=== PATIENT | male | born 1945 | race Caucasian/White ===

== ENCOUNTER → 2017-11-04 10:19 | Outpatient (CLI) | payer MEDICARE, SELFPAY ==
[2016-11-18 08:42] VITALS: BMI 29.2
[2017-11-04 11:27] LABS: AST(SGOT) 41 U/L (15-37); Alanine Aminotransfer ALT/SGPT 42 U/L (16-61); Albumin, Serum 3.9 g/dL (3.2-5.0); Alkaline Phosphatase 92 U/L (45-117); Bilirubin, Direct 0.22 mg/dL (0.00-0.30); Cholesterol 100 mg/dL (200); High Density Lipoprotein 56 mg/dL; Protein, Total 6.9 g/dL (6.4-8.2); Triglycerides 58 mg/dL; Very Low Density Lipoprotein 12 mg/dL (5-40)
== END ==
PROVIDERS: Family Provider Family Medicine; PCP Family Medicine; Visit Provider Internal Medicine Cardiovascular Disease
DX: I25.10 Atherosclerotic heart disease of native coronary artery without angina pectoris (principal); I25.2 Old myocardial infarction; E78.5 Hyperlipidemia, unspecified; Z95.5 Presence of coronary angioplasty implant and graft
CPT/HCPCS: 36415; 80061; 80076

== ENCOUNTER → 2017-11-23 12:40 | Outpatient (CLI) | payer MEDICARE, SELFPAY ==
[2016-11-18 08:42] VITALS: BMI 29.2
--- NOTE | 2017-11-23 12:41 | ECHOD_ITS ---
Reason For Study: CAD/ASHD Procedure This was a 2D Doppler, Color Flow transthoracic echocardiogram. Exam performed in department. Left Ventricle Normal size and thickness. The estimated ejection fraction is 60 %. Stage 1 diastolic dysfunction. There are regional wall motion abnormalities as specified. Mid-Anterior : Hypokinetic. Anterior [place] : Mildly hypokinetic. Right Ventricle Normal size and thickness. Normal systolic function. Atria Normal left atrium. Normal right atrium. Normal atrial septum. Mitral Valve The mitral valve is structurally normal. No prolapse or stenosis seen. Tricuspid Valve Normal tricuspid valve. Trivial tricuspid valve insufficiency. Right ventricular systolic pressure estimated to be 30 mmHg. Aortic Valve Normal aortic valve. Trisinus/trileaflet aortic valve. Pulmonic Valve Normal pulmonic valve. Great Vessels Normal aortic root. Normal arch. Normal inferior vena cava. Inferior vena cava collapse with sniff. Pericardium/Pleural No pericardial effusion. MMode/2D Measurements & Calculations LVIDd: 5.0 cm IVSd: 1.2 cm Ao root diam: 3.0 cm LVIDs: 3.5 cm LVPWd: 1.1 cm LA dimension: 3.8 cm RVDd: 2.2 cm FS: 30.5 % LAV(MOD-bp): 52.2 ml LA A4 area: 16.7 cm2 RA A4 area: 14.2 cm2 LAV(MOD-bp) Indexed: 25.1 ml/m2 LAV(MOD-sp2): 60.8 ml LAV(MOD-sp4): 44.0 ml Doppler Measurements & Calculations MV E max john: 45.9 cm/sec Lat Peak E' John: 7.6 cm/sec Med Peak E' John: 5.9 cm/sec MV A max john: 65.6 cm/sec E/E' lat: 6.1 E/E' med: 7.7 MV E/A: 0.70 Ao V2 max: 118.9 cm/sec LV V1 max: 116.2 cm/sec PA V2 max: 102.1 cm/sec Ao max P.7 mmHg LV V1 max P.4 mmHg TR max john: 250.0 cm/sec TR max P.0 mmHg Interpretation Summary The estimated ejection fraction is 60 %. Stage 1 diastolic dysfunction. Mid-Anterior : Hypokinetic Anterior [place] : Mildly hypokinetic Trivial tricuspid valve insufficiency. Right ventricular systolic pressure estimated to be 30 mmHg. Compared to echo report dated 11/18/2016, LV function has improved from 50% to 60% with mild residual mid anterior and elenita-apical hypokinesis. Ordering Physician: Ke Goldberg Referring Physician: Jean-Pierre Seymour Performed By: Madiha Ospina, ADLAID, RVT
== END ==
PROVIDERS: Family Provider Family Medicine; PCP Family Medicine; Visit Provider Internal Medicine Cardiovascular Disease
DX: I25.2 Old myocardial infarction (principal)
CPT/HCPCS: 93306

== ENCOUNTER → 2018-04-11 14:25 | Outpatient (CLI) | payer MEDICARE, SELFPAY ==
[2016-11-18 08:42] VITALS: BMI 29.2
[2018-04-11 15:35] LABS: Absolute Lymphocyte Count 1.26 X10^3/ul (0.83-4.51); Absolute Neutrophil Count 5.6 X10^3/uL (2.0-7.7); Basophil# 0.01 X10^3/uL; Basophil% 0.1 % (0-1); Eosinophil# 0.31 X10^3/uL; Eosinophils% 3.8 % (0-5); Hematocrit 43.6 % (40-54); Hemoglobin 14.6 g/dl (13.0-16.5); Lymphocyte # 1.26 X10^3/ul (4.0); Lymphocyte % 15.6 % (19-41); Mean Corp Hgb Conc 33.5 g/gl (32-36); Mean Corpuscular Hgb 31.6 pg (27.0-32.0); Mean Corpuscular Volume 94.4 fL (80-94); Monocyte# 0.91 X10^3/uL; Monocyte% 11.2 % (0-10); Neutrophil % 69.2 % (47-70); Platelet Count 184 K/mm3 (150-450); RBC Distribution Width CV 13.8 % (11.6-14.6); RBC Distribution Width SD 47.2 fl (35.1-43.9); Red Blood Count 4.62 M/mm3 (4.6-6.2); White Blood Count 8.1 K/mm3 (4.4-11.0)
[2018-04-11 15:36] LABS: POSITIVE COUNT NO; POSITIVE DIFFERENTIAL NO; POSITIVE MORPHOLOGY NO
[2018-04-11 15:49] LABS: ALB/GLOB Ratio 1.1 RATIO (0.9-2.4); AST(SGOT) 36 U/L (15-37); Alanine Aminotransfer ALT/SGPT 33 U/L (16-61); Albumin, Serum 3.9 g/dL (3.2-5.0); Alkaline Phosphatase 113 U/L (45-117); Anion Gap 9 (5-15); BUN 26 mg/dL (7-18); Calcium,Total 9.1 mg/dL (8.5-10.1); Chloride 101 mmol/L (98-107); Creatinine, Serum 1.04 mg/dL (0.70-1.30); EST Glomerular Filtration Rate 75 mL/min (>60); Est Glom Filt Rate - Afr Amer 91 mL/min (>60); Globulin 3.7 g/dL (2.2-4.2); Glucose 93 mg/dL (74-106); Potassium 4.2 mmol/L (3.5-5.1); Protein, Total 7.6 g/dL (6.4-8.2); Sodium Level 138 mmol/L (136-145)
[2018-04-11 16:02] LABS: Erythrocyte Sedimentation Rate 19 mm/hr (0-20)
== END ==
PROVIDERS: Family Provider Family Medicine; PCP Family Medicine; Visit Provider Family Medicine
DX: K57.32 Diverticulitis of large intestine without perforation or abscess without bleeding (principal)
CPT/HCPCS: 36415; 80053; 85025; 85652; 86140

== ENCOUNTER → 2018-12-20 09:00 | Outpatient (CLI) | payer MEDICARE, SELFPAY ==
[2016-11-18 08:42] VITALS: BMI 29.2
[2018-12-15 11:13] VITALS: BMI 27.3
[2018-12-20 10:34] LABS: AST(SGOT) 37 U/L (15-37); Alanine Aminotransfer ALT/SGPT 36 U/L (16-61); Albumin, Serum 3.6 g/dL (3.2-5.0); Alkaline Phosphatase 104 U/L (45-117); Bilirubin, Direct 0.26 mg/dL (0.00-0.30); Cholesterol 103 mg/dL (200); Globulin 3.3 g/dL (2.2-4.2); High Density Lipoprotein 55 mg/dL; Protein, Total 6.9 g/dL (6.4-8.2); Triglycerides 52 mg/dL; Very Low Density Lipoprotein 10 mg/dL (5-40)
== END ==
PROVIDERS: Family Provider Family Medicine; PCP Family Medicine; Referring Provider Internal Medicine Cardiovascular Disease; Visit Provider Internal Medicine Cardiovascular Disease
DX: E78.5 Hyperlipidemia, unspecified (principal); I25.10 Atherosclerotic heart disease of native coronary artery without angina pectoris
CPT/HCPCS: 36415; 80061; 80076

== ENCOUNTER → 2018-12-29 10:22 | Outpatient (CLI) | payer MEDICARE, SELFPAY ==
[2016-11-18 08:42] VITALS: BMI 29.2
[2018-12-15 11:13] VITALS: BMI 27.3
--- NOTE | 2018-12-29 10:23 | STEWCON_ITS ---
Reason For Study: CAD Stress Results Protocol: Anatoliy Protocol Maximum Predicted HR: 149 bpm Target HR: 127 bpm % Maximum Predicted HR: 95 % DurationHeart Rate Stage (mm:ss) (bpm) BP Comment Baseline 69 122/80No Chest Pain; Diluted Definity 3 ML Given Anatoliy Protocol Stage I 3:00 96 130/72No Chest Pain Anatoliy Protocol Stage II 3:00 107 138/64No Chest Pain Anatoliy Protocol Stage III 3:00 133 146/60No Chest Pain Anatoliy Protocol Stage IV 0:30 141 / No Chest Pain Recovery 70 124/72No Chest Pain Stress Duration: 9:30 mm:ss Maximum Stress HR: 141 bpm METS: 11 Baseline Echocardiogram Findings The estimated ejection fraction is 65 %. Stress Echo Wall motion Data Resting WM Intermediate WM Stress WM Resting Wall Motion Wall Motion Stress No regional wall motion No regional wall motion abnormalities noted. abnormalities noted. EKG Data The baseline ECG displays normal sinus rhythm. The patient exercised according to the regular Anatoliy protocol for a total duration of 9:30. The maximum heart rate attained was 155 beats per minute. This was 104% of maximum predicted heart rate. The patient exercised into stage 4 of the Anatoliy protocol. During stress, there were no ST or T wave changes noted to suggest ischemia. No clinical angina was noted. Interpretation Summary The estimated ejection fraction is 65 %. Normal, adequate, treadmill echocardiogram. Negative for ischemia by EKG and echocardiographic criteria. No anginal symptoms noted. Rare PVCs noted. Appropriate blood pressure response to exercise. Average exercise capacity for age. Test terminated due to fatigue. Final LVEF is 75%. Decreased sensitivity due to poor echo windows requiring Definity enhancing agent. No complications. The study was technically difficult. Contrast injection was performed. Ordering Physician: Ke Goldberg Referring Physician: Jean-Pierre Seymour Performed By: Madiha Ospina, ADALID, RVT
== END ==
PROVIDERS: Family Provider Family Medicine; PCP Family Medicine; Referring Provider Internal Medicine Cardiovascular Disease; Visit Provider Internal Medicine Cardiovascular Disease
DX: I25.10 Atherosclerotic heart disease of native coronary artery without angina pectoris (principal); I25.2 Old myocardial infarction; E78.5 Hyperlipidemia, unspecified; Z95.5 Presence of coronary angioplasty implant and graft
CPT/HCPCS: 93017; 93350; Q9957; A4216; C8928

== ENCOUNTER → 2020-04-02 09:09 | Outpatient (CLI) | payer MEDICARE, SELFPAY ==
[2016-11-18 08:42] VITALS: BMI 29.2
[2019-07-06 10:18] VITALS: BMI 28.2
[2020-04-02 10:01] LABS: ALB/GLOB Ratio 1.2 RATIO (0.9-2.4); AST(SGOT) 42 U/L (15-37); Alanine Aminotransfer ALT/SGPT 40 U/L (16-61); Albumin, Serum 3.9 g/dL (3.2-5.0); Alkaline Phosphatase 112 U/L (45-117); Anion Gap 2 (5-15); BUN 30 mg/dL (7-18); BUN/Creat Ratio 30.5 RATIO (10-20); Calcium,Total 8.9 mg/dL (8.5-10.1); Chloride 110 mmol/L (98-107); Cholesterol 109 mg/dL (200); Creatinine, Serum 0.98 mg/dL (0.70-1.30); EST Glomerular Filtration Rate 80 mL/min (>60); Est Glom Filt Rate - Afr Amer 96 mL/min (>60); Globulin 3.2 g/dL (2.2-4.2); Glucose 100 mg/dL (74-106); High Density Lipoprotein 63 mg/dL; PSA,Total - Annual Screen 0.78 ng/mL (0.00-4.00); Potassium 4.2 mmol/L (3.5-5.1); Protein, Total 7.1 g/dL (6.4-8.2); Sodium Level 139 mmol/L (136-145); Triglycerides 44 mg/dL; Very Low Density Lipoprotein 9 mg/dL (5-40)
== END ==
PROVIDERS: PCP Family Medicine; Referring Provider Family Medicine; Visit Provider Family Medicine
DX: I25.10 Atherosclerotic heart disease of native coronary artery without angina pectoris (principal); Z12.5 Encounter for screening for malignant neoplasm of prostate
CPT/HCPCS: 36415; 80053; 80061; 84153; G0103

== ENCOUNTER → 2020-04-10 13:52 | Outpatient (CLI) | payer MEDICARE, SELFPAY ==
[2016-11-18 08:42] VITALS: BMI 29.2
[2019-07-06 10:18] VITALS: BMI 28.2
[2020-04-10 16:16] LABS: Absolute Lymphocyte Count 1.53 X10^3/uL (0.83-4.51); Absolute Neutrophil Count 2.4 X10^3/uL (2.0-7.7); Basophil# 0.01 X10^3/uL; Basophil% 0.2 % (0-1); Eosinophil# 0.22 X10^3/uL; Eosinophils% 4.6 % (0-5); Hematocrit 44.4 % (40-54); Hemoglobin 14.5 g/dL (13.0-16.5); Lymphocyte # 1.53 X10^3/ul (4.0); Lymphocyte % 32.1 % (19-41); Mean Corp Hgb Conc 32.7 g/dL (32-36); Mean Corpuscular Hgb 31.5 pg (27.0-32.0); Mean Corpuscular Volume 96.5 fL (80-94); Mean Platelet Vol. 9.1 fl (6.2-12.0); Monocyte# 0.63 X10^3/uL; Monocyte% 13.2 % (0-10); NRBC Flagged by Analyzer 0 % (0-5); Neutrophil # 2.37 X10^3/uL (2.7-7.7); Neutrophil % 49.9 % (47-70); Platelet Count 200 K/mm3 (150-450); RBC Distribution Width CV 13.8 % (11.6-14.6); RBC Distribution Width SD 49.1 fl (35.1-43.9); White Blood Count 4.8 K/mm3 (4.4-11.0)
[2020-04-10 16:43] LABS: LDH 191 U/L (87-241)
[2020-04-12 05:07] LABS: HEPATITIS B SURFACE AG Negative (Negative); Hepatitis A AB, Total Negative (Negative); Hepatitis A IgM Antibody Negative (Negative); Hepatitis B Core AB IgM Negative (Negative); Hepatitis B Core Ab Total Negative (Negative); Hepatitis C Ab <0.1 s/co ratio (0.0-0.9)
[2020-04-12 08:40] LABS: Hep B Surface Antibodies Reactive (.)
== END ==
PROVIDERS: PCP Family Medicine; Referring Provider Family Medicine; Visit Provider Family Medicine
DX: E80.6 Other disorders of bilirubin metabolism (principal)
CPT/HCPCS: 36415; 83615; 85025; 86704; 86705; 86706; 86708; 86709; 86803; 87340

== ENCOUNTER → 2020-04-18 08:29 | Outpatient (CLI) | payer MEDICARE, SELFPAY ==
[2016-11-18 08:42] VITALS: BMI 29.2
[2019-07-06 10:18] VITALS: BMI 28.2
--- NOTE | 2020-04-18 08:32 | US_ITS ---
STUDY: ABDOMINAL ULTRASOUND - RIGHT UPPER QUADRANT REASON FOR VISIT: Male, 75 years old hyperbilirubinemia TECHNIQUE: Ultrasound evaluation of the right upper quadrant was performed with real-time and static hernandez-scale imaging. TECHNICAL QUALITY: Limited. Examination limited by bowel gas. COMPARISON: None. FINDINGS: Liver: The liver measures 13.7 cm. There is normal echogenicity of the liver. The bile ducts are within normal limits. There is hepatic color flow. The direction of portal flow is hepatopetal. There is no demonstrated mass lesion. Gallbladder: Normal distended gallbladder. The gallbladder wall measures 1.5 mm. There is a negative sonographic Salmeron''s sign. There is no pericholecystic fluid. There are no gallstones. Common Bile Duct (C.B.D.): The common bile duct measures 2.9 mm. Pancreas: There is nonvisualization of the pancreas due to overlying bowel gas. There is normal echogenicity of the pancreas. There is no demonstrated pancreatic mass or cyst. Right Kidney: Normal size of the right kidney. The right kidney measures 10.9 cm x 5.4 cm x 5.9 cm. Normal renal cortex. The right cortex measures 1.9 cm. 2 small renal cysts are seen. The largest cyst measures 9 mm x 10 mm x 8 mm. There is no right hydronephrosis. US/Abdomen Limited IMPRESSION: Limited examination due to bowel gas. 2. Small right renal cysts. Electronically Signed: Mj Gorman, at 10:40 EDT , Service support ,
== END ==
PROVIDERS: PCP Family Medicine; Referring Provider Family Medicine; Visit Provider Family Medicine
DX: E80.6 Other disorders of bilirubin metabolism (principal)
CPT/HCPCS: 76705

== ENCOUNTER 2020-05-19 22:56 | Emergency (ER) | payer MEDICARE, SELFPAY ==
[2016-11-18 08:42] VITALS: BMI 29.2
[2020-04-22 14:56] VITALS: BMI 26.6
[2020-05-19 22:58] VITALS: BP 105/66; PULSE 67; RESP 14; TEMP 36.4; O2SAT 99; BMI 27.6
--- NOTE | 2020-05-19 23:48 | ED.VISSUMM ---
- ER Visit Summary Date of Service: 05/19/20 Chief Complaint: Syncope History of Present Illness: The patient is a 75 M who presents with syncopal episode that occurred tonight. Patient states he has been having nausea throughout the day today. Patient states that he was watching TV and got up to use the bathroom. Patient states when he got to the bathroom he felt lightheaded. Patient states he passed out at that time. Patient thinks he was only out for approximately 1 minute. Patient denies any chest pain or palpitations. Patient denies any shortness of breath or cough. Patient denies any lower extremity pain or swelling. Physical Examination: Vital signs are stable. Patient is afebrile. Patient is in no acute distress. Oral mucosa is pink and moist. Pupils are equal, round, and reactive to light bilaterally. Extraocular muscles are intact. There are some mild tenderness and ecchymosis over the left periorbital area. There is a superficial abrasion over the anterior nose. There is no septal deviation or septal hematoma noted. Heart was regular rate and rhythm. Lungs are clear and equal bilaterally. Abdomen is soft. Bowel sounds are normal. There is no tenderness. Cranial nerves II through XII are intact. There are no focal motor or sensory deficits. Test Results: EKG shows normal sinus rhythm with a rate of 66. There are no acute ST or T wave changes. This is unchanged compared to previous EKG dated 11/19/2016. CBC and comprehensive metabolic profile were obtained and were essentially within normal limits. Troponin was normal. CT scan of the brain was obtained. There is no acute intracranial abnormality noted. This was interpreted by the radiologist and reviewed by myself. Emergency Department Course and Treatment: Patient is feeling better on reevaluation. Patient was advised of his findings. Patient was instructed to follow-up with his primary care physician in 5 to 7 days. Patient is low risk for acute cardiac event from syncope according to the Evans syncope rules. Patient understood and was agreeable with the plan. All questions were answered. Disposition: Discharge home Impression: Syncope This note was generated with [employer] software. It may contain incorrect words, spelling, and punctuation that were not noted in review of the chart prior to signing ED Disposition - Plan for ED Patient: Disposition: Home or Assisted Living Diagnosis: Syncope Instructions: ED Fainting Uncertain Cause Referrals: Jean-Pierre Wright MD [Primary Care Provider] - 3-5 Days
--- NOTE | 2020-05-19 23:51 | CT_ITS ---
STUDY: CT BRAIN WITHOUT CONTRAST REASON FOR EXAM: Male, 75 years old. SYNCOPE AFTER ABD PAIN, FELL AND HIT HEAD, ABRASION TO BRIDGE OF NOSE AND BLACK EYE, PT ON THINNERS RADIATION DOSAGE (If Supplied By Facility): CTDIvol = ( 44.99 ) mGy, DLP = ( 914.22 ) mGycm TECHNIQUE: Transaxial CT imaging of the brain was performed without administration of intravenous contrast material. Individualized dose optimization techniques were used for this CT. COMPARISON: No relevant priors. FINDINGS: Normal soft tissue structures. Normal calvarium. Normal size ventricles and extra-axial spaces for the patient''s age. Normal white matter tracts of the cerebral hemispheres. Normal basal ganglia and thalami. Normal brainstem. Normal cerebellum. There is no intracranial hemorrhage. There are no findings of an acute ischemic infarction. There is mucosal thickening in the left maxillary sinus. CT/Brain/Head without Contrast IMPRESSION: Negative unenhanced CT scan of the brain. Electronically Signed: Tex Markham, at 0:13 EDT Tel , Service support ,
--- NOTE | 2020-05-19 23:51 | EKG12_ITS ---
Test Reason : SYNCOPE Blood Pressure : / mmHG Vent. Rate : 066 BPM Atrial Rate : 066 BPM P-R Int : 154 ms QRS Dur : 076 ms QT Int : 418 ms P-R-T Axes : -17 -42 023 degrees QTc Int : 438 ms Normal sinus rhythm Left axis deviation Low voltage QRS Nonspecific T wave abnormality Abnormal ECG Confirmed by ZACHARIAH DALE, MIKY ([id number]), market editor HEAVEN REECE ([id number]) on 05/21/2020 10:34:43 AM Referred By: NILES Confirmed By:MIKY SONI MD
[2020-05-20 00:04] LABS: Absolute Lymphocyte Count 2.28 X10^3/uL (0.83-4.51); Absolute Neutrophil Count 5.8 X10^3/uL (2.0-7.7); Basophil# 0.02 X10^3/uL; Basophil% 0.2 % (0-1); Eosinophil# 0.28 X10^3/uL; Hematocrit 40.7 % (40-54); Hemoglobin 13.5 g/dL (13.0-16.5); Lymphocyte # 2.28 X10^3/ul (4.0); Lymphocyte % 24.2 % (19-41); Mean Corp Hgb Conc 33.2 g/dL (32-36); Mean Corpuscular Hgb 32.8 pg (27.0-32.0); Mean Corpuscular Volume 98.8 fL (80-94); Mean Platelet Vol. 9.3 fl (6.2-12.0); Monocyte# 0.94 X10^3/uL; NRBC Flagged by Analyzer 0 % (0-5); Neutrophil % 61.5 % (47-70); Platelet Count 188 K/mm3 (150-450); RBC Distribution Width CV 13.8 % (11.6-14.6); RBC Distribution Width SD 50.4 fl (35.1-43.9); Red Blood Count 4.12 M/mm3 (4.6-6.2); White Blood Count 9.4 K/mm3 (4.4-11.0)
[2020-05-20 00:15] LABS: ALB/GLOB Ratio 1.2 RATIO (0.9-2.4); AST(SGOT) 30 U/L (15-37); Alanine Aminotransfer ALT/SGPT 31 U/L (16-61); Albumin, Serum 3.5 g/dL (3.2-5.0); Alkaline Phosphatase 84 U/L (45-117); Anion Gap 4 (5-15); BUN 48 mg/dL (7-18); Calcium,Total 8.7 mg/dL (8.5-10.1); Chloride 107 mmol/L (98-107); Creatinine, Serum 1.09 mg/dL (0.70-1.30); EST Glomerular Filtration Rate 70 mL/min (>60); Est Glom Filt Rate - Afr Amer 85 mL/min (>60); Estimated Creatinine Clearance 64.29 ml/min; Glucose 143 mg/dL (74-106); Potassium 4.2 mmol/L (3.5-5.1); Protein, Total 6.5 g/dL (6.4-8.2); Sodium Level 140 mmol/L (136-145)
[2020-05-20 00:23] VITALS: BP 102/72; BP 110/70; BP 84/61; PULSE 63; PULSE 81; PULSE 95
[2020-05-20 00:32] LABS: Bacteria 0 SEEN /hpf (None Seen); Color, Urine Yellow (Yellow); Glucose, Dipstick Normal (Normal); Ketone-Dipstick 50 mg/dl (Negative); Leukocyte Esterase-Dipstick Negative /ul (Negative); Mucous, Urine 0 SEEN /hpf (<or=2+); Nitrite-Dipstick Negative (Negative); Occult Blood-Urine 10 /ul (Negative); Protein-Dipstick Negative (Negative); Squamous Epithelial Cells - UA 0 SEEN /hpf (0-5); Urine Bilirubin Dipstick Negative (Negative); Urine Clarity Clear (Clear); Urine Urobilinogen 1 mg/dl (Normal); White Blood Cells 0 SEEN /hpf (0-5)
[2020-05-20 00:38] LABS: Red Blood Cells-Urine 0-5 SEEN /hpf (0-5)
[2020-05-20 01:03] VITALS: BP 108/71; PULSE 66; RESP 16; O2SAT 97
[2020-05-20] MEDS: 0.9% Normal Saline 1,000 ML 1000 ML IV (01:04)
[2020-05-20 03:00] VITALS: BP 107/68; PULSE 64; RESP 18; O2SAT 97
== END 2020-05-20 03:02 | disposition home or self-care (01) ==
PROVIDERS: Emergency Provider Emergency Medicine; PCP Family Medicine
DX: R55 Syncope and collapse (principal); I25.10 Atherosclerotic heart disease of native coronary artery without angina pectoris
CPT/HCPCS: 70450; 80053; 81001; 84484; 85025; 93005; 99285; J7030; A4216

== ENCOUNTER → 2020-06-04 13:31 | Outpatient (CLI) | payer MEDICARE, SELFPAY ==
[2016-11-18 08:42] VITALS: BMI 29.2
[2020-05-19 22:58] VITALS: BMI 27.6
--- NOTE | 2020-06-04 13:32 | ECHOD_ITS ---
Reason For Study: CAD/ASHD Procedure This was a 2D Doppler, Color Flow transthoracic echocardiogram. Exam performed in department. Left Ventricle Normal LV size. Segmental dysfunction with preserved ejection fraction (see wall motion). The estimated ejection fraction is 60 %. No evidence for diastolic dysfunction. Mid-Anterior : Hypokinetic. Anterior [place] : Hypokinetic. Right Ventricle Normal RV size. Normal systolic function. Atria Normal left atrium. Normal right atrium. No doppler evidence for ASD. Mitral Valve There is no mitral annular calcification. Normal mitral valve. Mild (1+) mitral valve insufficiency. Tricuspid Valve Normal tricuspid valve. Trivial tricuspid valve insufficiency. Aortic Valve Trisinus/trileaflet aortic valve. Mild diffuse aortic valve thickening. Mild focal aortic valve calcification. Trivial aortic valve insufficiency. Pulmonic Valve The pulmonic valve is not well visualized. Great Vessels Normal sized aortic root. Pericardium/Pleural No pericardial effusion. Epicardial fat. MMode/2D Measurements & Calculations LVIDd: 4.3 cm IVSd: 1.4 cm Ao root diam: 3.4 cm LVIDs: 2.6 cm LVPWd: 1.2 cm LA dimension: 3.6 cm FS: 38.4 % LAV(MOD-bp): 39.5 ml LA A4 area: 15.0 cm2 RA A4 area: 12.1 cm2 LAV(MOD-bp) Indexed: 19.1 ml/m2 LAV(MOD-sp2): 50.6 ml LAV(MOD-sp4): 30.0 ml Time Measurements MV dec time: 0.26 sec Doppler Measurements & Calculations MV E max john: 63.4 cm/sec Lat Peak E' John: 10.6 cm/sec Med Peak E' John: 7.9 cm/sec MV A max john: 84.9 cm/sec E/E' lat: 6.0 E/E' med: 8.1 MV E/A: 0.75 MV V2 max: 90.6 cm/sec MV P1/2t max john: 70.5 cm/sec Ao V2 max: 127.3 cm/sec MV max P.3 mmHg MV P1/2t: 105.7 msec Ao max P.5 mmHg MV V2 mean: 41.9 cm/sec MV dec slope: 195.4 cm/sec2 MV mean P.86 mmHg MVA(P1/2t): 2.1 cm2 MV V2 VTI: 29.7 cm LV V1 max: 106.9 cm/sec PA V2 max: 88.6 cm/sec LV V1 max P.6 mmHg Interpretation Summary Segmental dysfunction with preserved ejection fraction (see wall motion). The estimated ejection fraction is 60 %. Mild (1+) mitral valve insufficiency. Trivial tricuspid valve insufficiency. Mild diffuse aortic valve thickening. Mild focal aortic valve calcification. Trivial aortic valve insufficiency. Epicardial fat. No evidence for diastolic dysfunction. Ordering Physician: Vincent Malone Referring Physician: Jean-Pierre Wright Performed By: Rudi Gibson RCS
== END ==
PROVIDERS: PCP Family Medicine; Referring Provider Internal Medicine Cardiovascular Disease; Visit Provider Internal Medicine Cardiovascular Disease
DX: I25.10 Atherosclerotic heart disease of native coronary artery without angina pectoris (principal); E78.5 Hyperlipidemia, unspecified
CPT/HCPCS: 93306

== ENCOUNTER → 2021-02-27 18:02 | Outpatient (CLI) | payer MEDICARE, SELFPAY ==
[2016-11-18 08:42] VITALS: BMI 29.2
[2020-12-11 12:59] VITALS: BMI 26.7
[2021-02-27 20:35] LABS: Probe Check PASS
== END ==
PROVIDERS: PCP Family Medicine; Visit Provider Family Medicine
DX: B34.9 Viral infection, unspecified (principal)
CPT/HCPCS: 87633; 87635; U0005; U0003

== ENCOUNTER 2021-02-28 14:50 | Inpatient (IN) | payer MEDICARE, SELFPAY ==
[2016-11-18 08:42] VITALS: BMI 29.2
[2020-12-11 12:59] VITALS: BMI 26.7
[2021-02-28] VITALS (9 sets, daily range): BP systolic 96–132; BP diastolic 64–105; PULSE 68–85; RESP 16–19; TEMP 36.6–37.7; O2SAT 94–96; BMI 25.8; BMI 26.0
--- NOTE | 2021-02-28 15:03 | EKG12_ITS ---
Test Reason : Blood Pressure : / mmHG Vent. Rate : 084 BPM Atrial Rate : 084 BPM P-R Int : 146 ms QRS Dur : 092 ms QT Int : 386 ms P-R-T Axes : -10 -41 -24 degrees QTc Int : 456 ms Normal sinus rhythm Left axis deviation Anterior infarct , age undetermined , cannot be excluded ST & T wave abnormality, consider lateral ischemia Abnormal ECG Confirmed by HEBERT DALE, CHELSEA ([id number]), assistant film editor HEAVEN REECE ([id number]) on 03/04/2021 9:02:01 AM Referred By: Crys Mckinley Confirmed By:CHELSEA AMBROSIO MD
--- NOTE | 2021-02-28 15:05 | EX.ED.DYSGE1 ---
HPI History of Present Illness Chief Complaint: Shortness of Breath Informant: patient Onset/Context/Timing Onset: Days Context: Gradual Onset Current Severity: Mild Maximum Severity: Mild Narrative Narrative: Patient presents secondary to increasing shortness of breath. He was diagnosed with Covid 2 days ago on an outpatient test. He states overall has not been feeling well for 2 weeks. He is noted increased shortness of breath with cough over the past 2 days. He denies significant exertional dyspnea. He denies chest pain. He denies fever or chills. [facility] Medical History Atherosclerosis of coronary artery of [place] heart without angina pectoris Hyperlipidemia Old anterior myocardial infarction Syncope Home Medications aspirin 81 mg PO DAILY@0800 #30 tab 11/19/16 [Rx Last Taken Unknown] atorvastatin 40 mg tablet 40 mg PO QHS #90 tab 12/11/20 [Rx Last Taken Unknown] clopidogrel 75 mg tablet 75 mg PO QDAY #90 tab 12/11/20 [Rx Last Taken Unknown] losartan 25 mg tablet 25 mg PO QDAY #90 tab 12/11/20 [Rx Last Taken Unknown] metoprolol tartrate 25 mg tablet 12.5 mg PO BID #90 tab 12/11/20 [Rx Last Taken Unknown] Allergy/AdvReac Type Severity Reaction Status Date / Time lisinopril AdvReac Dry cough Verified 02/28/21 15:02 Family History Mother Breast cancer Surgical History History of coronary artery stent placement (~11/17/16) Social History Smoking Status: Former smoker ROS ROS ED Constitutional Constitutional ED: Denies chills or fever(s) Eyes Eyes: Denies change in vision ENT ENT ED: Denies sore throat Cardiovascular Cardiovascular: Denies chest pain Respiratory/Chest Respiratory/Chest: Reports cough and dyspnea Gastrointestinal Gastrointestinal: Denies abdominal pain, diarrhea, nausea or vomiting Genitourinary Genitourinary ED: Denies dysuria Musculoskeletal Musculoskeletal: Reports myalgias; Denies back pain Integumentary Denies rash Neurologic Neurologic: Denies headache(s) or weakness Psychiatric Psychiatric: Denies anxiety or depression Allergic/Immunologic Allergic/Immunologic ED: Denies urticaria EXAM Physical Exam Const Vital Signs: 02/28/21 14:52 02/28/21 14:57 02/28/21 14:58 Temperature 99.8 F H 99.8 F H Temperature Source Oral Oral Pulse Rate 82 82 Respiratory Rate 18 18 Respiratory Effort Short of Breath Respiratory Depth Normal Respiratory Pattern Tachypnea Blood Pressure 132/105 H 132/105 H Blood Pressure Mean 114 114 Pulse Ox 96 96 Oxygen Delivery Method Room Air Room Air Room Air 02/28/21 16:50 02/28/21 16:56 02/28/21 17:00 Temperature 98 F 98 F Temperature Source Oral Oral Pulse Rate 72 68 Respiratory Rate 19 H 19 H 18 Respiratory Effort Respiratory Depth Respiratory Pattern Blood Pressure 96/64 96/66 Blood Pressure Mean 74 76 Pulse Ox 95 94 Oxygen Delivery Method Room Air Room Air Positive well nourished and well developed General Appearance ED: well developed HEENT Reports normocephalic and head/scalp atraumatic Eyes PERRL and EOMs intact bilaterally Neck supple Chest Wall inspection of chest normal and palpation of chest normal Resp normal respiratory effort and clear to auscultation bilaterally Cardio regular rate and regular rhythm GI normal to inspection, nondistended, normoactive bowel sounds Palpation: soft Extremity normal to inspection Neuro oriented x3 and no sensory deficits noted Sensorium / Orientation: alert Motor Exam: strength 5/5 throughout Psych mental status grossly normal Skin no rashes or lesions noted MDM MDM MDM Narrative Medical decision making narrative: Lab work, chest x-ray, blood cultures obtained. Lab Data Attestation: I reviewed the patient's lab results. Labs: Laboratory Results - last 24 hr 02/28/21 02/28/21 02/28/21 14:55 14:55 15:15 WBC 4.2 L RBC 4.67 Hgb 14.9 Hct 43.2 MCV 92.5 MCH 31.9 MCHC 34.5 RDW Std Deviation 45.9 H RDW Coeff of Tiny 13.4 Plt Count 131 L MPV 10.1 Immature Gran % (Auto) 0.200 Neut % (Auto) 73.0 H Lymph % (Auto) 17.0 L [place] % (Auto) 9.4 Eos % (Auto) 0.2 Baso % (Auto) 0.2 Absolute Neuts (auto) 3.0 Absolute Lymphs (auto) 0.71 L Nucleated RBC % 0 Differential Comment SCANNED D-Dimer Quant (PE/DVT) 1.54 H* Sodium 137 Potassium 2.9 L Chloride 101 Carbon Dioxide 27.0 Anion Gap 9 BUN 21 H Creatinine 1.08 Estim Creat Clear Calc 65.86 Est GFR (MDRD) Af Amer 86 Est GFR (MDRD) Non-Af 71 BUN/Creatinine Ratio 19.4 Glucose 151 H Lactic Acid Calcium 8.4 L Troponin I High Sens 9.3 02/28/21 15:15 WBC RBC Hgb Hct MCV MCH MCHC RDW Std Deviation RDW Coeff of Tiny Plt Count MPV Immature Gran % (Auto) Neut % (Auto) Lymph % (Auto) [place] % (Auto) Eos % (Auto) Baso % (Auto) Absolute Neuts (auto) Absolute Lymphs (auto) Nucleated RBC % Differential Comment D-Dimer Quant (PE/DVT) Sodium Potassium Chloride Carbon Dioxide Anion Gap BUN Creatinine Estim Creat Clear Calc Est GFR (MDRD) Af Amer Est GFR (MDRD) Non-Af BUN/Creatinine Ratio Glucose Lactic Acid 2.9 H* Calcium Troponin I High Sens Radiography Chest X-Ray - ED: 1 View, Read by ED Physician and Right Infiltrate Diagnostic Testing: Radiology Impression Chest X-Ray 02/28/21 15:43 IMPRESSION: . Findings consistent with Covid 19 pneumonia Electronically Signed: Mil Frey MD at 16:25 EDT , Service support , Chest CTA 02/28/21 16:25 IMPRESSION: Findings consistent with Covid 19 pneumonia. No evidence for pulmonary embolus Electronically Signed: Mil Frey MD at 16:52 EDT , Service support , EKG Initial EKG: Attestation: I personally reviewed and interpreted this EKG as follows: Interpretation: Sinus Rhythm (Sinus 84 with anterior lateral T inversions noted. Lateral inversions are new when compared to prior study) Treatment and Re-Evaluation Comments:: Patient's lab work is reviewed. Potassium is low at 2.9 is replaced orally. D-dimer is elevated. CTA is obtained that shows no evidence of PE but bilateral Covid pneumonia is appreciated. Walking in the room patient's O2 sat goes from 94 to 92% on room air but he becomes significantly dyspneic. Patient is given a dose of Decadron and I will discuss with hospitalist for admission. Discharge Plan Triage Chief Complaint: Shortness of Breath ED Provider: Anitra Mcpherson Dx/Rx/DC Orders Clinical Impression: Pneumonia due to 2019-nCoV Prescriptions: No Action metoprolol tartrate 25 mg tablet 12.5 mg PO BID Qty: 90 RF: 4 losartan 25 mg tablet 25 mg PO QDAY Qty: 90 RF: 4 clopidogrel [Plavix] 75 mg tablet 75 mg PO QDAY Qty: 90 RF: 4 atorvastatin 40 mg tablet 40 mg PO QHS Qty: 90 RF: 4 aspirin 81 MG tablet 81 mg PO DAILY@0800 Qty: 30 RF: 11 Primary Care Provider: Jean-Pierre Wright Referrals: Jean-Pierre Wright MD [Primary Care Provider] - Disposition Disposition: Acute Care Hospital [facility]
[2021-02-28] MEDS: Acetaminophen 500 MG Tablet 1000 MG PO (15:15)
[2021-02-28 15:36] LABS: Anion Gap 9 (5-15); BUN 21 mg/dL (7-18); BUN/Creat Ratio 19.4 RATIO (10-20); Calcium,Total 8.4 mg/dL (8.5-10.1); Chloride 101 mmol/L (98-107); Creatinine, Serum 1.08 mg/dL (0.70-1.30); EST Glomerular Filtration Rate 71 mL/min (>60); Est Glom Filt Rate - Afr Amer 86 mL/min (>60); Estimated Creatinine Clearance 65.86 ml/min; Glucose 151 mg/dL (74-106); Potassium 2.9 mmol/L (3.5-5.1); Sodium Level 137 mmol/L (136-145); Troponin-I HS 9.3 pg/mL (3.0-78.5)
[2021-02-28 15:37] LABS: Absolute Lymphocyte Count 0.71 X10^3/uL (0.83-4.51); Basophil# 0.01 X10^3/uL; Basophil% 0.2 % (0-1); Eosinophil# 0.01 X10^3/uL; Eosinophils% 0.2 % (0-5); Hematocrit 43.2 % (40-54); Hemoglobin 14.9 g/dL (13.0-16.5); Lymphocyte # 0.71 X10^3/ul (0.83-4.51); Mean Corp Hgb Conc 34.5 g/dL (32-36); Mean Corpuscular Hgb 31.9 pg (27.0-32.0); Mean Corpuscular Volume 92.5 fL (80-94); Mean Platelet Vol. 10.1 fl (6.2-12.0); Monocyte# 0.39 X10^3/uL; Monocyte% 9.4 % (0-10); NRBC Flagged by Analyzer 0 % (0-5); Neutrophil # 3.04 X10^3/uL (2.7-7.7); POSITIVE MORPHOLOGY YES; Platelet Count 131 K/mm3 (150-450); RBC Distribution Width CV 13.4 % (11.6-14.6); RBC Distribution Width SD 45.9 fl (35.1-43.9); Red Blood Count 4.67 M/mm3 (4.6-6.2); White Blood Count 4.2 K/mm3 (4.4-11.0)
--- NOTE | 2021-02-28 15:43 | RAD_ITS ---
STUDY: X-RAY CHEST REASON FOR EXAM: Male, 76 years old. sob, cough, + covid TECHNIQUE: AP portable COMPARISON: 11/26/2016 FINDINGS: There is left lower lobe infiltrate and to lesser extent at the right base in association with patchy opacification peripherally in the right upper and left lower lobes consistent with Covid 19 pneumonia.. There is no demonstrated pleural abnormality. Normal size heart. Normal mediastinum and bakari. Normal visualized pulmonary arteries. Normal visualized aortic arch and descending thoracic aorta. Dorsal spine and shoulders demonstrate degenerative change. Normal visualized ribs, clavicles, and shoulders. There is no demonstrated abnormality of the visualized soft tissue structures of the upper abdomen. RAD/Chest 1 View (Portable) IMPRESSION: . Findings consistent with Covid 19 pneumonia Electronically Signed: Mil Frey MD at 16:25 EDT , Service support ,
[2021-02-28 15:50] LABS: Differential Indicated SCAN CRITERIA MET
[2021-02-28 15:51] LABS: D-Dimer Quantitative (DVT/PE) 1.54 FEU/ug/m (0.27-0.49)
[2021-02-28 16:09] LABS: Lactic Acid 2.9 mmol/L (0.4-1.9)
--- NOTE | 2021-02-28 16:25 | CT_ITS ---
STUDY: CTA CHEST REASON FOR EXAM: Male, 76 years old. PE RADIATION DOSAGE (If Supplied By Facility): CTDIvol = ( 10.02 ) mGy, DLP = ( 402.53 ) mGycm TECHNIQUE: The examination was performed with the intravenous administration of IV 100mL [id number]-370. Post-processing of the angiographic images was performed, with multiplanar reformation and 3D reconstruction. Individualized dose optimization techniques were used for this CT. COMPARISON: None. FINDINGS: Normal enhancement of the main pulmonary artery and right and left pulmonary arteries. Normal enhancement of the bilateral peripheral pulmonary arteries. There is no demonstrated pulmonary embolism. Normal thoracic aorta and visualized great vessels. There is no demonstrated aortic dissection. Heart is mildly enlarged and there is coronary artery disease.. Normal mediastinum. Normal hilar regions. Normal visualized trachea and bronchi. The lungs are well expanded. There are patchy areas and peripheral confluent zones of diffuse groundglass opacity consistent with Covid 19 pneumonia most severe in the left lower and right upper lobes. Normal pleura. Normal chest wall structures. Dorsal spine demonstrates scoliosis and degenerative changes. Small hiatal hernia is noted. Normal visualized upper abdomen. CT/CTA Chest W/WO Contrast IMPRESSION: Findings consistent with Covid 19 pneumonia. No evidence for pulmonary embolus Electronically Signed: Mil Frey MD at 16:52 EDT , Service support ,
[2021-02-28 16:30] LABS: Differential Comment SCANNED
[2021-02-28] MEDS: Potassium Chloride Oral Tablet 20 MEQ 40 MEQ PO (16:49)
[2021-02-28] MEDS: dexAMETHasone 4 MG Tablet 6 MG PO (17:29)
--- NOTE | 2021-02-28 18:24 | HP.PCM_ITS ---
HPI - General HPI Narrative VALERIA EMERY, is a 76 M who presents cough and exertional dyspnea. Did have some other systemic symptoms of malaise and aches. Tested positive for COVID-19 infection 2 days ago. Presented to the hospital because cough is worsening. Patient otherwise feels and looks quite well. Patient spouse is also positive for COVID-19 infection. He denies any recent travel or sick contacts. Denies any abdominal pain nausea vomiting. [facility] Medical History (Updated 02/28/21 @ 18:[address] German Li MD) Atherosclerosis of coronary artery of nez perce heart without angina pectoris Coronary artery disease Hyperlipidemia Old anterior myocardial infarction Syncope Home Medications aspirin 81 mg PO DAILY@0800 #30 tab 11/19/16 [Rx Last Taken 3 Days Ago ~02/25/21] atorvastatin 40 mg tablet 40 mg PO QHS #90 tab 12/11/20 [Rx Last Taken 3 Days Ago ~02/25/21] metoprolol tartrate 25 mg tablet 12.5 mg PO BID #90 tab 12/11/20 [Rx Last Taken 3 Days Ago ~02/25/21] albuterol sulfate 2 inh INHALATION Q4H PRN 02/28/21 [History Last Taken 02/28/21] azithromycin 250 mg PO DAILY 02/28/21 [History Last Taken 02/28/21] clopidogrel [Plavix] 75 mg PO DAILY 02/28/21 [History Last Taken 3 Days Ago ~02/25/21] latanoprost 1 drp EACH EYE QHS 02/28/21 [History Last Taken 02/27/21] losartan 25 mg PO DAILY 02/28/21 [History Last Taken 3 Days Ago ~02/25/21] Allergy/AdvReac Type Severity Reaction Status Date / Time lisinopril AdvReac Dry cough Verified 02/28/21 15:02 Family History Mother Breast cancer Surgical History History of coronary artery stent placement (~11/17/16) Social History Smoking Status: Former smoker ROS ROS Narrative Denies any abdominal pain nausea vomiting. Denies any lower extremity swelling. All other systems reviewed and essentially negative. Vital Signs Vital Signs Vital Signs: 02/28/21 14:52 02/28/21 14:57 02/28/21 14:58 Temperature 37.7 C H 37.7 C H Temperature Source Oral Oral Pulse Rate 82 82 Respiratory Rate 18 18 Respiratory Effort Short of Breath Respiratory Depth Normal Respiratory Pattern Tachypnea Blood Pressure 132/105 H 132/105 H Blood Pressure Mean 114 114 Pulse Ox 96 96 Oxygen Delivery Method Room Air Room Air Room Air 02/28/21 16:50 02/28/21 16:56 02/28/21 17:00 Temperature 36.6 C 36.6 C Temperature Source Oral Oral Pulse Rate 72 68 Respiratory Rate 19 H 19 H 18 Respiratory Effort Respiratory Depth Respiratory Pattern Blood Pressure 96/64 96/66 Blood Pressure Mean 74 76 Pulse Ox 95 94 Oxygen Delivery Method Room Air Room Air Weight Weight: 86.5 kg Body Mass Index (BMI) 25.8 Physical Exam Narrative General exam. Elderly man. Looks younger than his stated age. He is not in any overt distress. Not ill-appearing. HEENT examination. Oral mucosa is moist, head is normocephalic. Neck. Neck is supple. Heart. First and second heart sounds heard only with no murmurs. Lungs. Fine crackles in the left lung base. Abdomen. Flat, soft moves with respiration. Extremities. No lower extremity edema. PHYSICAL THERAPIST ASSISTANT. Conscious and alert. Oriented x3. Cranial nerves II through XII grossly intact. Power 5 out of 5 in all extremities. Gait was not tested. Admission is intact and speech is fluent. Results Lab / Micro Data Result Diagrams: 02/28/21 14:55 02/28/21 14:55 Labs: Laboratory Results - last 24 hr 02/28/21 14:55: WBC 4.2 L, RBC 4.67, Hgb 14.9, Hct 43.2, MCV 92.5, MCH 31.9, MCHC 34.5, RDW Std Deviation 45.9 H, RDW Coeff of Tiny 13.4, Plt Count 131 L, MPV 10.1, Immature Gran % (Auto) 0.200, Neut % (Auto) 73.0 H, Lymph % (Auto) 17.0 L, [place] % (Auto) 9.4, Eos % (Auto) 0.2, Baso % (Auto) 0.2, Absolute Neuts (auto) 3.0, Absolute Lymphs (auto) 0.71 L, Nucleated RBC % 0, Differential Comment SCANNED 02/28/21 14:55: Sodium 137, Potassium 2.9 L, Chloride 101, Carbon Dioxide 27.0, Anion Gap 9, BUN 21 H, Creatinine 1.08, Estim Creat Clear Calc 65.86, Est GFR (MDRD) Af Amer 86, Est GFR (MDRD) Non-Af 71, BUN/Creatinine Ratio 19.4, Glucose 151 H, Calcium 8.4 L, Troponin I High Sens 9.3 02/28/21 15:15: D-Dimer Quant (PE/DVT) 1.54 H* 02/28/21 15:15: Lactic Acid 2.9 H* Radiology Impression Chest X-Ray 02/28/21 15:43 IMPRESSION: . Findings consistent with Covid 19 pneumonia Electronically Signed: Mil Frey MD at 16:25 EDT , Service support , Chest CTA 02/28/21 16:25 IMPRESSION: Findings consistent with Covid 19 pneumonia. No evidence for pulmonary embolus Electronically Signed: Mil Frey MD at 16:52 EDT , Service support , Assessment & Plan Assessment/Plan (1) Pneumonia due to COVID-19 virus: PLAN: Patient is not hypoxic at rest or with activity. No clear indication for treatment with Remdesivir and Dexamethasone orders COVID-19 specific therapies. Patient reluctant to return home. We will consult infectious disease for further recommendations. Continue supportive and symptomatic treatment. Charges/Coding Visit Charges Inpatient E&M: 19890 Init Hosp L3
[2021-02-28 19:19] LABS: Reflex Lactate? Y
[2021-02-28] MEDS: Benzonatate 100 MG Capsule 200 MG PO (20:51)
[2021-02-28] MEDS: Metoprolol Tartrate 25 MG Tablet 12.5 MG PO (21:04)
[2021-02-28] MEDS: Atorvastatin Calcium 40 MG Tablet PO (21:04)
[2021-02-28] MEDS: Latanoprost 0.005% 1 Bottle 1 DRP EACH EYE (21:05)
[2021-02-28] MEDS: Acetaminophen 325 MG Tablet 650 MG PO (21:06)
[2021-03-01 00:04] LABS: Lactic Acid 1.7 mmol/L (0.4-1.9)
[2021-03-01 02:58] VITALS: BP 115/73; PULSE 62; RESP 18; TEMP 36.3; O2SAT 95
[2021-03-01] MEDS: Aspirin E.C. 81 MG Tablet PO (05:50)
[2021-03-01] MEDS: Benzonatate 100 MG Capsule 200 MG PO (05:50)
[2021-03-01 07:32] LABS: Absolute Lymphocyte Count 0.45 X10^3/uL (0.83-4.51); Absolute Neutrophil Count 2.9 X10^3/uL (2.0-7.7); Hemoglobin 14.4 g/dL (13.0-16.5); Lymphocyte # 0.45 X10^3/ul (0.83-4.51); Lymphocyte % 12.3 % (19-41); Mean Corp Hgb Conc 34.3 g/dL (32-36); Mean Corpuscular Hgb 31.9 pg (27.0-32.0); Mean Corpuscular Volume 92.9 fL (80-94); Mean Platelet Vol. 10.1 fl (6.2-12.0); Monocyte# 0.31 X10^3/uL; Monocyte% 8.5 % (0-10); NRBC Flagged by Analyzer 0 % (0-5); Neutrophil # 2.86 X10^3/uL (2.7-7.7); Neutrophil % 78.4 % (47-70); POSITIVE DIFFERENTIAL YES; POSITIVE MORPHOLOGY YES; Platelet Count 143 K/mm3 (150-450); RBC Distribution Width CV 13.4 % (11.6-14.6); RBC Distribution Width SD 46.4 fl (35.1-43.9); Red Blood Count 4.52 M/mm3 (4.6-6.2); White Blood Count 3.7 K/mm3 (4.4-11.0)
[2021-03-01 07:39] LABS: Differential Indicated SCAN CRITERIA MET
[2021-03-01 07:59] LABS: ALB/GLOB Ratio 0.8 RATIO (0.9-2.4); AST(SGOT) 75 U/L (15-37); Alanine Aminotransfer ALT/SGPT 44 U/L (16-61); Albumin, Serum 2.9 g/dL (3.2-5.0); Alkaline Phosphatase 82 U/L (45-117); Anion Gap 5 (5-15); BUN 22 mg/dL (7-18); BUN/Creat Ratio 22.7 RATIO (10-20); Calcium,Total 8.5 mg/dL (8.5-10.1); Chloride 104 mmol/L (98-107); Creatinine, Serum 0.97 mg/dL (0.70-1.30); EST Glomerular Filtration Rate 81 mL/min (>60); Est Glom Filt Rate - Afr Amer 97 mL/min (>60); Estimated Creatinine Clearance 71.16 ml/min; Globulin 3.7 g/dL (2.2-4.2); Glucose 149 mg/dL (74-106); Protein, Total 6.6 g/dL (6.4-8.2); Sodium Level 136 mmol/L (136-145)
[2021-03-01 08:00] VITALS: BP 129/79; PULSE 68; RESP 18; TEMP 36.6; O2SAT 98
[2021-03-01 08:18] LABS: Atypical Lymphocyte RARE %; Platelet Estimate ADEQUATE (ADEQ)
[2021-03-01 09:00] VITALS: RESP 20
[2021-03-01 09:10] VITALS: O2SAT 94
--- NOTE | 2021-03-01 10:12 | PCM.DC ---
Discharge Instructions Diet Discharge Diet: No restrictions Activity Discharge Activity: Return to Normal Activity and - (Quarantine from a total of 14 days from onset of symptoms) Follow Up Care Test Results: Test results from this visit will be discussed in further detail at your follow-up appointment, if applicable. Discharge Plan Admission Admit Date/Time: 02/28/21 18:13 Primary Reason for Your Visit: COVID-19 pneumonia Attending Provider: Chente Llanos Primary Care Provider: Jean-Pierre Wright Instructions Additional Instructions / Restrictions: Monitor your oxygen level periodically with a pulse oximeter (you can usually buy one in any drugstore)-if your readings are consistently at 88% or below, contact your physician or come to the emergency room for evaluation Call [phone] to register to get the monoclonal antibody drug for COVID-19, Dr. Kendell Church already left a message at this number today with your name and phone number so they probably will contact you on 03/03/2021, if you have not heard from them by 12 noon on that day, please call the number. You may take Robitussin-DM (or its equivalent) for cough in addition to your Benzonatate perles if needed You may return to the emergency room for evaluation if your overall condition worsens particularly your shortness of breath. Discharge Orders/Prescriptions Prescriptions: New benzonatate 100 mg Capsule 200 mg PO TID PRN PRN (Reason: Cough) Qty: 30 RF: 0 dexamethasone 2 mg tablet 6 mg PO DAILY Qty: 24 RF: 0 Continued metoprolol tartrate 25 mg tablet 12.5 mg PO BID Qty: 90 RF: 4 atorvastatin 40 mg tablet 40 mg PO QHS Qty: 90 RF: 4 aspirin 81 MG tablet 81 mg PO DAILY@0800 Qty: 30 RF: 11 latanoprost 0.005 % drops 1 drp EACH EYE QHS RF: 0 albuterol sulfate 90 mcg/actuation HFA aerosol inhaler 2 inh INHALATION Q4H PRN (Reason: SOB) RF: 0 clopidogrel [Plavix] 75 mg tablet 75 mg PO DAILY RF: 0 losartan 25 mg tablet 25 mg PO DAILY RF: 0 Discontinued azithromycin 250 mg tablet 250 mg PO DAILY RF: 0 Referrals / Follow Up: Jean-Pierre Wright MD [Primary Care Provider] - See Referral Note (After your quarantine is over) Disposition Disposition (needs filled in before D/C Order can be placed): Home, Self Care
[2021-03-01 10:47] VITALS: PULSE 85
[2021-03-01] MEDS: Metoprolol Tartrate 25 MG Tablet 12.5 MG PO (10:47)
[2021-03-01] MEDS: Losartan Potassium 25 MG Tablet PO (10:47)
[2021-03-01] MEDS: Enoxaparin 40 MG/0.4 ML Syringe SC (10:47)
[2021-03-01] MEDS: Clopidogrel Bisulfate 75 MG Tablet PO (10:48)
[2021-03-01] MEDS: dexAMETHasone 4 MG/ML Vial 6 MG IV (10:48)
--- NOTE | 2021-03-01 12:46 | PCM.DC.SUM ---
Providers Date of Admission: 02/28/21 Date of Discharge: 03/01/21 Primary Care Physician: Dr. Jean-Pierre Wright MD Reason For Visit: COVID 19 PNEUMONIA Diagnosis Discharge Diagnosis (1) Pneumonia due to COVID-19 virus: Status: Acute Code(s): U07.1 - COVID-19; J12.82 - Pneumonia due to coronavirus disease 2018 Plan: 1. COVID-19 pneumonia #2 atherosclerotic heart disease #3 hyperlipidemia #4 essential hypertension Medications at Discharge Home Medications aspirin 81 mg PO DAILY@0800 #30 tab 11/19/16 atorvastatin 40 mg tablet 40 mg PO QHS #90 tab 12/11/20 metoprolol tartrate 25 mg tablet 12.5 mg PO BID #90 tab 12/11/20 albuterol sulfate 2 inh INHALATION Q4H PRN 02/28/21 clopidogrel [Plavix] 75 mg PO DAILY 02/28/21 latanoprost 1 drp EACH EYE QHS 02/28/21 losartan 25 mg PO DAILY 02/28/21 benzonatate 200 mg PO TID PRN PRN #30 cap 03/01/21 dexamethasone 6 mg PO DAILY #24 tab 03/01/21 Hospital Course Operations None Procedures None Summary of Care Provided Minutes Spent on Discharge: 31 Hospital Course: 76-year-old white male was seen in the emergency room at [facility] with chief complaint of generalized weakness and shortness of breath, he had been diagnosed with a positive COVID-19 test 2 days prior, he has been taking care of his at home who has COVID-19. Work-up in the emergency room included a chest x-ray which showed bilateral infiltrates suggestive of COVID-19 infection, the patient however was not hypoxic on room air either at rest or when ambulating. Patient told the emergency room physician he did not feel comfortable going home and the patient was admitted to [place] [address] and monitored. Patient's pulse ox did not drop below 90% during his hospitalization, the following day on 03/01/2021, I had a discussion with the patient and he stated that he felt better, I told him that I had no treatment to offer him other than possible monoclonal antibody as an outpatient-he would have to get set up with this as an outpatient, I gave him the contact information to get set up to receive this and I also called the phone number to give the coordinating nurse the number to contact him on Wednesday. I advised the patient to get a pulse oximeter for use at home and if his breathing worsened and his pulse ox was 88 or below to contact his doctor or come to the ER. Patient appeared comfortable with this, I made the decision to send him home on dexamethasone although I am not sure this will be of any use to him. Patient thinks that he may have had Covid for approximately a week. On 03/01/2021, patient was seen and examined: On examination he appeared in good health and spirits. Vital signs as documented. Skin warm and dry and without overt rashes. Neck without JVD, neck was supple, trachea midline, thyroid was normal. Lungs clear bilaterally, normal air movement was noted. Heart exam notable for regular rhythm, normal sounds and absence of murmurs, rubs or gallops. Abdomen unremarkable and without evidence of organomegaly, masses, or abdominal aortic enlargement. Bowel sounds are present, abdomen is not distended. Extremities nonedematous, no cyanosis was noted, no clubbing was noted. Neuro: Cranial nerves II through XII are grossly intact, no focal motor deficits were noted, sensation to light touch and pinprick intact, motor exam 5/5 throughout. Psych: Patient is alert and oriented x3, he does not appear anxious or depressed, he does not appear agitated. Patient appears stable for discharge home, due to the fact he does have Covid 19 infection he is at high risk for returning to the hospital for readmission-patient understands this. Weight / BMI Weight Weight: 84.822 kg Body Mass Index (BMI) 26.0 ABG / Lab / Microbiology Data Result Diagrams: 03/01/21 07:10 03/01/21 07:10 Laboratory: Laboratory Results - last 24 hr 02/28/21 14:55: WBC 4.2 L, RBC 4.67, Hgb 14.9, Hct 43.2, MCV 92.5, MCH 31.9, MCHC 34.5, RDW Std Deviation 45.9 H, RDW Coeff of Tiny 13.4, Plt Count 131 L, MPV 10.1, Immature Gran % (Auto) 0.200, Neut % (Auto) 73.0 H, Lymph % (Auto) 17.0 L, [place] % (Auto) 9.4, Eos % (Auto) 0.2, Baso % (Auto) 0.2, Absolute Neuts (auto) 3.0, Absolute Lymphs (auto) 0.71 L, Nucleated RBC % 0, Differential Comment SCANNED 02/28/21 14:55: Sodium 137, Potassium 2.9 L, Chloride 101, Carbon Dioxide 27.0, Anion Gap 9, BUN 21 H, Creatinine 1.08, Estim Creat Clear Calc 65.86, Est GFR (MDRD) Af Amer 86, Est GFR (MDRD) Non-Af 71, BUN/Creatinine Ratio 19.4, Glucose 151 H, Calcium 8.4 L, Troponin I High Sens 9.3 02/28/21 15:15: D-Dimer Quant (PE/DVT) 1.54 H* 02/28/21 15:15: Lactic Acid 2.9 H* 02/28/21 23:30: Lactic Acid 1.7 03/01/21 07:10: WBC 3.7 L, RBC 4.52 L, Hgb 14.4, Hct 42.0, MCV 92.9, MCH 31.9, MCHC 34.3, RDW Std Deviation 46.4 H, RDW Coeff of Tiny 13.4, Plt Count 143 L, MPV 10.1, Immature Gran % (Auto) 0.800, Neut % (Auto) 78.4 H, Lymph % (Auto) 12.3 L, [place] % (Auto) 8.5, Eos % (Auto) 0.0, Baso % (Auto) 0.0, Absolute Neuts (auto) 2.9, Absolute Lymphs (auto) 0.45 L, Nucleated RBC % 0, Diff Path Review May foll, Atypical Lymphocytes RARE, Platelet Estimate ADEQUATE 03/01/21 07:10: Sodium 136, Potassium 4.0, Chloride 104, Carbon Dioxide 27.0, Anion Gap 5, BUN 22 H, Creatinine 0.97, Estim Creat Clear Calc 71.16, Est GFR (MDRD) Af Amer 97, Est GFR (MDRD) Non-Af 81, BUN/Creatinine Ratio 22.7 H, Glucose 149 H, Calcium 8.5, Total Bilirubin 1.50 H, AST 75 H, ALT 44, Alkaline Phosphatase 82, Total Protein 6.6, Albumin 2.9 L, Globulin 3.7, Albumin/Globulin Ratio 0.8 L Radiography Diagnostic Testing: Radiology Impression Chest X-Ray 02/28/21 15:43 IMPRESSION: . Findings consistent with Covid 19 pneumonia Electronically Signed: Mil Frey MD at 16:25 EDT , Service support , Chest CTA 02/28/21 16:25 IMPRESSION: Findings consistent with Covid 19 pneumonia. No evidence for pulmonary embolus Electronically Signed: Mil Frey MD at 16:52 EDT , Service support , D/C Instructions Discharge Diet: No restrictions Meaningful Use Info Meaningful Use Diagnoses (Choose all that apply): None applicable Discharge Plan Admission Admit Date/Time: 02/28/21 18:13 Primary Reason for Your Visit: COVID-19 pneumonia Attending Provider: Chente Llanos Primary Care Provider: Jean-Pierre Wright Instructions Additional Instructions / Restrictions: Monitor your oxygen level periodically with a pulse oximeter (you can usually buy one in any drugstore)-if your readings are consistently at 88% or below, contact your physician or come to the emergency room for evaluation Call [phone] to register to get the monoclonal antibody drug for COVID-19, Dr. Kendell Church already left a message at this number today with your name and phone number so they probably will contact you on 03/03/2021, if you have not heard from them by 12 noon on that day, please call the number. You may take Robitussin-DM (or its equivalent) for cough in addition to your Benzonatate perles if needed You may return to the emergency room for evaluation if your overall condition worsens particularly your shortness of breath. Discharge Orders/Prescriptions Prescriptions: New benzonatate 100 mg Capsule 200 mg PO TID PRN PRN (Reason: Cough) Qty: 30 RF: 0 dexamethasone 2 mg tablet 6 mg PO DAILY Qty: 24 RF: 0 Continued metoprolol tartrate 25 mg tablet 12.5 mg PO BID Qty: 90 RF: 4 atorvastatin 40 mg tablet 40 mg PO QHS Qty: 90 RF: 4 aspirin 81 MG tablet 81 mg PO DAILY@0800 Qty: 30 RF: 11 latanoprost 0.005 % drops 1 drp EACH EYE QHS RF: 0 albuterol sulfate 90 mcg/actuation HFA aerosol inhaler 2 inh INHALATION Q4H PRN (Reason: SOB) RF: 0 clopidogrel [Plavix] 75 mg tablet 75 mg PO DAILY RF: 0 losartan 25 mg tablet 25 mg PO DAILY RF: 0 Discontinued azithromycin 250 mg tablet 250 mg PO DAILY RF: 0 Referrals / Follow Up: Jean-Pierre Wright MD [Primary Care Provider] - See Referral Note (After your quarantine is over) Disposition Disposition (needs filled in before D/C Order can be placed): Home, Self Care Charges/Coding Visit Charges Inpatient E&M: 12904 Disch Hosp
[2021-03-01 13:20] VITALS: BP 119/81; PULSE 74; RESP 18; TEMP 36.6; O2SAT 94
--- NOTE | 2021-03-01 13:40 | CASEMGMT ---
COSME ANGELES attempted to see pt and pt was dc'd. TC to pt and reached pt by phone. Pt was already home. Assessment answered via tc. COSME ANGELES Assessment: COSME ANGELES introduced self and role at [facility], pt voices understanding and consents to assessment. Pt is O x4 and answers all questions appropriately at this time. Care providers, pharmacy, and demographics verified/updated. Admitting Dx:COVID 19 pna PCP: Kyle Specialists:Faisal cardio Preferred Pharmacy: [facility] Retail Insurance: [facility] Prescription Benefit: yes LW/HPOA: Pt states he has a LW/DPOA and his DPOA is his Magalis. Pt is aware it is not on file at [facility] and may bring it in to be scanned into the chart. LNOK: Magalis [place], Living Arrangements: Pt lives in a story and a half house with a couple of steps to enter with . Pt states he is I in ADL's and denies concerns at home. Transportation: Pt states he drives and denies concerns with transportation. He has not driven since he has been sick with COVID. DME/HHC/SNF: Pt has a pulse ox. Denies hx of HHC or SNF stay. Pt is on RA. Pt has family who are able to bring groceries and supplies and leave on the porch. Pt is also positive. He is aware of the need for quarantine. He states he was tested on Wednesday at 's office. He states no further concerns/needs.
[2021-03-03 14:43] LABS: Pathologist Review Reviewed
--- NOTE | 2021-03-03 14:58 | CASEMGMT ---
RN CM Discharge Follow Up Phone Call: [place]RI[place]: [place] Strata:2 Call Date: 03/03/21 Discharge Date: 03/01/21 Time of Call:1459 Duration:<1 min Admitting Dx: COVID 19 COSME ANGELES attempted to complete follow up phone call after recent hospitalization. Phone forwarded to unidentified voicemail. No message left.
== END 2021-03-01 13:07 | disposition home or self-care (01) | DRG 177 ==
LOC: ED 17:39 → MS3 20:10
PROVIDERS: Admitting Provider Internal Medicine; Emergency Provider Emergency Medicine; PCP Family Medicine; Visit Provider Internal Medicine
DX: U07.1 COVID-19 (principal); J12.82 Pneumonia due to coronavirus disease 2019; Z68.26 Body mass index [BMI] 26.0-26.9, adult; I25.10 Atherosclerotic heart disease of native coronary artery without angina pectoris; I25.2 Old myocardial infarction; Z95.5 Presence of coronary angioplasty implant and graft; Z79.02 Long term (current) use of antithrombotics/antiplatelets; Z79.82 Long term (current) use of aspirin; Z79.899 Other long term (current) drug therapy; Z87.891 Personal history of nicotine dependence
CPT/HCPCS: 36415; 71045; 71275; 80048; 80053; 83605; 84484; 85025; 85379; 87040; 87633; 87635; 93005; 97802; 99285; Q9967; U0005; A4216; U0003

== ENCOUNTER 2021-03-03 14:25 | Outpatient (CLI) | payer MEDICARE, SELFPAY ==
[2016-11-18 08:42] VITALS: BMI 29.2
[2021-03-03 08:40] VITALS: BMI 26.0
[2021-03-03 14:40] VITALS: BP 127/77; PULSE 63; RESP 18; TEMP 36.4; O2SAT 96; BMI 26.4
[2021-03-03] MEDS: 0.9% Saline Lock 10 ML Syringe IV (14:54)
[2021-03-03 15:08] VITALS: BP 129/79; PULSE 59; RESP 18; TEMP 36.3; O2SAT 96
[2021-03-03 15:35] VITALS: BP 129/79; PULSE 64; RESP 18; TEMP 36.6; O2SAT 95
[2021-03-03 16:05] VITALS: BP 113/76; PULSE 61; RESP 18; TEMP 36.7; O2SAT 94
[2021-03-03 16:40] VITALS: BP 113/85; PULSE 68; RESP 18; TEMP 36.7; O2SAT 95
== END 2021-03-03 16:42 | disposition home or self-care (01) ==
LOC: ICUOUT 14:25 → ICU 14:26
PROVIDERS: PCP Family Medicine; Referring Provider Nurse Practitioner Acute Care; Visit Provider Nurse Practitioner Acute Care
DX: U07.1 COVID-19 (principal); Z23 Encounter for immunization
CPT/HCPCS: J7050; M0243; A4216; Q0244

== ENCOUNTER 2021-03-05 14:24 | Emergency (ER) | payer MEDICARE, SELFPAY ==
[2016-11-18 08:42] VITALS: BMI 29.2
[2021-03-05 14:26] VITALS: BP 131/75; PULSE 67; RESP 19; TEMP 36.3; O2SAT 96; BMI 26.3
[2021-03-05 14:29] VITALS: BP 109/75; PULSE 64; RESP 16; TEMP 36.6; O2SAT 94
--- NOTE | 2021-03-05 14:36 | EKG12_ITS ---
Test Reason : CP Blood Pressure : / mmHG Vent. Rate : 068 BPM Atrial Rate : 068 BPM P-R Int : 146 ms QRS Dur : 086 ms QT Int : 422 ms P-R-T Axes : -17 -42 033 degrees QTc Int : 448 ms Normal sinus rhythm Left axis deviation T wave abnormality, consider anterior ischemia Abnormal ECG Confirmed by LEXIE DALE, ANGEL ([id number]), editor greeting card HEAVEN REECE ([id number]) on 03/07/2021 10:05:10 A M Referred By: NONA Confirmed By:JUNE OWEN MD
--- NOTE | 2021-03-05 14:47 | ED.VIS.DYS ---
HPI History of Present Illness Chief Complaint: Shortness of Breath Narrative Narrative: 76-year-old male with history of COVID-19 pneumonitis recently. Is hard to establish a true baseline but the patient was admitted on 02/27/2021 for symptomatic Covid. He states that he was sick for a couple of weeks prior to that. After reviewing the previous notes it does state that he was only symptomatic for 2 days prior to his last admission. Today he is presenting because his pulse ox went down to 90. He does not use home O2. He is already been treated with Decadron. He is not anticoagulated. He does not have any chest pain but states that his chest kind of tickles a little bit. Patient does note some dyspnea which has been present since his previous visit. He was more concerned that his pulse ox had gone down to 90. Patient does not have any fever, chills, sweats, nausea, vomiting, diarrhea. He states he is eating and drinking normally. He is making normal urine and stool. [facility] Medical History Atherosclerosis of coronary artery of [place] heart without angina pectoris Chest pain Coronary artery disease Coronary artery disease Former smoker Former smoker Hyperlipidemia Hypertension Hypertension Hypertension Myocardial infarct Myocardial infarct Old anterior myocardial infarction Syncope Home Medications aspirin 81 mg PO DAILY@0800 #30 tab 11/19/16 [Rx Last Taken 03/03/21] atorvastatin 40 mg tablet 40 mg PO QHS #90 tab 12/11/20 [Rx Last Taken 03/03/21] metoprolol tartrate 25 mg tablet 12.5 mg PO BID #90 tab 12/11/20 [Rx Last Taken 3 Days Ago ~02/25/21] albuterol sulfate 2 inh INHALATION Q4H PRN 02/28/21 [History Last Taken 03/03/21] clopidogrel [Plavix] 75 mg PO DAILY 02/28/21 [History Last Taken 03/03/21] latanoprost 1 drp EACH EYE QHS 02/28/21 [History Last Taken 03/02/21] losartan 25 mg PO DAILY 02/28/21 [History Last Taken 03/03/21] benzonatate 200 mg PO TID PRN PRN #30 cap 03/01/21 [Rx Last Taken 03/03/21] dexamethasone 6 mg PO DAILY #24 tab 03/01/21 [Rx Last Taken 03/03/21] Allergy/AdvReac Type Severity Reaction Status Date / Time lisinopril AdvReac Dry cough Verified 02/28/21 15:02 Family History Mother Breast cancer Surgical History History of appendectomy History of appendectomy History of coronary artery stent placement (~11/17/16) History of coronary artery stent placement Social History Smoking Status: Former smoker ROS ROS ED Constitutional Constitutional ED: Denies chills, fever(s) or sweats Eyes Eyes: Denies blurry vision or diplopia ENT ENT ED: Denies rhinorrhea or sore throat Cardiovascular Cardiovascular: Denies chest pain Respiratory/Chest Respiratory/Chest: Reports cough, dyspnea and dyspnea on exertion Gastrointestinal Gastrointestinal: Denies abdominal pain, constipation, diarrhea, nausea or vomiting Genitourinary Genitourinary ED: Denies dysuria or hematuria Musculoskeletal Musculoskeletal: Denies arthralgias, back pain, myalgias or neck pain Integumentary Denies Abrasions or rash Neurologic Neurologic: Denies headache(s) or paresthesias Psychiatric Psychiatric: Denies anxiety or depression EXAM Physical Exam Const Vital Signs: 03/05/21 14:26 03/05/21 14:29 03/05/21 14:39 Temperature 97.3 F L 97.8 F Temperature Source Oral Oral Pulse Rate 67 64 Respiratory Rate 19 H 16 Respiratory Effort Short of Breath Respiratory Depth Normal Respiratory Pattern Normal Blood Pressure 131/75 H 109/75 Blood Pressure Mean 93 86 Pulse Ox 96 94 Oxygen Delivery Method Room Air Room Air 03/05/21 16:30 03/05/21 16:32 Temperature Temperature Source Pulse Rate 64 Respiratory Rate 18 Respiratory Effort Respiratory Depth Respiratory Pattern Blood Pressure 121/64 H Blood Pressure Mean 83 Pulse Ox 94 94 Oxygen Delivery Method Room Air Room Air Positive well nourished General Appearance ED: NAD; Negative for pallor HEENT Reports moist mucous membranes atraumatic Eyes PERRL and EOMs intact bilaterally Resp normal respiratory effort Resp Narrative: Bibasilar crackles worse on the left. No wheezing or rhonchi. Cardio regular rate and regular rhythm GI non-tender and non-distended Auscultation: normoactive bowel sounds Palpation: soft Extremity normal to inspection General Extremety ED: Negative for edema or tenderness General Extremity: Negative for edema Neuro oriented x3, CN's II-XII intact bilaterally and no sensory deficits noted Sensorium / Orientation: alert Motor Exam: strength 5/5 throughout Psych mental status grossly normal Thought Process: normal thought process Skin General Skin Exam: Negative for jaundice or pallor Lesions: no lesions Rashes: no rashes MDM MDM MDM Narrative Medical decision making narrative: Patient presenting with an episode of hypoxia which he states his pulse ox was 90% on room air. He does not wear home O2. Patient has been in the 90s here. Even ambulating he stays 94%. EKG shows a sinus rhythm with a ventricular rate of 68 bpm on my interpretation. [facility] EKG performed 28 February 2021 shows improvement in leads V2 and V3 with still T wave inversions present but less prominent. Patient does have a history of T wave inversions in V4 through 6. Otherwise there are no significant interval changes. Chest x-ray on my interpretation shows right upper lobe infiltrate which does not appear to be changed. The radiologist does agree. Patient's blood work shows that his white blood cell count has increased but is only 8.9. Hemoglobin 14.4, hematocrit 41.6, platelets 298. High-sensitivity troponin is 5.9. Patient's bilirubin has actually improved. Patient's AST is slightly more elevated than previously. ALT is improved. Patient's creatinine is normal as well as his electrolytes. Patient had elevated D-dimer at 3.72 which is much more elevated than previously. I did obtain a CTA of the chest which does not identify any pulmonary emboli or dissection. This does show a stable examination without interval change as interpreted by the radiologist. Patient has had a fairly negative work-up here today. His pulse ox is normal. I feel he is safe to be discharged home. He is given return precautions. Impression: 1. History of COVID-19 pneumonitis Lab Data Attestation: I reviewed the patient's lab results. Labs: Laboratory Results - last 24 hr 03/05/21 03/05/21 03/05/21 15:33 15:33 15:33 WBC 8.9 RBC 4.57 L Hgb 14.4 Hct 41.6 MCV 91.0 MCH 31.5 MCHC 34.6 RDW Std Deviation 43.8 RDW Coeff of Tiny 13.2 Plt Count 298 MPV 9.0 Immature Gran % (Auto) 2.900 H Neut % (Auto) 81.3 H Lymph % (Auto) 3.9 L Gage % (Auto) 10.5 H Eos % (Auto) 0.8 Baso % (Auto) 0.6 Absolute Neuts (auto) 7.2 Absolute Lymphs (auto) 0.35 L Nucleated RBC % 0 Differential Comment Platelet Estimate ADEQUATE RBC Morphology NORM C+C D-Dimer Quant (PE/DVT) 3.72 H* Sodium 134 L Potassium 3.7 Chloride 102 Carbon Dioxide 25.0 Anion Gap 7 BUN 20 H Creatinine 0.90 Estim Creat Clear Calc 76.69 Est GFR (MDRD) Af Amer 106 Est GFR (MDRD) Non-Af 88 BUN/Creatinine Ratio 22.2 H Glucose 118 H Calcium 8.3 L Total Bilirubin 1.50 H Direct Bilirubin 0.42 H AST 72 H ALT 105 H Alkaline Phosphatase 92 Troponin I High Sens 5.9 Total Protein 6.6 Albumin 3.0 L Globulin 3.6 Radiography Diagnostic Testing: Radiology Impression Chest X-Ray 03/05/21 15:05 IMPRESSION: Persistent infiltrate in the lateral aspect of the right upper lobe abutting the right minor fissure. This has improved. Stable infiltrates in the left lung as described. Electronically Signed: Mj Gorman MD at 15:32 EDT , Service support , Chest CTA 03/05/21 16:[address]: [address] evidence of pulmonary embolism. 2. No change in bilateral subsegmental atelectasis or pneumonitis. Electronically Signed: Robi Gipson MD at 17:29 EDT Tel , Service support , Discharge Plan Triage Chief Complaint: Shortness of Breath ED Provider: Aditya Vera Dx/Rx/DC Orders Instructions: Coronavirus Disease 2019 (COVID-19): Caring for Yourself or Others Prescriptions: No Action metoprolol tartrate 25 mg tablet 12.5 mg PO BID Qty: 90 RF: 4 atorvastatin 40 mg tablet 40 mg PO QHS Qty: 90 RF: 4 aspirin 81 MG tablet 81 mg PO DAILY@0800 Qty: 30 RF: 11 latanoprost 0.005 % drops 1 drp EACH EYE QHS RF: 0 albuterol sulfate 90 mcg/actuation HFA aerosol inhaler 2 inh INHALATION Q4H PRN (Reason: SOB) RF: 0 clopidogrel [Plavix] 75 mg tablet 75 mg PO DAILY RF: 0 losartan 25 mg tablet 25 mg PO DAILY RF: 0 benzonatate 100 mg Capsule 200 mg PO TID PRN PRN (Reason: Cough) Qty: 30 RF: 0 dexamethasone 2 mg tablet 6 mg PO DAILY Qty: 24 RF: 0 Primary Care Provider: Jean-Pierre Wright Referrals: Jean-Pierre Wright MD [Primary Care Provider] - Disposition Disposition: Home, Self Care
--- NOTE | 2021-03-05 15:05 | RAD_ITS ---
STUDY: X-RAY CHEST REASON FOR EXAM: Male, 76 years old. Chest pain TECHNIQUE: Single AP portable view of the chest. COMPARISON: Comparison is made with prior study dated 02/28/2021. FINDINGS: EKG electrodes are seen. Residual pulmonary infiltrates in the lateral aspect of the right upper lobe abutting the right minor fissure. Persistent patchy infiltrates in the left lung. There is no demonstrated pleural abnormality. Normal size heart. Normal mediastinum and bakari. Normal visualized pulmonary arteries. There is atherosclerotic tortuosity of the aortic arch and descending thoracic aorta. There are diffuse degenerative changes of the visualized thoracic spine. There is degenerative osteoarthritis of the bilateral shoulders. There is no demonstrated abnormality of the visualized soft tissue structures of the upper abdomen. RAD/Chest 1 View (Portable) IMPRESSION: Persistent infiltrate in the lateral aspect of the right upper lobe abutting the right minor fissure. This has improved. Stable infiltrates in the left lung as described. Electronically Signed: Mj Gorman MD at 15:32 EDT , Service support ,
[2021-03-05 15:46] LABS: Absolute Lymphocyte Count 0.35 X10^3/uL (0.83-4.51); Absolute Neutrophil Count 7.2 X10^3/uL (2.0-7.7); Basophil# 0.05 X10^3/uL; Basophil% 0.6 % (0-1); Eosinophil# 0.07 X10^3/uL; Eosinophils% 0.8 % (0-5); Hematocrit 41.6 % (40-54); Hemoglobin 14.4 g/dL (13.0-16.5); Lymphocyte # 0.35 X10^3/ul (0.83-4.51); Lymphocyte % 3.9 % (19-41); Mean Corp Hgb Conc 34.6 g/dL (32-36); Mean Corpuscular Hgb 31.5 pg (27.0-32.0); Monocyte# 0.94 X10^3/uL; Monocyte% 10.5 % (0-10); NRBC Flagged by Analyzer 0 % (0-5); Neutrophil # 7.24 X10^3/uL (2.7-7.7); Neutrophil % 81.3 % (47-70); POSITIVE DIFFERENTIAL YES; Platelet Count 298 K/mm3 (150-450); RBC Distribution Width CV 13.2 % (11.6-14.6); RBC Distribution Width SD 43.8 fl (35.1-43.9); Red Blood Count 4.57 M/mm3 (4.6-6.2); White Blood Count 8.9 K/mm3 (4.4-11.0)
[2021-03-05 15:57] LABS: Differential Indicated SCAN CRITERIA MET
[2021-03-05 16:06] LABS: AST(SGOT) 72 U/L (15-37); Alanine Aminotransfer ALT/SGPT 105 U/L (16-61); Alkaline Phosphatase 92 U/L (45-117); Anion Gap 7 (5-15); BUN 20 mg/dL (7-18); BUN/Creat Ratio 22.2 RATIO (10-20); Bilirubin, Direct 0.42 mg/dL (0.00-0.30); Calcium,Total 8.3 mg/dL (8.5-10.1); Chloride 102 mmol/L (98-107); EST Glomerular Filtration Rate 88 mL/min (>60); Est Glom Filt Rate - Afr Amer 106 mL/min (>60); Estimated Creatinine Clearance 76.69 ml/min; Globulin 3.6 g/dL (2.2-4.2); Glucose 118 mg/dL (74-106); Potassium 3.7 mmol/L (3.5-5.1); Protein, Total 6.6 g/dL (6.4-8.2); Sodium Level 134 mmol/L (136-145); Troponin-I HS 5.9 pg/mL (3.0-78.5)
[2021-03-05 16:27] LABS: D-Dimer Quantitative (DVT/PE) 3.72 FEU/ug/m (0.27-0.49)
--- NOTE | 2021-03-05 16:28 | CT_ITS ---
STUDY: CTA CHEST REASON FOR EXAM: Male, 76 years old. shortness of breath RADIATION DOSAGE (If Supplied By Facility): CTDIvol = ( 14.33 ) mGy, DLP = ( 598.02 ) mGycm TECHNIQUE: The examination was performed with the intravenous administration of IV 100mL Isovue-370. Post-processing of the angiographic images was performed, with multiplanar reformation and 3D reconstruction. Individualized dose optimization techniques were used for this CT. COMPARISON: Chest x-ray earlier today, CT 02/28/2021 FINDINGS: Normal enhancement of the main pulmonary artery and right and left pulmonary arteries. Normal enhancement of the bilateral peripheral pulmonary arteries. There is no demonstrated pulmonary embolism. Normal thoracic aorta and visualized great vessels. There is no demonstrated aortic dissection. Normal heart and pericardium. Normal mediastinum. Normal hilar regions. Normal visualized trachea and bronchi. The lungs are well expanded. No change in the bilateral peripheral ground glass opacities consistent with subsegmental atelectasis or pneumonitis. Normal pleura. Normal chest wall structures. Normal osseous structures. Normal visualized upper abdomen. CT/CTA Chest W/WO Contrast IMPRESSION: 1. No CT evidence of pulmonary embolism. 2. No change in bilateral subsegmental atelectasis or pneumonitis. Electronically Signed: Robi Gipson MD at 17:29 EDT Tel , Service support ,
[2021-03-05 16:30] VITALS: BP 121/64; PULSE 64; RESP 18; O2SAT 94
[2021-03-05 16:32] VITALS: O2SAT 94
[2021-03-05 16:57] LABS: Platelet Estimate ADEQUATE (ADEQ); Red Cell Morphology NORM C+C NORMAL (NORM C&C)
[2021-03-05 18:09] VITALS: BP 124/84; PULSE 63; RESP 18; O2SAT 98
== END 2021-03-05 18:09 | disposition home or self-care (01) ==
PROVIDERS: Emergency Provider Student in an Organized Health Care Education/Training Program; PCP Family Medicine
DX: R09.02 Hypoxemia (principal); Z86.16 Personal history of COVID-19; E78.5 Hyperlipidemia, unspecified; I10 Essential (primary) hypertension; I25.2 Old myocardial infarction; I25.10 Atherosclerotic heart disease of native coronary artery without angina pectoris; Z95.5 Presence of coronary angioplasty implant and graft; Z79.82 Long term (current) use of aspirin; Z79.899 Other long term (current) drug therapy; Z87.891 Personal history of nicotine dependence
CPT/HCPCS: 71045; 71275; 80048; 80076; 84484; 85025; 85379; 93005; 99285; Q9967; A4216

== ENCOUNTER → 2021-04-10 08:42 | Outpatient (CLI) | payer MEDICARE, SELFPAY ==
[2016-11-18 08:42] VITALS: BMI 29.2
[2021-04-10 10:53] LABS: Cholesterol 124 mg/dL (200); High Density Lipoprotein 66 mg/dL; PSA,Total - Annual Screen 0.71 ng/mL (0.00-4.00); Triglycerides 64 mg/dL; Very Low Density Lipoprotein 13 mg/dL (5-40)
== END ==
PROVIDERS: PCP Family Medicine; Referring Provider Family Medicine; Visit Provider Family Medicine
DX: I25.10 Atherosclerotic heart disease of native coronary artery without angina pectoris (principal); Z12.5 Encounter for screening for malignant neoplasm of prostate
CPT/HCPCS: 36415; 80061; 84153; G0103

== ENCOUNTER → 2022-03-03 | Outpatient (CLI) | payer MEDICARE, SELFPAY ==
[2016-11-18 08:42] VITALS: BMI 29.2
[2022-03-03 12:04] LABS: AST(SGOT) 26 U/L (15-37); Alanine Aminotransfer ALT/SGPT 29 U/L (16-61); Albumin, Serum 3.7 g/dL (3.2-5.0); Alkaline Phosphatase 103 U/L (45-117); Bilirubin, Direct 0.32 mg/dL (0.00-0.30); Cholesterol 113 mg/dL (200); Globulin 3.1 g/dL (2.2-4.2); High Density Lipoprotein 56 mg/dL; Protein, Total 6.8 g/dL (6.4-8.2); Triglycerides 45 mg/dL; Very Low Density Lipoprotein 9 mg/dL (5-40)
== END | disposition home or self-care (01) ==
LOC: LAB 09:48
PROVIDERS: PCP Family Medicine; Referring Provider Nurse Practitioner Family; Visit Provider Nurse Practitioner Family
DX: E78.5 Hyperlipidemia, unspecified (principal)
CPT/HCPCS: 36415; 80061; 80076

== ENCOUNTER → 2022-03-31 | Outpatient (CLI) | payer MEDICARE, SELFPAY ==
[2016-11-18 08:42] VITALS: BMI 29.2
--- NOTE | 2022-03-31 10:45 | RAD_ITS ---
STUDY: X-RAY - LEFT KNEE REASON FOR EXAM: Left knee pain. TECHNIQUE: 3 view(s) of the knee. COMPARISON: None. FINDINGS: Normal visualized distal femur. Normal visualized proximal tibia and fibula. Normal proximal tibiofibular articulation. There is severe joint space loss of the medial femorotibial compartment. Normal lateral femorotibial compartment. There are very small marginal osteophytes and joint space narrowing of the patellofemoral articulation. There is a small joint effusion. RAD/Knee 3 Views IMPRESSION: Arthrosis of the medial femorotibial and patellofemoral compartments. Small joint effusion. Electronically Signed: Jake Arias MD at 13:37 EDT ,
[2022-03-31 12:53] LABS: ALB/GLOB Ratio 1.4 RATIO (0.9-2.4); AST(SGOT) 57 U/L (15-37); Alanine Aminotransfer ALT/SGPT 35 U/L (16-61); Albumin, Serum 3.8 g/dL (3.2-5.0); Alkaline Phosphatase 88 U/L (45-117); Anion Gap 7 (5-15); BUN 35 mg/dL (7-18); BUN/Creat Ratio 36.5 RATIO (10-20); Calcium,Total 9.5 mg/dL (8.5-10.1); Chloride 109 mmol/L (98-107); Creatinine, Serum 0.96 mg/dL (0.70-1.30); EST Glomerular Filtration Rate 81 mL/min (>60); Est Glom Filt Rate - Afr Amer 98 mL/min (>60); Globulin 2.8 g/dL (2.2-4.2); Glucose 93 mg/dL (74-106); PSA,Total - Annual Screen 0.74 ng/mL (0.00-4.00); Protein, Total 6.6 g/dL (6.4-8.2); Sodium Level 142 mmol/L (136-145)
== END | disposition home or self-care (01) ==
PROVIDERS: PCP Family Medicine; Referring Provider Family Medicine; Visit Provider Family Medicine
DX: M25.562 Pain in left knee (principal); Z12.5 Encounter for screening for malignant neoplasm of prostate
CPT/HCPCS: 36415; 73562; 80053; 84153; G0103

== ENCOUNTER → 2022-07-24 | Outpatient (CLI) | payer MEDICARE, SELFPAY ==
[2016-11-18 08:42] VITALS: BMI 29.2
--- NOTE | 2022-07-24 | CYSPIN_PTH ---
PATIENT: VALERIA EMERY LOC: [facility] U#:[id number] AGE/SX: 77/M ROOM: RE07/24/[address]: BONITA Rivers : 1945 BED: DIS: 07/24/2022 SPEC #: [id number] RECD: 07/28/22 08:59 STATUS: REY REIsaac #: [id number] KASIE: 07/24/22 00:[address]: Elaine Manning DEPT: CYTOLOGY RECD BY: Yvette Crews ENTERED: 07/28/22 08:59 SP TYPE: CYSPIN FL OTHR DR: Trista Middleton DO Tissues: Urine Procedures: Pap Stain (control) Special Stain Group II Cytospin Fluid HEADER OPERATION: Not noted PRE-OP DIAGNOSIS: Hematuria TISSUE SUBMITTED: Urine for cytology DIAGNOSIS CYTOLOGY Urine for cytology (cytospin): Negative for malignant cells. See comment. AM:ponce 07/28/2022 COMMENT Crystalline material is present. Clinical correlation is suggested. CYTOLOGY STUDY Slides are reviewed. CYTOLOGY GROSS Received is 50 ml of reddish-brown cloudy fluid labeled with the patient's name and and designated per the requisition as urine. Submitted for cytology preparation. / ponce 07/28/2022 TC:5 CPT: 58770
[2022-07-24 16:00] LABS: Cytology, Body Fluid / CSF SEE PATHOLOGY REPORT
[2022-07-24 17:40] LABS: Absolute Lymphocyte Count 1.54 X10^3/uL (0.83-4.51); Absolute Neutrophil Count 2.9 X10^3/uL (2.0-7.7); Basophil# 0.02 X10^3/uL; Basophil% 0.4 % (0-1); Eosinophil# 0.28 X10^3/uL; Eosinophils% 4.9 % (0-5); Hemoglobin 14.6 g/dL (13.0-16.5); Lymphocyte # 1.54 X10^3/ul (0.83-4.51); Lymphocyte % 27.2 % (19-41); Mean Corp Hgb Conc 33.2 g/dL (32-36); Mean Corpuscular Hgb 31.9 pg (27.0-32.0); Mean Corpuscular Volume 96.3 fL (80-94); Monocyte# 0.89 X10^3/uL; Monocyte% 15.7 % (0-10); NRBC Flagged by Analyzer 0 % (0-5); Neutrophil # 2.91 X10^3/uL (2.7-7.7); Neutrophil % 51.3 % (47-70); Platelet Count 196 K/mm3 (150-450); RBC Distribution Width CV 13.9 % (11.6-14.6); RBC Distribution Width SD 49.3 fl (35.1-43.9); Red Blood Count 4.57 M/mm3 (4.6-6.2); White Blood Count 5.7 K/mm3 (4.4-11.0)
[2022-07-24 18:04] LABS: ALB/GLOB Ratio 1.3 RATIO (0.9-2.4); AST(SGOT) 29 U/L (15-37); Alanine Aminotransfer ALT/SGPT 30 U/L (16-61); Albumin, Serum 3.8 g/dL (3.2-5.0); Alkaline Phosphatase 102 U/L (45-117); Anion Gap 3 (5-15); BUN 35 mg/dL (7-18); BUN/Creat Ratio 34.7 RATIO (10-20); Calcium,Total 9.5 mg/dL (8.5-10.1); Chloride 108 mmol/L (98-107); Creatinine, Serum 1.01 mg/dL (0.70-1.30); EST Glomerular Filtration Rate 76 mL/min (>60); Est Glom Filt Rate - Afr Amer 93 mL/min (>60); Glucose 99 mg/dL (74-106); Potassium 4.3 mmol/L (3.5-5.1); Protein, Total 6.8 g/dL (6.4-8.2); Sodium Level 141 mmol/L (136-145)
[2022-07-24 18:10] LABS: Color, Urine Brown (Yellow); Glucose, Dipstick Normal (Normal); Ketone-Dipstick 5 mg/dl (Negative); Leukocyte Esterase-Dipstick 100 /ul (Negative); Nitrite-Dipstick Negative (Negative); Occult Blood-Urine 250 /ul (Negative); Protein-Dipstick 100 mg/dl (Negative); Urine Bilirubin Dipstick Negative (Negative); Urine Clarity Cloudy (Clear); Urine Urobilinogen 4 mg/dl (Normal)
[2022-07-24 18:14] LABS: Erythrocyte Sedimentation Rate 11 mm/hr (0-20)
== END | disposition home or self-care (01) ==
LOC: MFPLAB 15:52
PROVIDERS: PCP Family Medicine; Visit Provider Nurse Practitioner Family
DX: R31.9 Hematuria, unspecified (principal)
CPT/HCPCS: 36415; 80053; 81002; 85025; 85652; 87086; 87088; 88108; 88313

== ENCOUNTER 2022-08-12 10:47 | Day surgery (SDC) | payer MEDICARE, SELFPAY ==
[2016-11-18 08:42] VITALS: BMI 29.2
[2022-08-12 11:19] VITALS: BP 122/78; PULSE 56; RESP 16; TEMP 37; O2SAT 98; BMI 25.7
[2022-08-12] MEDS: Lactated Ringers 1,000 ML 15 ML IV (11:38)
--- NOTE | 2022-08-12 12:30 | DCINST_ITS ---
Discharge Instructions Diet Discharge Diet: No restrictions Activity Discharge Activity: Return to Normal Activity Dressing / Incision Call your doctor if your incision/area has: Sudden Increased Bleeding Follow Up Care Please Follow Up With: Salvador Stearns MD When: appt in two weeks Test Results: Test results from this visit will be discussed in further detail at your follow- up appointment, if applicable. Discharge Plan Admission Primary Reason for Your Visit: Circumcision Attending Provider: Salvador Stearns Primary Care Provider: Trista Middleton Discharge Orders/Prescriptions Prescriptions: New oxycodone-acetaminophen [Endocet] 5-325 mg tablet 1 tab PO Q6H PRN (Reason: pain) 7 Days Qty: 14 0RF Continued cholecalciferol (vitamin D3) 125 mcg (5,000 unit) tablet 125 mcg PO DAILY ascorbic acid (vitamin C) 500 mg tablet 500 mg PO DAILY zinc sulfate 50 mg zinc (220 mg) capsule 50 mg PO DAILY Alive Men's 50 Plus Multivit 120 mcg-150 mcg -50 mg tablet,chewable 1 tab PO DAILY latanoprost 0.005 % drops 1 drp EACH EYE QHS metoprolol tartrate 25 mg tablet 12.5 mg PO BID Qty: 90 4RF losartan 25 mg tablet 25 mg PO DAILY Qty: 90 3RF atorvastatin 40 mg tablet 40 mg PO QHS Qty: 90 4RF Held aspirin 81 MG tablet 81 mg PO DAILY@0800 Qty: 30 11RF Hold Instructions: Resume on 08/19/22. clopidogrel [Plavix] 75 mg tablet 75 mg PO DAILY Qty: 90 3RF Hold Instructions: Resume on 08/19/22. Referrals / Follow Up: Salvador Stearns MD [Med Staff - Active Staff] - Trista Middleton DO [Primary Care Provider] - Disposition Disposition (needs filled in before D/C Order can be placed): Home, Self Care
--- NOTE | 2022-08-12 12:30 | PCM.HP.STD ---
HPI - General General Date of Service: 08/12/22 Chief Complaint: Phimosis HPI Narrative VALERIA EMERY, is a 77 M who presents for a circumcision because he has severe phimosis of the foreskin also has BPH with obstruction we will do a cystoscopy at the same time. [facility] Medical History (Updated 08/12/22 @ 12:[address] Salvador Stearns MD) Alcohol use Arthritis Atherosclerosis of coronary artery of [place] heart without angina pectoris Cardiology follow-up encounter Essential hypertension Former smoker High cholesterol History of echocardiogram History of rheumatic fever History of stress test Hyperlipidemia Hypertension Myocardial infarct Old anterior myocardial infarction Pneumonia due to 2019-nCoV Pneumonia due to COVID-19 virus Syncope Wears glasses Home Medications aspirin 81 mg tablet,delayed release 81 mg PO DAILY@0800 #30 tabs 11/19/16 [Rx Last Taken 03/03/21] latanoprost 0.005 % eye drops 1 drp EACH EYE QHS GLAUCOMA 02/28/21 [History Last Taken 03/02/21] metoprolol tartrate 25 mg tablet 12.5 mg PO BID #90 tabs 01/05/22 [Rx Last Taken Unknown] ascorbic acid (vitamin C) 500 mg tablet 500 mg PO DAILY 01/27/22 [History Last Taken Unknown] cholecalciferol (vitamin D3) 125 mcg (5,000 unit) tablet 125 mcg PO DAILY 01/27/22 [History Last Taken Unknown] [id number] 120 mcg-lutein 150 mcg-herb 50 mg chewable tablet (Alive Men's 50 Plus Multivitamin) 1 tab PO DAILY 01/27/22 [History Last Taken Unknown] zinc sulfate 50 mg zinc (220 mg) capsule 50 mg PO DAILY 01/27/22 [History Last Taken Unknown] clopidogrel 75 mg tablet (Plavix) 75 mg PO DAILY #90 tabs 02/03/22 [Rx Last Taken 08/02/22] losartan 25 mg tablet 25 mg PO DAILY #90 tabs 02/12/22 [Rx Last Taken Unknown] atorvastatin 40 mg tablet 40 mg PO QHS #90 tabs 03/05/22 [Rx Last Taken Unknown] oxycodone-acetaminophen 5 mg-325 mg tablet (Endocet) 1 tab PO Q6H PRN pain 7 days #14 tabs 08/12/22 [Rx Last Taken Unknown] Allergy/AdvReac Type Severity Reaction Status Date / Time lisinopril AdvReac Dry cough Verified 08/12/22 11:17 Family History Mother Breast cancer Surgical History (Updated 08/06/22 @ 15:52 by Melanie Zhou) History of appendectomy History of appendectomy History of coronary artery stent placement (~11/17/16) History of coronary artery stent placement History of esophagogastroduodenoscopy (EGD) Hx of colonoscopy Social History (Updated 01/27/22 @ 08:45 by Margoth Garner) Smoking Status: Former smoker how long ago did patient quit smokin alcohol intake: current alcohol intake frequency: 0-2 drinks per day Alcohol type: beer substance use type: does not use caffeine: Yes Type: coffee Number of servings: 1 Vital Signs Vital Signs Vital Signs: 08/12/22 11:19 08/12/22 11:19 Temperature 98.6 F Temperature Source Temporal Pulse Rate 56 L Respiratory Rate 16 Respiratory Pattern Normal Blood Pressure 122/78 H Blood Pressure Mean 92 Blood Pressure Source Monitor Blood Pressure Position Semi-Fowlers Blood Pressure Location Left Arm Pulse Ox 98 Oxygen Delivery Method Room Air Weight Weight: 86 kg Body Mass Index (BMI) 25.7
[2022-08-12] MEDS: Cefazolin 2 GM in 0.9% Normal Saline 100 ML IV (12:46)
--- NOTE | 2022-08-12 12:55 | FOR_PTH ---
PATIENT: VALERIA EMERY [place] [facility] [place][id number] AGE/SX: 77/M ROOM: RE08/12/[address]: Dr. Salvador Stearns MD : 1945 BED: DIS: 08/12/2022 SPEC #: [id number] RECD: 08/12/22 16:45 STATUS: REY REIsaac #: [id number] KASIE: 08/12/22 12:[address]: Salvador Stearns DEPT: SURGICAL PATHOLOGY RECD BY: Yvette Crews ENTERED: 08/13/22 11:52 SP TYPE: FORESKIN OTHR DR: Trista Middleton DO Tissues: Skin of foreskin, NOS Procedures: Surgery Specimen Level III HEADER OPERATION: Circumcision PRE-OP DIAGNOSIS: Severe phimosis of foreskin, BPH TISSUE SUBMITTED: Penile foreskin tissue MICROSCOPIC DIAGNOSIS Penile foreskin tissue: A piece of skin with hypokeratosis and chronic inflammation. SJ:ponce 08/14/2022 MICROSCOPIC DESCRIPTION Slides are reviewed. GROSS DESCRIPTION Received in fixative is one container labeled with the patient's name and designated penile foreskin tissue. The specimen consists of an irregular piece of huggins-brown wrinkled skin measuring 7 x 3.5 x 1 cm. No skin lesion is identified. Director Of Math sections are submitted in one cassette. / DEBORAH:ponce 08/13/2022 TC:3 CPT: 69698
[2022-08-12] MEDS: Bupivacaine Mpf 0.5% 30 ML VIAL (12:59)
[2022-08-12] MEDS: Lubricating Jelly 60 GM Tube 30 GM (12:59)
--- NOTE | 2022-08-12 13:27 | PCM.OPRPT ---
Report of Operation Date of Procedure: 08/12/22 Pre-Operative Diagnosis: Phimosis and BPH with obstruction Post-Operative Diagnosis: Same Surgery/Procedure Performed:: Circumcision and flexible cystoscopy Description of Surgical Findings:: Patient taken back to the operating room at a smooth duction of general anesthesia he was placed in dorsolithotomy position. The penis abductor reprepped and draped in usual fashion. Made a incision all the way around the foreskin and the tip of the foreskin was completely tight just a pinhole opening to the penis. After the incision was made I dissected circumferentially around the penis to excise the foreskin and then developed bivalve the foreskin and half and then dissected the foreskin off the penis the glans was nice and intact and healthy I then reattached the foreskin shaft to the glans circumferentially to complete the circumcision. The using a flexible cystoscope and went into the penis the entire length the urethra is normal the prostate was only slightly enlarged minimal obstruction in the bladder was clear of any tumors or stones or obstruction. Cystoscope was removed successful circumcision I think this is going to help with his urinary problems since his foreskin was so tight it was basically a pinhole that he was urinating through. The prostate is only slightly enlarged so I do not think any needs any prostate medications at this point. Fluffs and dressings were placed on the circumcision anesthetic was reversed and I will see him back in 2 weeks in the office for checkup Surgeon: Salvador Stearns Type of Anesthesia: General Drains: none Admit VTE Documentation VTE Present on Admission: No VTE Mechan Device Prophylaxis: SCD's VTE Pharm Prophylaxis ordered?: No
[2022-08-12 13:35] VITALS: BP 119/78; BP 122/78; PULSE 61; RESP 16; TEMP 36.3; O2SAT 98
[2022-08-12 13:45] VITALS: BP 121/75; BP 122/78; PULSE 62; RESP 16; O2SAT 97
[2022-08-12 14:00] VITALS: BP 113/75; BP 122/78; PULSE 55; RESP 16; O2SAT 97
[2022-08-12 14:15] VITALS: BP 122/78; BP 124/76; PULSE 61; RESP 16; TEMP 36.4; O2SAT 98
[2022-08-12 14:45] VITALS: BP 122/78
== END 2022-08-12 15:05 | disposition home or self-care (01) ==
LOC: SDC 10:53 → AC 10:53
PROVIDERS: PCP Family Medicine; Referring Provider Urology; Visit Provider Urology
PROC: (CPT 54161; principal; 2022-08-12 12:45)
PROC: 0TJB8ZZ Inspection of Bladder, Via Natural or Artificial Opening Endoscopic (ICD-10-PCS; CPT 52000; 2022-08-12 12:45)
DX: N47.1 Phimosis (principal); N40.1 Benign prostatic hyperplasia with lower urinary tract symptoms; N13.8 Other obstructive and reflux uropathy; R35.1 Nocturia; I25.10 Atherosclerotic heart disease of native coronary artery without angina pectoris; E78.00 Pure hypercholesterolemia, unspecified; I10 Essential (primary) hypertension; I25.2 Old myocardial infarction; Z95.5 Presence of coronary angioplasty implant and graft; Z79.02 Long term (current) use of antithrombotics/antiplatelets; Z79.82 Long term (current) use of aspirin; Z79.899 Other long term (current) drug therapy; Z86.16 Personal history of COVID-19; Z87.891 Personal history of nicotine dependence
CPT/HCPCS: 54161; 00920; 52000; 88304; J7120; J2405

== ENCOUNTER → 2023-08-16 | Outpatient (CLI) | payer MEDICARE, SELFPAY ==
[2016-11-18 08:42] VITALS: BMI 29.2
--- NOTE | 2023-08-16 14:58 | RAD_ITS ---
EXAM: XR CHEST, 2 VIEWS CLINICAL INDICATION: SOB TECHNIQUE: Frontal and lateral views of the chest. COMPARISON: 03/05/2021 FINDINGS: LUNGS AND PLEURAL SPACES: Unremarkable. No consolidation or edema. No pneumothorax. No effusion. HEART: Unremarkable. Cardiac silhouette not enlarged. MEDIASTINUM: Central airways and mediastinal contour are unremarkable. BONES/JOINTS: Degenerative changes of the spine. No acute fracture. SOFT TISSUES: Unremarkable. VASCULATURE: Tortuous thoracic aorta. RAD/Chest PA and Lateral IMPRESSION: No acute disease. Electronically Signed: Holden Blackmon MD at 0:44 EST ,
--- OUTSIDE RECORDS SUMMARY | 2023-08-16 15:33 | XMS RPT_ITS | CCD ---
Author Name Unknown Address [email or web address] [place] [address] Organization [facility] Care Team Providers Care Electrical And Instrument Technician Name Role Phone Fabiana Stacy Unavailable Unavailable COSME Peters, Rufina Mckeon Unavailable Unavailrosalva Goldberg MD, Ke Arambula Unavailable [phone] MANAV Horton, Lauren Mckeon Unavailable [phone] Uma Schwartz RN Unavailable Unavailable Fabiana Stacy Unavailable Unavailable Carteris, Casaumi Y Unavailable Unavailable Desiree Stacyi Unavailable Unavailable Fabiana Stacy Unavailable Unavailable Uma Schwartz RN Unavailable Unavailable Renetta, Harumi Y Unavailable Unavailable AKIN WALTERS DO Primary Care Physician [phone] MOLINA Attending Unavaila ble AKIN WALTERS DO Primary Care Unavailable Allergies Allergy Classification Reported Allergen(s) Allergy Type Date of Onset Reaction(s) Facility (10 sources) lisinopril drug allergy 12-01-2016 cough [facility] Work Phone: Medications Completed/Discontinued Medications Medication Drug Class(es) Dates Sig (Normalized) Sig (Original) aspirin 81 mg delayed release oral tablet (11 sources) Nonsteroidal Anti-inflammatory Drug Start: 11-24-2016 take 1 tablet by mouth once daily ASPIRIN EC 81 MG TBEC One tablet by mouth daily ASPIRIN [id number] Alonso Jackson atorvastatin 80 mg oral tablet (11 sources) HMG-CoA Reductase Inhibitor Start: 11-24-2016 take 1 tablet by mouth once daily ATORVASTATIN CALCIUM 80 MG TABS One tablet by mouth every night ATORVASTATIN CALCIUM [id number] Alonso Y Carteris clopidogrel 75 mg oral tablet (7 sources) P2Y12 Platelet Inhibitor Start: 12-22-2016 take 1 tablet by mouth once daily PLAVIX 75 MG TABS One tablet by mouth daily CLOPIDOGREL BISULFATE [id number] Fabiana Stacy Problems Active Problems Problem Classification Problem Date Documented Date Episodic/Chronic Acute myocardial infarction (11 sources) Acute myocardial infarction; Translations: [ST elevation (STEMI) myocardial infarction of unspecified site] Onset: 11-24-2016 11-24-2016 Chronic Coronary atherosclerosis and other heart disease (12 sources) Atherosclerotic heart disease of [place] coronary artery without angina pectoris; Translations: [Coronary atherosclerosis] Onset: 11-24-2016 11-24-2016 Chronic Disorders of lipid metabolism (11 sources) Hyperlipidemia; Translations: [Hyperlipidemia, unspecified] Onset: 11-24-2016 11-24-2016 Chronic Glaucoma (1 source) Glaucoma; Translations: [Unspecified glaucoma] Onset: 08-07-2022 Chronic Unclassified (7 sources) Placement of stent in coronary artery ; Translations: [Presence of coronary angioplasty implant and graft] Onset: 11-24-2016 11-24-2016 Past or Other Problems Problem Classification Problem Date Documented Da te Episodic/Chronic Other nutritional; endocrine; and metabolic disorders (9 sources) Body mass index (BMI) 27.0-27.9, adult; Translations: [Body mass index (BMI) 27.0-27.9, adult] Onset: 12-04-2016 12-04-2016 Episodic Results Test Name Value Interpretation Reference Range Facil ity Vital Signs Date Time Vital Sign Value Performing Clinician Faci lity 08-07-2022 09:51-0500 Diastolic Blood Pressure Non-Invasive [address] JESSE MARIA MD [facility] 08-07-2022 09:51-0500 Heart rate 61 /min DR JESSE MARIA MD [facility] 08-07-2022 09:51-0500 Respiratory rate 18 /min DR JESSE MARIA MD [facility] 08-07-2022 09:51-0500 Systolic Blood Pressure Non-Invasive [address] JESSE MARIA MD [facility] 08-07-2022 09:41-0500 Diastolic Blood Pressure Non-Invasive [address] JESSE MARIA MD [facility] 08-07-2022 09:41-0500 Heart rate 61 /min DR JESSE MARIA MD [facility] 08-07-2022 09:41-0500 Respiratory rate 16 /min DR JESSE MARIA MD [facility] 08-07-2022 09:41-0500 Systolic Blood Pressure Non-Invasive [address] JESSE MARIA MD [facility] 08-07-2022 09:31-0500 Diastolic Blood Pressure Non-Invasive [address] JESSE MARIA MD [facility] 08-07-2022 09:31-0500 Heart rate 61 /min DR JESSE MARIA MD [facility] 08-07-2022 09:31-0500 Respiratory rate 12 /min DR JESSE MARIA MD [facility] 08-07-2022 09:31-0500 Systolic Blood Pressure Non-Invasive [address] JESSE MARIA MD [facility] 08-07-2022 09:20-0500 Respiratory Rate - Anes 21 br/min DR JESSE MARIA MD [facility] 08-07-2022 09:15-0500 Respiratory Rate - Anes 27 br/min DR JESSE MARIA MD [facility] 08-07-2022 09:10-0500 Respiratory Rate - Anes 27 br/min DR JESSE MARIA MD [facility] 08-07-2022 07:59-0500 Body height 180.[address] JESSE MARIA MD [facility] 08-07-2022 07:59-0500 Body temperature 96.8 [degF] DR JESSE MARIA MD [facility] 08-07-2022 07:59-0500 Body weight 86.[address] JESSE MARIA MD [facility] 08-07-2022 07:59-0500 Heart rate 78 /min DR JESSE MARIA MD [facility] 04-01-2017 12:37-0400 BMI (Body Mass Index) 25.9 kg/m2 Fabiana Seaman [facility] Work Phone: 04-01-2017 12:37-0400 BP Diastolic 62 mm[Hg] Fabiana Stacy [facility] Work Phone: 04-01-2017 12:37-0400 BP Systolic 96 mm[Hg] Fabiana Del Valleby [facility] Work Phone: 04-01-2017 12:37-0400 Height 182.88 cm Fabiana Stacy [facility] Work Phone: 04-01-2017 12:37-0400 Pulse (Heart Rate) 58 /min Fabiana Stacy [facility] Work Phone: 04-01-2017 12:37-0400 Respiratory Rate 16 /min Fabiana Del Valleby [facility] Work Phone: 04-01-2017 12:37-0400 Weight 86.64 kg Fabiana Del Valleby [facility] Work Phone: 12-04-2016 14:04-0400 BMI (Body Mass Index) 27.01 kg/m2 Fabiana [facility] Work Phone: 12-04-2016 14:04-0400 Body weight 90.36 kg Casakendal Jackson [facility] Work Phone: 12-04-2016 14:04-0400 BP Diastolic 74 mm[Hg] Fabiana [facility] Work Phone: 12-04-2016 14:04-0400 BP Systolic 110 mm[Hg] Fabiana [facility] Work Phone: 12-04-2016 14:04-0400 Height 182.88 cm Fabiana [facility] Work Phone: 12-04-2016 14:04-0400 Pulse (Heart Rate) 60 /min Fabiana [facility] Work Phone: 12-04-2016 14:04-0400 Respiratory Rate 18 /min Fabiana [facility] Work Phone: 12-04-2016 14:04-0400 Weight 90.36 kg Fabiana [facility] Work Phone: Encounters Encounter Date Encounter Type Care Provider Facility Start: 08-07-2022 End: 08-07-[address] JESSE MARIA MD. Facility:B Start: 08-07-2022 End: 08-07-[address] JESSE MARIA MD [facility] Procedures Date Procedure Procedure Detail Performing Clinician Start: 04-01-2017 End: 04-01-2017 SUSAN Goldberg MD Work Phone: Start: 04-01-2017 End: 04-01-2017 Follow Up Appt 6 months Ke Goldberg MD Work Phone: Start: 12-04-2016 End: 12-04-2016 Documentation of current medications Alonso Renetta Start: 12-04-2016 End: 12-08-2016 *Hepatic Function Panel Lauren woodard PA-C Work Phone: Start: 12-04-2016 End: 12-04-2016 SUSAN Horton PA-C Work Phone: Start: 12-04-2016 End: 12-04-2016 Follow Up Appt 3 months Lauren woodard PA-C Work Phone: Start: 12-04-2016 End: 12-08-2016 Lipid panel [AGGREGATE] Lauren woodard PA-C Work Phone: Start: 12-04-2016 End: 02-08-2017 Referral to political theory professor Lauren lópez PA-C Work Phone: Start: 11-26-2016 End: 12-04-2016 Referral to political theory professor Ke Goldberg MD Work Phone: Start: 11-24-2016 Placement of stent i n coronary artery Status post cardiac stent placement Fabiana Stacy Start: 07-26-[address] Ayden MARIA MD Appendectomy DR JESSE PAL MD Tonsillectomy DR JESSE NARANJO MD Plan of Treatment Date Care Activity Detail Author Start: 10-04-2017 End: 10-04-2017 Appointment Appointment [facility] Work Phone: Start: 06-11-2017 End: 12-12-2016 *Hepatic Function Panel *Hepatic Function Panel [facility] Work Phone: Start: 06-11-2017 End: 12-12-2016 Lipid panel [AGGREGATE] *Lipid Profile CC PCP [facility] Work Phone: Start: 04-01-2017 End: 04-01-2017 Appointment Appointment [facility] Work Phone: Start: 04-01-2017 End: 04-01-2017 Appointment Appointment [facility] Work Phone: Start: 04-01-2017 End: 04-01-2017 SUSAN DAVIS [facility] Work Phone: Start: 04-01-2017 End: 04-01-2017 Follow Up Appt 6 months Follow Up Appt 6 months [facility] Work Phone: Start: 12-04-2016 End: 12-04-2016 Appointment Appointment [facility] Work Phone: Start: 12-04-2016 End: 12-04-2016 Appointment Appointment [facility] Work Phone: Start: 12-04-2016 End: 12-08-2016 *Hepatic Function Panel *Hepatic Function Panel [facility] Work Phone: Start: 12-04-2016 End: 01-04-2017 Cardiac Re[facility] [address] [place], [address] [facility] Work Phone: Start: 12-04-2016 End: 12-04-2016 DJN SUSAN [facility] Work Phone: Start: 12-04-2016 End: 12-04-2016 Follow Up Appt 3 months Follow Up Appt 3 months [facility] Work Phone: Start: 12-04-2016 End: 12-08-2016 Lipid panel [AGGREGATE] *Lipid Profile CC PCP [facility] Work Phone: Start: 11-26-2016 End: 12-04-2016 Cardiac Rehab [facility] [address] [place], [address] [facility] Work Phone: Patient Education [email or web address] [facility] Work Phone: Payers Date Payer Category Payer Unknown [id number] 1945 Unknown [id number] Social History Date Type Detail Facility Tobacco smoking status No Smoking Status Entered [facility] Sex Assigned At Male [facility] Functional Status Date Assessment Result Facility 08-07-2022 Functional Status Maintained [facility] 08-07-2022 Functional Status [facility] Mental Status Date Assessment Result Facility 08-07-2022 Mental Status Orientation Oriented x 4 [facility] 08-07-2022 Mental Status [facility] Evaluation + Plan note 08-07-2022 Note Date & Type Note Facility SALINE ADMISSION HISTORY AN D PHYSICIAL CHIEF COMPLAINT: HISTORY OF PRESENT ILLNESS: REVIEW OF SYSTEMS: ACTIVE PROBLEMS: (1) Hypertension ([id number]) MEDICATIONS: Active Inpt Meds: None Active PRN Meds: None One Time Meds: None Active IV Meds: Lactated Ringers Infusion 1,000 mL (LR 1,000 mL) Start: 08/07/22 8:02:00 EST, Rate: 50 mL/hr, 08/07/22 8:02:00 EST ALLERGIES: (1) NKA FAMILY HISTORY: SOCIAL HISTORY: PHYSICAL EXAM: VITALS: [id number](kg) 08/07 07:5936.0--[id number]/13 86.4 24 Hr Tmax: 36.0 at 08/07 07:59 36 Hr Tmax: 36.0 at 08/07 07:59 Vital Signs are the last 5 in the past 48 hours. Weights display the last 5 within 7 days. Initial Wt: 08/07 86.4 kg 190 lb Current Wt: 08/07 86.4 kg 190 lb GENERAL: HEENT: CARDIOVASCULAR: RESPIRATORY: ABDOMEN: EXREMETIES: NEUROLOGICAL: PSYCHIATRIC: LABS: No 36hr Lab Data DIAGNOSTICS: IMPRESSION: PLAN: History and Physical Update I have examined the patient; reviewed the H&P and there are no changes to the H&P unless noted below. [facility] Hospital Discharge instructions 08-07-2022 Note Date & Type Note Facility 08-07-2022 Hospital Discharg e instructions Patient Education 08/07/2022 09:36:47 Diverticulosis Diverticulosis Diverticulosis is a condition that develops when small pouches (diverticula) form in the wall of the large intestine (colon). The colon is where water is absorbed and stool is formed. The pouches form when the inside layer of the colon pushes through weak spots in the outer layers of the colon. You may have a few pouches or many of them. What are the causes? The cause of this condition is not known. What increases the risk? The following factors may make you more likely to develop this condition: Being older than age 60. Your risk for this condition increases with age. Diverticulosis is rare among people younger than age 30. By age 80, many people have it. Eating a low-fiber diet. Having frequent constipation. Being overweight. Not getting enough exercise. Smoking. Taking gilx-wej-gjddlkg pain medicines, like aspirin and ibuprofen. Having a family history of diverticulosis. What are the signs or symptoms? In most people, there are no symptoms of this condition. If you do have symptoms, they may include: Bloating. Cramps in the abdomen. Constipation or diarrhea. Pain in the lower left side of the abdomen. How is this diagnosed? This condition is most often diagnosed during an exam for other colon problems. Because diverticulosis usually has no symptoms, it often cannot be diagnosed independently. This condition may be diagnosed by: Using a flexible scope to examine the colon (colonoscopy). Taking an X-ray of the colon after dye has been put into the colon (barium enema). Doing a CT scan. How is this treated? You may not need treatment for this condition if you have never developed an infection related to diverticulosis. If you have had an infection before, treatment may include: Eating a high-fiber diet. This may include eating more fruits, vegetables, and grains. Taking a fiber supplement. Taking a live bacteria supplement (probiotic). Taking medicine to relax your colon. Taking antibiotic medicines. Follow these instructions at home: Drink 6 8 glasses of water or more each day to prevent constipation. Try not to strain when you have a bowel movement. If you have had an infection before: ?Eat more fiber as directed by your health care provider or your diet and ear nose and throat specialist (dietitian). ?Take a fiber supplement or probiotic, if your health care provider approves. Take sjmm-fmc-cyqpjbn and prescription medicines only as told by your health care provider. If you were prescribed an antibiotic, take it as told by your health care provider. Do not stop taking the antibiotic even if you start to feel better. Keep all follow-up visits as told by your health care provider. This is important. Contact a health care provider if: You have pain in your abdomen. You have bloating. You have cramps. You have not had a bowel movement in 3 days. Get help right away if: Your pain gets worse. Your bloating becomes very bad. You have a fever or chills, and your symptoms suddenly get worse. You vomit. You have bowel movements that are bloody or black. You have bleeding from your rectum. Summary Diverticulosis is a condition that develops when small pouches (diverticula) form in the wall of the large intestine (colon). You may have a few pouches or many of them. This condition is most often diagnosed during an exam for other colon problems. If you have had an infection related to diverticulosis, treatment may include increasing the fiber in your diet, taking supplements, or taking medicines. This information is not intended to replace advice given to you by your health care provider. Make sure you discuss any questions you have with your health care provider. Document Released: 04/08/2005 Document Revised: 06/24/2018 Document Reviewed: 05/31/2017 [employer] Patient Education 2020 [employer]. 08/07/2022 09:36:29 Colonoscopy, Adult, Care After, Axph-yc-Bemw Colonoscopy, Adult, Care After This sheet gives you information about how to care for yourself after your procedure. Your doctor may also give you more specific instructions. If you have problems or questions, call your doctor. What can I expect after the procedure? After the procedure, it is common to have: A small amount of blood in your poop for 24 hours. Some gas. Mild cramping or bloating in your belly. Follow these instructions at home: General instructions For the first 24 hours after the procedure: ?Do not drive or use machinery. ?Do not sign important documents. ?Do not drink alcohol. ?Do your daily activities more slowly than normal. ?Eat foods that are soft and easy to digest. Take rqzm-zfa-piekapr or prescription medicines only as told by your doctor. To help cramping and bloating: Try walking around. Put heat on your belly (abdomen) as told by your doctor. Use a heat source that your doctor recommends, such as a moist heat pack or a heating pad. ?Put a towel between your skin and the heat source. ?Leave the heat on for 20 30 minutes. ?Remove the heat if your skin turns bright red. This is especially important if you cannot feel pain, heat, or cold. You can get burned. Eating and drinking Drink enough fluid to keep your pee (urine) clear or pale yellow. Return to your normal diet as told by your doctor. Avoid heavy or fried foods that are hard to digest. Avoid drinking alcohol for as long as told by your doctor. Contact a doctor if: You have blood in your poop (stool) 2 3 days after the procedure. Get help right away if: You have more than a small amount of blood in your poop. You see large clumps of tissue (blood clots) in your poop. Your belly is swollen. You feel sick to your stomach (nauseous). You throw up (vomit). You have a fever. You have belly pain that gets worse, and medicine does not help your pain. Summary After the procedure, it is common to have a small amount of blood in your poop. You may also have mild cramping and bloating in your belly. For the first 24 hours after the procedure, do not drive or use machinery, do not sign important documents, and do not drink alcohol. Get help right away if you have a lot of blood in your poop, feel sick to your stomach, have a fever, or have more belly pain. This information is not intended to replace advice given to you by your health care provider. Make sure you discuss any questions you have with your health care provider. Document Released: 08/14/2011 Document Revised: 05/12/2018 Document Reviewed: 04/05/2017 [employer] Patient Education 2020 [employer]. Follow Up Care 06/17/2022 07:38:29 With:JESSE MARIA MD Address: [address] [place] [phone] When: Unknown Comments:Follow up as needed with PCP. [facility] Anesthesiology Consult note 08-07-2022 Note Date & Type Note Facility 08-07-2022 Anesthesiology Consult note Patient: VALERIA EMERY Age: 77 years Sex: Male : 1945 Associated Diagnoses: None Author: REGAN GUTIERREZ APRN-MARINE MECHANIC Assessment Postanesthesia assessment Vitals: Reviewed Results: Vital signs from flowsheet : Vital Signs(Date Range: 08/06/2022 0:00 EST - 08/07/2022 9:48 EST) . Mental status: at preoperative baseline, alert & oriented x 4. Respiratory function: lungs are clear to auscultation. Respiratory support: none. CV function: Normal rate. Cardiovascular support: none. Pain. Nausea status: denies nausea. Postoperative hydration status: within normal limits. Digitally Signed by REGAN GUTIERREZ on 08/07/2022 09:49 AM [facility] Summary of episode note 08-07-2022 Note Date & Type Note Facility 08-07-2022 Summary of episode note Discharge Instructions Thank you for allowing [facility] to assist you with your healthcare needs. The following is important discharge information regarding your hospital visit. Your Care Team AKIN WALTERS DO Your Diagnosis Clogged artery (heart) Glaucoma What to do next Follow Up Appointments Follow Up with JESSE MARIA MD When Why: Follow up as needed with PCP. Where: [address] [place] [address] [phone] The Following Activity and Diet Have Been Ordered for You No qualifying data available. No qualifying data available. The Following Equipment Has Been Ordered for You No qualifying data available. The Following Treatments Have Been Ordered for You Discharge Labs No qualifying data available. Discharge Radiology No qualifying data available. Other Therapies No qualifying data available. Post Acute Orders No qualifying data available. Someone Will Contact You Regarding These Home Health Referrals No home referrals have been ordered for you. No one will call you. Allergies NKA Medications Please ask your primary doctor or pharmacist before taking any other medication not listed, including over the counter drugs, herbal medications, vitamins and or supplements as they may interact with your home medications. Please take this list to your next doctor s visit. Bring all medications you take, including over the counter medications, herbals and other supplements with you to your doctor s visit. Patients and families are reminded to discard old lists and to update any records with all medication providers or retail pharmacies. Education Materials Diverticulosis Diverticulosis is a condition that develops when small pouches (diverticula) form in the wall of the large intestine (colon). The colon is where water is absorbed and stool is formed. The pouches form when the inside layer of the colon pushes through weak spots in the outer layers of the colon. You may have a few pouches or many of them. What are the causes? The cause of this condition is not known. What increases the risk? The following factors may make you more likely to develop this condition: Being older than age 60. Your risk for this condition increases with age. Diverticulosis is rare among people younger than age 30. By age 80, many people have it. Eating a low-fiber diet. Having frequent constipation. Being overweight. Not getting enough exercise. Smoking. Taking pzkt-dvn-fzqewzz pain medicines, like aspirin and ibuprofen. Having a family history of diverticulosis. What are the signs or symptoms? In most people, there are no symptoms of this condition. If you do have symptoms, they may include: Bloating. Cramps in the abdomen. Constipation or diarrhea. Pain in the lower left side of the abdomen. How is this diagnosed? This condition is most often diagnosed during an exam for other colon problems. Because diverticulosis usually has no symptoms, it often cannot be diagnosed independently. This condition may be diagnosed by: Using a flexible scope to examine the colon (colonoscopy). Taking an X-ray of the colon after dye has been put into the colon (barium enema). Doing a CT scan. How is this treated? You may not need treatment for this condition if you have never developed an infection related to diverticulosis. If you have had an infection before, treatment may include: Eating a high-fiber diet. This may include eating more fruits, vegetables, and grains. Taking a fiber supplement. Taking a live bacteria supplement (probiotic). Taking medicine to relax your colon. Taking antibiotic medicines. Follow these instructions at home: Drink 6 8 glasses of water or more each day to prevent constipation. Try not to strain when you have a bowel movement. If you have had an infection before: ? Eat more fiber as directed by your health care provider or your diet and ear nose and throat specialist (dietitian). ? Take a fiber supplement or probiotic, if your health care provider approves. Take rtkk-fno-nlgpyeq and prescription medicines only as told by your health care provider. If you were prescribed an antibiotic, take it as told by your health care provider. Do not stop taking the antibiotic even if you start to feel better. Keep all follow-up visits as told by your health care provider. This is important. Contact a health care provider if: You have pain in your abdomen. You have bloating. You have cramps. You have not had a bowel movement in 3 days. Get help right away if: Your pain gets worse. Your bloating becomes very bad. You have a fever or chills, and your symptoms suddenly get worse. You vomit. You have bowel movements that are bloody or black. You have bleeding from your rectum. Summary Diverticulosis is a condition that develops when small pouches (diverticula) form in the wall of the large intestine (colon). You may have a few pouches or many of them. This condition is most often diagnosed during an exam for other colon problems. If you have had an infection related to diverticulosis, treatment may include increasing the fiber in your diet, taking supplements, or taking medicines. This information is not intended to replace advice given to you by your health care provider. Make sure you discuss any questions you have with your health care provider. Document Released: 04/08/2005 Document Revised: 06/24/2018 Document Reviewed: 05/31/2017 Whois Patient Education 2020 [employer]. Colonoscopy, Adult, Care After This sheet gives you information about how to care for yourself after your procedure. Your doctor may also give you more specific instructions. If you have problems or questions, call your doctor. What can I expect after the procedure? After the procedure, it is common to have: A small amount of blood in your poop for 24 hours. Some gas. Mild cramping or bloating in your belly. Follow these instructions at home: General instructions For the first 24 hours after the procedure: ? Do not drive or use machinery. ? Do not sign important documents. ? Do not drink alcohol. ? Do your daily activities more slowly than normal. ? Eat foods that are soft and easy to digest. Take qsso-qyf-wezdhcu or prescription medicines only as told by your doctor. To help cramping and bloating: Try walking around. Put heat on your belly (abdomen) as told by your doctor. Use a heat source that your doctor recommends, such as a moist heat pack or a heating pad. ? Put a towel between your skin and the heat source. ? Leave the heat on for 20 30 minutes. ? Remove the heat if your skin turns bright red. This is especially important if you cannot feel pain, heat, or cold. You can get burned. Eating and drinking Drink enough fluid to keep your pee (urine) clear or pale yellow. Return to your normal diet as told by your doctor. Avoid heavy or fried foods that are hard to digest. Avoid drinking alcohol for as long as told by your doctor. Contact a doctor if: You have blood in your poop (stool) 2 3 days after the procedure. Get help right away if: You have more than a small amount of blood in your poop. You see large clumps of tissue (blood clots) in your poop. Your belly is swollen. You feel sick to your stomach (nauseous). You throw up (vomit). You have a fever. You have belly pain that gets worse, and medicine does not help your pain. Summary After the procedure, it is common to have a small amount of blood in your poop. You may also have mild cramping and bloating in your belly. For the first 24 hours after the procedure, do not drive or use machinery, do not sign important documents, and do not drink alcohol. Get help right away if you have a lot of blood in your poop, feel sick to your stomach, have a fever, or have more belly pain. This information is not intended to replace advice given to you by your health care provider. Make sure you discuss any questions you have with your health care provider. Document Released: 08/14/2011 Document Revised: 05/12/2018 Document Reviewed: 04/05/2017 Whois Patient Education 2020 [employer]. Additional Information VACCINATE! IT SAVES LIVES! Members of the community who have not yet received the COVID-19 vaccine and would like to receive it can visit one of [facility] vaccine clinics. There are many vaccine clinic locations within the [facility]. For locations and available times, please visit [email or web address] It is important to note that some COVID mobile vaccine clinics are held outdoors and may be canceled in rainy or stormy conditions. To learn more about pediatric vaccinations (ages 5-11), we invite you to visit the [facility] webpage. [email or web address] To learn more about the COVID-19 vaccine, we invite you to visit the [facility] website for a list of frequently asked questions. [email or web address] ently_[email or web address].pdf [facility] Patient Portal Access Instructions: Stay connected with your healthcare team and access your personal medical information anytime with the [facility] Patient Portal.If you would like a full copy of your medical records, please contact the [facility] Medical Records Department, Wednesday through Wednesday between 8a.m. and 4:30p.m. Please follow the directions below to access the portal: 1.Access the email account you provided upon registration to the [facility].2.Look for an invitation email from [facility].3.Open the email and access the invitation link: Accept Invitation to [facility]4.Fill in the required gavin to create your account. Sign into www.[employer] with your username and password that you created in the above steps to stay up to date. You can then view a summary of results, a summary of your visits, and the ability to download your summaries to your computer or send the information securely to a physician. Remember that your healthcare information is confidential, so carefully consider who you will allow to register on the [facility] Patient Portal for access to your information. You can also access the [facility] Patient Portal on the [employer] danny. Simply click on Health Records under Health Data and then click on the [employer] logo. HOW TO SAFELY DISPOSE OF PRESCRIPTION MEDICATIONS Please use one of the following methods to safely dispose of your unused medications. 1.Use a drug disposal kit: the drug disposal pouch allows you to safely discard your old and unused drugs. Ask your nurse to give you one when you are discharged.2.Visit a local take-back location: Many local pharmacies and police departments have programs that collect old and unwanted prescription drugs. Call your local pharmacy or go to http://bit.ly/2I4Nh9s to find one close to you.3.Make use of household items: Use cat litter or old coffee grounds to dispose medications if other options are not available. Mix your drugs with these household products, seal them in an airtight container and throw it into the garbage. Call [facility]: [phone] to be sure your drugs can be disposed of in this way. Some medicines may require a different approach.4.Never flush your medications down the toilet. IF YOU HAVE BEEN PRESCRIBED AN OPIOID FOR PAIN If you have been prescribed an opioid (such as hydrocodone, oxycodone or morphine), it is critical to understand the possible side effects and risks of opioid pain medications. Even when taken as directed, opioids can have several side effects including: Tolerance, meaning you might need to take more of a medication for the same pain relief. Nausea, vomiting and/or constipation. Sleepiness, dizziness, dry mouth, confusion, depression or itching. Physical dependence, meaning you have withdrawal symptoms when a medication is stopped, can develop within a few days. KNOW YOUR RESPONSIBILITIES It is important to know exactly how much and how often to take the opioid pain medications you are prescribed. Never take opioids in higher amounts or more often than prescribed. Do not combine opioids with alcohol or other drugs that cause drowsiness, such as benzodiazepines, also known as benzos, including diazepam and alprazolam, muscle relaxants or sleep aids. Never sell or share prescription opioids. This is illegal. Store opioids in a secure place and out of reach of others (including children, family, friends and visitors). The last page of this document has been signed and retained as a CHART COPY. Signatures Patient Education Materials Diverticulosis Colonoscopy, Adult, Care After, Efhn-gj-Hahe Medication Leaflets My discharge plan and instructions have been reviewed and explained to me and I,VALERIA EMERY understand my current condition and have read and understand these discharge instructions. I have received a written copy of the plan/instructions. If I have questions, I am aware that I should contact my doctor. Patient/Literary Writer Signature: Date/Time: Relationship to Patient: ___ Witness Name/Signature: Date/Time: [facility] Clinical Note 08-07-2022 Note Date & Type Note Facility 08-07-2022 Note SALINE ADMISSION HISTORY AND PHYSICIAL CHIEF COMPLAINT: HISTORY OF PRESENT ILLNESS: REVIEW OF SYSTEMS: ACTIVE PROBLEMS: (1) Hypertension ([id number]) MEDICATIONS: Active Inpt Meds: None Active PRN Meds: None One Time Meds: None Active IV Meds: Lactated Ringers Infusion 1,000 mL (LR 1,000 mL) Start: 08/07/22 8:02:00 EST, Rate: 50 mL/hr, 08/07/22 8:02:00 EST ALLERGIES: (1) NKA FAMILY HISTORY: SOCIAL HISTORY: PHYSICAL EXAM: VITALS: [id number](k g) 08/07 07:5936.0--[id number]/13 86.4 24 Hr Tmax: 36.0 at 08/07 07:59 36 Hr Tmax: 36.0 at 08/07 07:59 Vital Signs are the last 5 in the past 48 hours. Weights display the last 5 within 7 days. Initial Wt: 08/07 86.4 kg 190 lb Current Wt: 08/07 86.4 kg 190 lb GENERAL: HEENT: CARDIOVASCULAR: RESPIRATORY: ABDOMEN: EXREMETIES: NEUROLOGICAL: PSYCHIATRIC: LABS: No 36hr Lab Data DIAGNOSTICS: IMPRESSION: PLAN: History and Physical Update I have examined the patient; reviewed the H&P and there are no changes to the H&P unless noted below. Digitally Signed by JESSE MARIA MD on 08/07/2022 08:55 AM [facility] Anesthesiology Consult note 08-07-2022 Note Date & Type Note Facility 08-07-2022 Anesthesiology Consult note Patient: VALERIA EMERY Age: 77 years Sex: Male : 1945 Associated Diagnoses: None Author: REGAN GUTIERREZ Preoperative Information Time of last food or liquid consumption: 08/07/2022 05:00:00 Anesthesia history Patient's history: negative. Family's history: negative. Health Status Allergies: Allergic Reactions (Selected) NKA, Allergies (1) ActiveReaction NKANone Documented Current medications: (Selected) Inpatient Medications Ordered LR 1,000 mL: 50 mL/hr, Intravenous, Medications (1) Active Scheduled: (0) Continuous: (1) Lactated Ringers Infusion 1,000 mL 1,000 mL, Intravenous, 50 mL/hr PRN: (0) Problem list: Active Problems (1) Hypertension Histories Past Medical History: No active or resolved past medical history items have been selected or recorded., HTN, CAD stent placed 2017, [place] Family History: COPD - Chronic obstructive pulmonary disease Father Breast cancer Mother Alzheimer disease Mother Procedure history: Stent placement ([id number]) in 2017 at 72 Years. Tonsillectomy ([id number]). Appendectomy ([id number]). Social History Social & Psychosocial Habits No Data Available . Physical Examination No qualifying data available Measurements from flowsheet : Measurements 08/07/2022 7:59 EST Height 180.3 cm Admission Weight 86.4 kg Weight Method Stated [place] Body Weight 75.26 kg General: Alert and oriented. Airway: Normal temporomandibular joint mobility. Mallampati classification: II (soft palate, fauces, uvula visible). Head: Normocephalic. Dentition Evaluation: Intact, Chipped teeth. Neck: Supple. Respiratory: Lungs are clear to auscultation. Cardiovascular: Normal rate. Heart Sounds: Normal. Gastrointestinal: Soft. Musculoskeletal Normal range of motion. Integumentary: Intact. Neurologic: Alert. Review / Management Results review: No qualifying data available , Lab results 08/07/2022 7:59 EST Designated Person #1 We May Share EMILY SMITH [phone] Designated Person #1 Relationship Spouse Privacy Restrictions Requested None Height 180.3 cm Admission Weight 86.4 kg Weight Method Stated [place] Body Weight 75.26 kg Status N/A Sensory Deficits None Sleep Apnea Snore No Sleep Apnea Tired No Sleep Apnea Obstruction No Sleep Apnea Pressure Yes Sleep Apnea BMI No Sleep Apnea Age Yes Sleep Apnea Neck No Sleep Apnea Gender Yes Sleep Apnea Score 3 High Risk for Sleep Apnea No Diagnosed With Sleep Apnea No Advanced Directives Yes Advance Directive Type [place] Declaration (Living Will) Advance Directive Location Patient instructed to bring in copy Infectious Disease Symptoms Patient states no symptoms Infectious Disease Recent Exposure No Alcohol and Drug Use No Employee of Institutional Living No Health Care Employee No History of Exposure to TB No History of Positive Chest X-Ray for TB No History of Positive TB Skin Test No Homeless No Known Immunosuppression No Recent Immigrant No Resident of Institutional Living No Bloody Sputum No Fatigue No Fever No Loss of Appetite No Night Sweats No Persistent Cough > 3 Weeks No Weight Loss No Safety Brochure Information Reviewed Unable to complete [facility] Video Viewed No Barriers to Learning None evident Teaching Method Explanation Teaching Evaluation No further teaching needed Preferred Written Language Ghanaian Preferred Spoken Language Ghanaian Information Given by Patient Patient's Current Physicians dr. WALTERS ([place]) Discharge To, Anticipated Home with family care Prev Test Positive/Diagnosis w/COVID-19 Yes Previous COVID-19 Positive Date 2019 Current Quarantine/Isolated any Illness No Any Contact with Sick Animals/Birds No Traveled Anywhere in Last 30 Days No Lost Weight Unintentionally Recently No Eat Poorly Due to Decreased Appetite No Total MST Score 0 N/A Personal Devices, Patient Valuables Glasses Anesthesia/Transfusions Prior anesthesia Admission Note-Nursing Same Day Patient History . Assessment and Plan [place] [employer] Anesthesiologists (ASA) physical status classification: Class III. Anesthetic Preoperative Plan Premedication: None. Anesthetic technique: MAC. Induction: intravenously. Postoperative pain management: Per surgeon. Risks discussed: nausea, vomiting, headache, sore throat, dental injury, hypotension, allergic reaction, serious complications. Informed consent: signed by patient. Digitally Signed by REGAN GUTIERREZ on 08/07/2022 08:07 AM [facility] course Narrative Note Date & Type Note Facility Hospital course Narrative No data available for this section [facility] Summary Purpose Family History No Family History Records Found Advance Directives No Advanced Directives Records Found Additional Source Comments Care Team (unrecognized sect ion and content) Care Team Personnel Name: AKIN WALTERS DO Member Role: Primary Care Physician Address: Address: [address] [place] [address]- Care Team Related Persons Name: SARAH EMERY Address: Home [address] [id number] (unrecognized sect ion and content) No Status Records Found INFORMATION SOURCE (unrecogn ized section and content) FOR RECORDS PERTAINING TO PATIENTS WHO ARE OR HAVE BEEN ENROLLED IN A CHEMICAL DEPENDENCY/SUBSTANCEABUSE PROGRAM, SOME INFORMATION MAY BE OMITTED. This clinical summary was aggregated from multiple sources. Caution should be exercised in using it in the provision of clinical care. This summary normalizes information from multiple sources, and as a consequence, information in this document may materially change the coding, format and clinical context of patient data. In addition, data may be omitted in some cases. CLINICAL DECISIONS SHOULD BE BASED ON THE PRIMARY CLINICAL RECORDS. [facility]. provides no warranty or guarantee of the accuracy or completeness of information in this document.
== END | disposition home or self-care (01) ==
PROVIDERS: PCP Family Medicine; Referring Provider Family Medicine; Visit Provider Family Medicine
DX: R06.02 Shortness of breath (principal)
CPT/HCPCS: 71046

== ENCOUNTER → 2024-04-11 | Outpatient (CLI) | payer MEDICARE, SELFPAY ==
[2016-11-18 08:42] VITALS: BMI 29.2
--- NOTE | 2024-04-11 11:39 | STRESSREP_ITS ---
Stress Test Report Date: 04/11/2024 Procedure: Pharmacologic stress nuclear imaging study Indications: Coronary artery disease Consent: Per the patient Procedure: The patient underwent pharmacologic (Regadenoson 0.4mg ) evaluation with a peak heart rate of 91 beats per minute (63%predicted maximal heart rate) and a peak blood pressure of 126/76 mmHg. The baseline ECG demonstrated sinus rhythm. The peak pharmacologic ECG demonstrated no ischemic changes. There were no cardiac dysrhythmias pretest, during pharmacologic infusion, or recovery. There was no complaint of chest discomfort during pharmacologic infusion or recovery. The patient was injected with 12.0 millicuries of technetium 99m Cardiolite and subsequently rest SPECT Cardiolite nuclear imaging was obtained in the horizontal long, vertical long, and short axis views. The patient underwent pharmacologic (Regadenoson) evaluation. The patient was injected with 34.5 millicuries of technetium 99m Cardiolite and subsequently stress SPECT Cardiolite nuclear imaging was obtained in the horizontal long, vertical long, and short axis views. A gated Cardiolite study at peak stress was obtained. The examination was stopped secondary to completion of protocol. Rest and stress SPECT Cardiolite nuclear imaging status post realignment, normalization, and attenuation correction demonstrate a small reversible perfusion defect of the mild intensity of the apex. There is end systolic thickening and brightening. The gated Cardiolite study demonstrates myocardial thickening and inward wall motion. The reported LVEF is 72%. Impression: 1. Pharmacologic (Regadenoson) evaluation 2. Peak pharmacologic ECG with no ischemic changes. 3. There were no cardiac dysrhythmias pretest, during pharmacologic infusion, or recovery. 5. Small reversible perfusion defect of the apex of mild intensity suggestive of mild ischemia. 6. The gated Cardiolite study reports an LVEF of 72%. This note was generated with M2[employer]CHation software. It may contain incorrect words, spelling, and punctuation that were not noted in checking the note before signing.
== END | disposition home or self-care (01) ==
LOC: CVS 06:55
PROVIDERS: PCP Family Medicine; Referring Provider Nurse Practitioner Family; Visit Provider Nurse Practitioner Family
DX: I25.10 Atherosclerotic heart disease of native coronary artery without angina pectoris (principal)
CPT/HCPCS: 78452; 93017; A9500; A4216; J2785

== ENCOUNTER → 2024-05-04 | Outpatient (CLI) | payer MEDICARE, SELFPAY ==
[2016-11-18 08:42] VITALS: BMI 29.2
[2024-05-04 13:16] LABS: Anion Gap 4 (5-15); BUN 31 mg/dL (7-18); Calcium,Total 9.6 mg/dL (8.5-10.1); Chloride 106 mmol/L (98-107); Cholesterol 107 mg/dL (200); Creatinine, Serum 1.15 mg/dL (0.70-1.30); EST Glomerular Filtration Rate 66 mL/min (>60); Est Glom Filt Rate - Afr Amer 79 mL/min (>60); Glucose 103 mg/dL (74-106); High Density Lipoprotein 45 mg/dL; PSA,Total - Annual Screen 0.99 ng/mL (0.00-4.00); Potassium 4.1 mmol/L (3.5-5.1); Sodium Level 137 mmol/L (136-145); Triglycerides 59 mg/dL; Very Low Density Lipoprotein 12 mg/dL (5-40)
== END | disposition home or self-care (01) ==
PROVIDERS: PCP Family Medicine; Visit Provider Family Medicine
DX: Z00.00 Encounter for general adult medical examination without abnormal findings (principal); Z13.6 Encounter for screening for cardiovascular disorders; Z12.5 Encounter for screening for malignant neoplasm of prostate
CPT/HCPCS: 36415; 80048; 80061; 84153; G0103

== ENCOUNTER → 2025-02-20 | Outpatient (CLI) | payer MEDICARE, SELFPAY ==
[2016-11-18 08:42] VITALS: BMI 29.2
[2025-02-20 10:29] LABS: AST(SGOT) 34 U/L (<=37); Alanine Aminotransfer ALT/SGPT 21 U/L (<=46); Albumin, Serum 4.1 g/dL (3.4-4.8); Alkaline Phosphatase 104 U/L (40-129); Anion Gap 11 (5-15); BUN 32 mg/dL (4-19); BUN/Creat Ratio 28.4 RATIO (10-20); Calcium,Total 9.4 mg/dL (7.6-11.0); Carbon Dioxide 22.2 mmol/L (21.0-32.0); Chloride 105 mmol/L (98-108); Cholesterol 108 mg/dL (<=200); Globulin 2.4 g/dL (2.2-4.2); Glucose 106 mg/dL (70-99); Low Density Lipoprotein Calc. 41 mg/dL; Potassium 4.6 mmol/L (3.3-5.1); Triglycerides 53 mg/dL; Very Low Density Lipoprotein 11 mg/dL (5-40); cholesterol:hdl ratio screen 1.90
== END | disposition home or self-care (01) ==
LOC: LAB 09:11
PROVIDERS: PCP Family Medicine; Referring Provider Internal Medicine Cardiovascular Disease; Visit Provider Internal Medicine Cardiovascular Disease
DX: E78.5 Hyperlipidemia, unspecified (principal); I25.10 Atherosclerotic heart disease of native coronary artery without angina pectoris
CPT/HCPCS: 36415; 80053; 80061

== ENCOUNTER → 2025-03-13 | Outpatient (CLI) | payer MEDICARE, SELFPAY ==
[2016-11-18 08:42] VITALS: BMI 29.2
--- NOTE | 2025-03-13 13:04 | ECHOD_ITS ---
Reason For Study Reason For Study: Syncope/Near Syncope Procedure This was a 2D Doppler, Color Flow transthoracic echocardiogram. Exam performed in department. Left Ventricle Normal LV size. Left ventricular systolic function is normal. The left ventricular ejection fraction is 65 %. Stage 1 diastolic dysfunction. Right Ventricle Normal RV size. Normal systolic function. Atria Normal left atrium. Normal right atrium. Mitral Valve Normal mitral valve. Tricuspid Valve Normal tricuspid valve. Mild tricuspid valve insufficiency. Pulmonary artery systolic pressure is 25 mmHg. Aortic Valve Trisinus/trileaflet aortic valve. Pulmonic Valve Normal pulmonic valve. Great Vessels Normal aortic root. The pulmonary artery is normal size. Inferior vena cava collapse with respiration. Pericardium/Pleural No pericardial effusion. MMode/2D Measurements & Calculations LVIDd: 4.4 cm IVSd: 1.2 cm Ao root diam: 3.3 cm LVIDs: 2.5 cm LVPWd: 0.97 cm RVDd: 3.0 cm FS: 44.1 % LAV(MOD-bp): 22.2 ml LVAd ap4: 26.0 cm2 SV(MOD-sp4): 51.3 ml LAV(MOD-bp) Indexed: 10.7 ml/m2 LVLd ap4: 7.4 cm SI(MOD-sp4): 24.8 ml/m2 LAV(MOD-sp2): 27.7 ml EDV(MOD-sp4): 77.8 ml LAV(MOD-sp4): 18.3 ml EDV(sp4-el): 77.5 ml LVAs ap4: 13.6 cm2 LVLs ap4: 5.9 cm ESV(MOD-sp4): 26.5 ml ESV(sp4-el): 26.7 ml EF(MOD-sp4): 65.9 % EF(sp4-el): 65.6 % SV(sp4-el): 50.8 ml LA A4 area: 10.1 cm2 LA dimension(2D): 3.8 cm RA A4 area: 7.2 cm2 TAPSE: 1.7 cm Time Measurements MV dec time: 0.37 sec Doppler Measurements & Calculations MV E max john: 45.8 cm/sec Lat Peak E' John: 7.6 cm/sec Med Peak E' John: 7.6 cm/sec MV A max john: 70.2 cm/sec E/E' lat: 6.0 E/E' med: 6.0 MV E/A: 0.65 Ao V2 max: 115.4 cm/sec LV V1 max: 105.1 cm/sec MV dec slope: 122.9 cm/sec2 Ao max P.3 mmHg LV V1 max P.4 mmHg Ao V2 mean: 88.9 cm/sec Ao mean P.3 mmHg Ao V2 VTI: 27.1 cm PA V2 max: 114.7 cm/sec TR max john: 233.5 cm/sec PA V2 mean: 69.5 cm/sec TR max P.8 mmHg ECHO/Echo Complete Interpretation Summary Normal LV size. Left ventricular systolic function is normal. The left ventricular ejection fraction is 65 %. Stage 1 diastolic dysfunction. Ordering Physician: Sushila Roberts Referring Physician: Vincent Rogers Performed By: Brina Connors, ADALID, RVT
--- OUTSIDE RECORDS SUMMARY | 2025-03-13 21:22 | XMS RPT_ITS | CCD ---
Author Organization [facility] Care Team Providers Care Armhole Baster Jumpbasting Name Role Phone Fabiana Stacy Unavailable Unavailable COSME Peters, Rufina Mckeon Unavailable Unavailrosalva Goldberg MD, Ke Arambula Unavailable [phone] MANAV Horton, Lauren cMkeon Unavailable Lana AGUIAR, Uma Ellison Unavailable Unavailable Stacy, Fabiana Unavailable Unavailable Alonso Jackson Unavailable Unavailable Stacy, Fabiana Unavailable Unavailable Stacy, Fabiana Unavailable Unavailable Lana AGUIAR, Uma Ellison Unavailable Unavailable Alonso Jackson Unavailable Unavailable Dr. Jean-Pierre Wright Referring Provider [phone] Roof RUBBER GOODS INSPECTOR, RUBBER GOODS INSPECTOR-C Jean-Pierre Rueda Attending Provider AKIN MIDDLETON DO Primary Care Physician CANDACE DALE, DR MOLINA Attending UnavailAKIN Acevedo DO Primary Care Unavailable Sue DALE, Dr. Kaur Primary Care Provider [phone] Dr. Vicnent Rogers MD Referring Provider Dr. Susihla Roberts MD Attending Provider Dr. Sushila Roberts MD Referring Provider Vincent Rogers Attending Unavailable Vincnet Rogers Primary Care Unavailable Sushila Roberts Attending Unavailable Sushila Roberts Referring Unavailable Vincent Rogers Primary Care Unavailable Vincent Rogers Attending Unavailable Vincent Rogers Primary Care Unavailable Sushila Roberts Attending Unavailable Roof RUBBER GOODS INSPECTORJean-Pierre Referring Unavailable Vincent Rogers Primary Care Unavailable Roof RUBBER GOODS INSPECTOR, Jean-Pierre Rueda Consulting Unavailable Roof RUBBER GOODS INSPECTOR, Jean-Pierre Rueda Attending Unavailable Akin Middleton Referring Unavailable Vincent Rogers Primary Care Unavailable Sushila Roberts Attending Unavailable Vincent Rogers Referring Unavailable Vincent Rogers Primary Care Unavailable ArmandoSushila Attending Unavailable Armando, Sushila Referring Unavailable Vincent Rogers Primary Care Unavailable Jean-Pierre Connors NP Attending Unavailable Jean-Pierre Connors NP Referring Unavailable Vincent Rogers Primary Care Unavailable Allergies Allergy Classification Reported Allergen(s) Allergy Type Date of Onset Reaction(s) Facility (18 sources) lisinopril; Translations: [lisinopril] drug allergy 12-01-2016 cough, Dry cough [employer] Work Phone: Medications Current Medications Medication Drug Class(es) Dates Sig (Normalized) Sig (Original) ascorbic acid 500 mg oral tablet (7 sources) Vitamin C Start: 01-27-2022 take 1 tablet by mouth once daily Ascorbic Acid (Vitamin C) 500 mg tablet Active 500 mg PO DAILY January 27, 2022 12:00am aspirin 81 mg delayed release oral tablet (18 sources) Nonsteroidal Anti-inflammatory Drug Start: 11-19-2016 take 1 tablet by mouth once daily Aspirin 81 MG tablet Active 81 mg PO DAILY@0800 30 November 19, 2016 12:00am cholecalciferol 0.125 mg oral tablet (7 sources) Vitamin D Start: 01-27-2022 take 1 tablet by mouth once daily Cholecalciferol (Vitamin D3) 125 mcg (5,000 unit) tablet Active 125 ug PO DAILY January 27, 2022 12:00am latanoprost 0.05 mg/ml ophthalmic solution (9 sources) Prostaglandin Analog Start: 02-28-2021 Latanoprost 0.005 % drops Active 1 NMA EACH EYE AT BEDTIME February 28, 2021 12:00am GLAUCOMA Start: 02-28-2021 Latanoprost Ac tive 1 DRP EACH EYE AT BEDTIME February 27, 2021 11:00pm Start: 04-01-2017 LATANOPROST 0. 005 % SOLN as directed LATANOPROST [id number] Fabiana Stacy Lopressor 25mg--USE metoprolol tartrate 25 mg oral tablet (1 source) Start: 09-30-2023 Lopressor 25mg --USE metoprolol tartrate 25 mg oral tablet Dose : 25 mg = 1 tab(s), 0 Refill(s) Start Date: 09/30/23 Status: Ordered metoprolol tartrate 25 mg oral tablet (20 sources) beta-Adrenergic [employer]ozia Start: 01-11-2024 End: 01-22-2025 Metoprolol Tartrate 25 mg tablet Active 12.5 mg PO TWICE A DAY 90 January 22, 2025 9:42am Start: 01-11-2023 End: 01-11-2024 take 0.5 tablet by mouth twice daily Metoprolol Tartrate 25 mg tablet Discontinued 0 .ROUTE .COMPLEX 90 3 January 11, 2023 8:23am January 11, 2024 10:35am TAKE 1/2 TABLET (12.5MG) BY MOUTH 2 TIMES A DAY Start: 01-11-2023 take 0.5 tablet by m outh twice daily Metoprolol Tartrate Active 0 .ROUTE .COMPLEX 90 January 11, 2023 7:23am TAKE 1/2 TABLET (12.5MG) BY MOUTH 2 TIMES A DAY Start: 11-24-2016 METOPROLOL TAR TRATE 25 MG TABS One half tablet by mouth twice daily METOPROLOL TARTRATE [id number] Alonso Jackson Start: 11-19-2016 End: 01-11-2023 Metoprolol Tartrate 25 mg ta blet Discontinued 12.5 mg PO TWICE A DAY 90 January 05, 2022 10:10am January 11, 2023 8:23am Start: 11-19-2016 End: 01-11-2023 take 12.5 mg by mouth twice daily Metoprolol Tartrate Discontinued 12.5 MG PO TWICE A DAY 90 January 05, 2022 9:10am January 11, 2023 7:23am Vd-Wl-Mkyaz-Lutein-Herbal 29 3 (Alive Men's 50 Plus Multivit) 120 mcg-150 mcg -50 mg tablet,chewable (7 sources) Start: 01-27-2022 Id-Zn-Yspyr-Vanessa tein-Herbal 293 (Alive Men's 50 Plus Multivit) 120 mcg-150 mcg -50 mg tablet,chewable Active 1 {tbl} PO DAILY January 27, 2022 12:00am Start: 01-27-2022 take 1 tablet by lexii th once daily Db-Rs-Opvke-Lutein-Herbal 293 (Alive Men 's 50 Plus Multivit) 120 mcg-150 mcg -50 mg tablet,chewable Active 1 TABLET PO DAILY January 26, 2022 11:00pm Start: 01-27-2022 Zv-Al-Wrjps-Vanessa tein-Herbal 293 (Alive Men's 50 Plus Multivit) 120 mcg-150 mcg -50 mg tablet,chewable Active TABLET PO January 26, 2022 11:00pm Start: 01-27-2022 Nh-Hp-Blowy-Vanessa tein-Herbal 293 (Alive Men's 50 Plus Multivit) 120 mcg-150 mcg -50 mg tablet,chewable Active TABLET PO January 27, 2022 12:00am zinc sulfate 220 mg oral capsule (7 sources) Start: 01-27-2022 take 1 capsule by mouth once daily Zinc Sulfate 50 mg zinc (220 mg) capsule Active 50 mg PO DAILY January 27, 2022 12:00am Completed/Discontinued Medications Medication Drug Class(es) Dates Sig (Normalized) Sig (Original) acetaminophen 325 mg / oxyCODONE hydrochloride 5 mg oral tablet (4 sources) Opioid Agonist Start: 08-12-2022 End: 03-21-2024 Oxycodone-Acetamino phen (Endocet) 5-325 mg tablet Discontinued 1 {tbl} PO EVERY 6 HOURS as needed for pain 14 7 0 August 12, 2022 March 21, 2024 9:24am Male circumcision Encounter for routine and ritual male circumcision [id number] actuat albuterol 0.09 mg/actuat metered dose inhaler (7 sources) beta2-Adrenergic Agonist Start: 02-28-2021 End: 01-27-2022 Albuterol Sulfate 90 mcg/actuation HFA aerosol inhaler Discontinued 2 NMA INHALATION Q4H as needed for SOB February 28, 2021 12:00am January 27, 2022 8:42am Start: 02-28-2021 End: 01-27-2022 Albuterol Sulfate Discontinu ed 2 INH INHALATION Q4H February 27, 2021 11:00pm January 27, 2022 7:42am atorvastatin 40 mg oral tablet (20 sources) HMG-CoA Reductase Inhibitor Start: 04-22-2020 End: 06-26-2024 take 1 tablet by mouth at bedtime Atorvastatin 40 mg tablet Discontinued 40 mg PO AT BEDTIME 90 4 June 14, 2023 2:41pm June 26, 2024 12:13pm Start: 11-19-2016 End: 04-22-2020 take 1 tablet by mouth at bedtime Atorvastatin 80 mg tablet Discontinued 80 mg PO AT BEDTIME 90 3 November 02, 2019 10:44am April 22, 2020 3:26pm azithromycin 250 mg oral tablet (7 sources) Macrolide Antimicrobial Start: 02-28-2021 End: 03-01-2021 take 1 tablet by mouth once daily Azithromycin 250 mg tablet Discontinued 250 mg PO DAILY February 28, 2021 12:00am March 01, 2021 10:15am benzonatate 100 mg oral capsule (7 sources) Non-narcotic Antitussive Start: 03-01-2021 End: 06-27-2021 take 2 capsules by mouth three times daily as needed for cough Benzonatate 100 mg Capsule Discontinued 200 mg PO 3 TIMES DAILY NEEDED as needed for Cough March 01, 2021 10:14am June 27, 2021 2:53pm Start: 03-01-2021 End: 06-27-2021 take 200 mg by mouth three times daily as needed Benzonatate Discontinued 200 MG PO 3 TIMES DAILY NEEDED March 01, 2021 9:14am June 27, 2021 1:53pm clopidogrel 75 mg oral tablet (20 sources) [id number] Platelet Inhibitor Start: 10-31-2017 End: 03-21-2024 take 1 tablet by mouth once daily Clopidogrel (Plavix) 75 mg tablet Discontinued 75 mg PO DAILY 90 3 March 16, 2024 2:44pm March 21, 2024 9:39am Start: 12-22-2016 take 1 tablet by lexii once daily PLAVIX 75 MG TABS One tablet by mouth daily CLOPIDOGREL BISULFATE [id number] Fabiana Stacy Start: 12-22-2016 take 4 tablets by mo [facility] once daily, then take 1 tablet by mouth once daily PLAVIX 75 MG TABS Take 4 tablets (300 mg) of Plavix by mouth on day of last Brilinta tablet, then One tablet by mouth daily. (Stop Brilinta day after loading dose Plavix). CLOPIDOGREL BISULFATE [id number] Ke Goldberg MD dexamethasone 2 mg oral tablet (7 sources) Corticosteroid Start: 03-01-2021 End: 06-27-2021 take 3 tablets by mouth once daily Dexamethasone 2 mg tablet Discontinued 6 mg PO DAILY 24 0 March 01, 2021 12:00am June 27, 2021 2:53pm start on 03/02/21 Start: 03-01-2021 End: 06-27-2021 take 6 mg by mouth once daily Dexamethasone Discontinu ed 6 MG PO DAILY February 28, 2021 11:00pm June 27, 2021 1:53pm start on 03/02/21 lisinopril 5 mg oral tablet (20 sources) Angiotensin Converting Enzyme Inhibitor Start: 11-19-2016 End: 10-31-2017 take 1 tablet by mouth once daily Lisinopril 5 MG tablet Discontinued 5 mg PO DAILY 30 November 19, 2016 12:00am October 31, 2017 6:44pm losartan potassium 25 mg oral tablet (20 sources) Angiotensin 2 Receptor Fozia Start: 10-31-2017 End: 02-18-2024 take 1 tablet by mouth once daily Losartan 25 mg tablet Discontinued 25 mg PO DAILY 90 February 19, 2023 10:00am February 18, 2024 9:47am Start: 12-01-2016 take 1 tablet by lexii th once daily LOSARTAN POTASSIUM 25 MG TABS One tablet by mouth daily LOSARTAN POTASSIUM [id number] Ke Goldberg MD pantoprazole 40 mg delayed release oral tablet (3 sources) Proton Pump Inhibitor Start: 03-21-2024 End: 02-13-2025 take 1 tablet by mouth once daily Pantoprazole 40 mg tablet,delayed release (DR/EC) Discontinued 40 mg PO daily March 21, 2024 12:00am February 13, 2025 10:51am Start: 09-30-2023 pantoprazole 4 0 mg oral enteric coated tablet Dose : 40 mg = 1 tab(s), 0 Refill(s) Start Date: 09/30/23 Status: Ordered ticagrelor 90 mg oral tablet (20 sources) Start: 11-19-2016 End: 10-31-2017 take 1 tablet by mouth twice daily Ticagrelor 90 MG tablet Discontinued 90 mg PO TWICE A DAY 60 November 19, 2016 12:00am October 31, 2017 6:45pm Problems Active Problems Problem Classification Problem Date Documented Date Episodic/Chronic Acute myocardial infarction (11 sources) Acute myocardial infarction; Translations: [ST elevation (STEMI) myocardial infarction of unspecified site] Onset: 11-24-2016 11-24-2016 Chronic Coronary atherosclerosis and other heart disease (20 sources) Atherosclerotic heart disease of [place] coronary artery without angina pectoris; Translations: [Old anterior myocardial infarction ] Onset: 11-24-2016 11-24-2016 Chronic Comment on above: PCI-ALEXANDRU-Mid LAD 3.5 x 20 mm Synergy 11/17/2016 Disorders of lipid metabolism (20 sources) Hyperlipidemia; Translations: [Hyperlipidemia, unspecified] Onset: 11-24-2016 11-24-2016 Chronic Essential hypertension (9 sources) Essential hypertension; Translations: [Essential (primary) hypertension] 01-27-2022 Chronic Glaucoma (1 source) Glaucoma; Translations: [Unspecified glaucoma] Onset: 08-07-2022 Chronic Other conditions (4 sources) Circumcised foreskin; Translations: [Encounter for routine and ritual male circumcision] 08-12-2022 Episodic Syncope (18 sources) Syncope; Translations: [Syncope and collapse] Onset: 02-13-2025 Episodic Unclassified (7 sources) Placement of stent in coronary artery ; Translations: [Presence of coronary angioplasty implant and graft] Onset: 11-24-2016 11-24-2016 Viral infection (14 sources) COVID-19; Translations: [Pneumonia due to 2019-nCoV] 01-27-2022 Episodic Past or Other Problems Problem Classification Problem Date Documented Da te Episodic/Chronic Coronary atherosclerosis and other heart disease (2 sources) Presence of coronary angioplasty implant and graft; Translations: [Percutaneous transluminal coronary angioplasty status] Onset: 10-24-2016 Episodic Other nutritional; endocrine; and metabolic disorders (9 sources) Body mass index (BMI) 27.0-27.9, adult; Translations: [Body mass index (BMI) 27.0-27.9, adult] Onset: 12-04-2016 12-04-2016 Episodic Other screening for suspected conditions (not mental disorders or infectious disease) (2 sources) Encounter for screening for cardiovascular disorders; Translations: [Encounter for screening for malignant neoplasm of prostate] Onset: 04-17-2024 Episodic Results Test Name Value Interpretation Reference Range Facility Anion gap in Serum or Plasma Ordered By: Sushila Roberts on 02-20-2025 Anion gap [Moles/Vol] 11 mmol/L 5-15 [facility] BUN/creatinine ratioOrdered By: Sushila Roberts on 02-20-2025 Urea nitrogen/Creatinine [Mass ratio] 28.4 mg/mg High 10-20 [facility] Bilirubin, totalOrdered By: Sushila Roberts on 02-20-2025 Bilirubin [Mass/Vol] 2.20 mg/dL High 0.00-1.30 [facility] Calculated very low density lipoprotein (VLDL) cholesterol measurementOrdered By: Sushila Roberts on 02-20-2025 Calculated very low density lipoprotein (VLDL) cholesterol measurement 11 mg/dL 5-40 [facility] Carbon dioxide, total [Moles /volume] in Central venous bloodOrdered By: Sushila Roberts on 02-20-2025 CO2 [Moles/Vol] 22.2 mmol/L 21.0-32.0 [facility] Chloride assayOrdered By: Johnny Roberts on 02-20-2025 Chloride [Moles/Vol] 105 mmol/L 98-108 [facility] Comprehensive Metabolic Prof ilon 02-20-2025 Albumin [Mass/Vol] 4.1 g/dL Normal 3.4-4.8 [facility] Comment on above: Performed By: #### L 500.4100, [id number] #### [facility] [address] [place], [address] Albumin/Globulin [Mass ratio] 1.7 {ratio} Normal 0.9-2.4 [facility] Comment on above: Performed By: #### L 500.4100, [id number] #### [facility] [address] [place], [address] ALK PHOS 104 U/L Normal 40-129 [facility] Comment on above: Performed By: #### L 500.4100, [id number] #### [facility] [address] [place], [address] ALT [Catalytic activity/Vol] 21 U/L Normal <=46 [facility] Comment on above: Performed By: #### L 500.4100, [id number] #### [facility] [address] [place], [address] AST [Catalytic activity/Vol] 34 U/L Normal <=37 [facility] Comment on above: Performed By: #### L 500.4100, [id number] #### [facility] [address] [place], [address] Bilirubin [Mass/Vol] 2.20 mg/dL High 0.00-1.30 [facility] Comment on above: Performed By: #### L 500.4100, [id number] #### [facility] [address] [place], [address] BUN/CRE 28.4 RATIO High 10-20 [facility] Comment on above: Performed By: #### L 500.4100, [id number] #### [facility] [address] [place], [address] Calcium [Mass/Vol] 9.4 mg/dL Normal 7.6-11.0 [facility] Comment on above: Performed By: #### L 500.4100, [id number] #### [facility] [address] [place], [address] Chloride [Moles/Vol] 105 mmol/L Normal 98-108 [facility] Comment on above: Performed By: #### L 500.4100, [id number] #### [facility] [address] [place], [address] CO2 [Moles/Vol] 22.2 mmol/L Normal 21.0-32.0 [facility] Comment on above: Performed By: #### L 500.4100, [id number] #### [facility] [address] [place], [address] Creatinine [Mass/Vol] 1.12 mg/dL Normal 0.70-1.20 [facility] Comment on above: Performed By: #### L 500.4100, [id number] #### [facility] [address] [place], [address] GAP 11 Normal 5-15 [facility] Comment on above: Performed By: #### L 500.4100, [id number] #### [facility] [address] [place], [address] GFR/1.73 sq M.predicted among non-blacks MDRD (S/P/Bld) [Vol rate/Area] 67 mL/min/{1.73_m2} Normal >60 [facility] Comment on above: Result Comment: mL/m in/1.73m2 CKD-EPI Creatinine Equation (2020) Performed By: #### L 500.4100, [id number] #### [facility] [address] [place], [address] Globulin (S) [Mass/Vol] 2.4 g/dL Normal 2.2-4.2 [facility] Comment on above: Performed By: #### L 500.4100, [id number] #### [facility] [address] [place], [address] Glucose [Mass/Vol] 106 mg/dL High 70-99 [facility] Comment on above: Performed By: #### L 500.4100, [id number] #### [facility] [address] [place], [address] Potassium [Moles/Vol] 4.6 mmol/L Normal 3.3-5.1 [facility] Comment on above: Performed By: #### L 500.4100, [id number] #### [facility] [address] [place], [address] Sodium [Moles/Vol] 138 mmol/L Normal 133-145 [facility] Comment on above: Performed By: #### L 500.4100, [id number] #### [facility] [address] [place], [address] T PROT 6.5 g/dL Normal 5.9-8.4 [facility] Comment on above: Performed By: #### L 500.4100, [id number] #### [facility] [address] [place], [address] Urea nitrogen [Mass/Vol] 32 mg/dL High 4-19 [facility] Comment on above: Performed By: #### L 500.4100, [id number] #### [facility] [address] [place], [address] Glomerular filtration rate ( GFR) estimation/1.73 sq m using serum, plasma, or whole bOrdered By: Sushila Roberts on 02-20-2025 GFR/1.73 sq M.predicted among non-blacks MDRD (S/P/Bld) [Vol rate/Area] 67 mL/min/{1.73_m2} >60 [facility] Comment on above: mL/min/1.73m2 CKD-EP I Creatinine Equation (2020) LDL calc ser/plasOrdered By: Sushila Roberts on 02-20-2025 Cholesterol in LDL [Mass/Vol] 41 mg/dL [facility] Comment on above: Ginzgxiwpp=736-572 m g/dL & Higher Unwz=442 mg/dL or greaterFriedwald Equation for LDL-C Laboratory - Chemistry and C hemistry - challengeOrdered By: Sushila Roberts on 02-20-2025 AST [Catalytic activity/Vol] 34 U/L <38 [facility] Lipid Profileon 02-20-2025 CHOL:HDL 1.90 Normal [facility] Comment on above: Performed By: #### L 500.4100, [id number] #### [facility] [address] [place], [address] Cholesterol [Mass/Vol] 108 mg/dL Normal <=200 [facility] Comment on above: Result Comment: Chol esterol level, Desirable <200 mg/dL Borderline high cholesterol 200-239 mg/dL High cholesterol >=240 mg/dL Recommendations of the NCEP Adult Treatment Panel for the following risk-cutoff thresholds for the [place] population. Performed By: #### L 500.4100, [id number] #### [facility] [address] [place], [address] Cholesterol in HDL [Mass/Vol] 57 mg/dL Normal [facility] Comment on above: Result Comment: Gaye onal Cholesterol Education Program (NCEP) guidelines: <40 mg/dL: Low HDL-cholesterol (major risk factor for CHD) >= 60 mg/dL: High HDL-cholesterol (negative risk factor for CHD) HDL-cholesterol is affected by a number of factors, e.g. smoking, exercise, hormones, sex and age. Performed By: #### L 500.4100, [id number] #### [facility] [address] [place], [address] Cholesterol in LDL [Mass/Vol] 41 mg/dL Normal [facility] Comment on above: Result Comment: Bord ovshrv=985-673 mg/dL Higher Xjmd=826 mg/dL or greater Friedwald Equation for LDL-C Performed By: #### L 500.4100, [id number] #### [facility] [address] [place], [address] Cholesterol in VLDL [Mass/Vol] 11 mg/dL Normal 5-40 [facility] Comment on above: Performed By: #### L 500.4100, [id number] #### [facility] [address] [place], [address] Triglyceride [Mass/Vol] 53 mg/dL Normal [facility] Comment on above: Result Comment: The drugs N-Acetylcysteine and Metamizole may falsely depress this assay. Normal range: <150 mg/dL Borderline High: 150-199 mg/dL High: 200-499 mg/dL Very High: >500 mg/dL Performed By: #### L 500.4100, [id number] #### [facility] [address] [place], [address] Potassium measurement (mass/ volume)Ordered By: Sushila Roberts on 02-20-2025 Potassium (Unsp spec) [Mass/Vol] 4.6 mmol/L 3.3-5.1 [facility] Screening total cholesterol/ high density lipoprotein (HDL) cholesterol ratioOrdered By: Sushila Roberts on 02-20-2025 Cholesterol.total/Chol esterol in HDL [Mass ratio] 1.90 {ratio} [facility] Serum creatinine measurement (mass/volume)Ordered By: Sushila Roberts on 02-20-2025 Creatinine [Mass/Vol] 1.12 mg/dL 0.70-1.20 [facility] Serum globulin measurementOr dered By: Sushila Roberts on 02-20-2025 Globulin (S) [Mass/Vol] 2.4 g/dL 2.2-4.2 [facility] Serum glucose measurement (m ass/volume)Ordered By: Sushila Roberts on 02-20-2025 Glucose [Mass/Vol] 106 mg/dL High 70-99 [facility] Serum or plasma alanine salomon otransferase (ALT) measurementOrdered By: Sushila Roberts on 02-20-2025 ALT [Catalytic activity/Vol] 21 U/L <47 [facility] Serum or plasma albumin zena urement (mass/volume)Ordered By: Sushila Roberts on 02-20-2025 Albumin [Mass/Vol] 4.1 g/dL 3.4-4.8 [facility] Serum or plasma albumin/glob ulin mass ratioOrdered By: Sushila Roberts on 02-20-2025 Albumin/Globulin [Mass ratio] 1.7 {ratio} 0.9-2.4 [facility] Serum or plasma alkaline santos sphatase measurementOrdered By: Sushila Roberts 02-20-2025 ALP [Catalytic activity/Vol] 104 U/L 40-129 [facility] Serum or plasma calcium zena urement (mass/volume)Ordered By: Sushila Roberts on 02-20-2025 Calcium [Mass/Vol] 9.4 mg/dL 7.6-11.0 [facility] Serum or plasma cholesterol in HDL measurement (mass/volume)Ordered By: Sushila Roberts on 02-20-2025 Cholesterol in HDL [Mass/Vol] 57 mg/dL >40 [facility] Comment on above: National Cholesterol Education Program (NCEP) guidelines:<40 mg/dL: Low HDL-cholesterol (major risk factor for CHD)>= 60 mg/dL: High HDL-cholesterol (negative risk factor for CHD)HDL-cholesterol is affected by a number of factors, e.g. smoking, exercise, hormones, sex and age. Serum or plasma cholesterol measurement (mass/volume)Ordered By: Sushila Roberts on 02-20-2025 Cholesterol [Mass/Vol] 108 mg/dL <201 [facility] Comment on above: Cholesterol level, D esirable <200 mg/dLBorderline high cholesterol 200-239 mg/dLHigh cholesterol >=240 mg/dLRecommendations of the NCEP Adult Treatment Panel for the following risk-cutoff thresholds for the [place] population. Serum or plasma urea nitroge n measurement (mass/volume)Ordered By: Sushila Roberts on 02-20-2025 Urea nitrogen [Mass/Vol] 32 mg/dL High 4-19 [facility] Sodium levelOrdered By: Terry Roberts on 02-20-2025 Sodium [Moles/Vol] 138 mmol/L 133-145 [facility] Total proteinOrdered By: Negin Roberts on 02-20-2025 Protein [Mass/Vol] 6.5 g/dL 5.9-8.4 [facility] Triglycerides measurementOrd ered By: Sushila Roberts on 02-20-2025 Triglyceride [Mass/Vol] 53 mg/dL <199 [facility] Comment on above: The drugs N-Acetylcy steine and Metamizole may falsely depress this assay. Normal range: <150 mg/dLBorderline High: 150-199 mg/dLHigh: 200-499 mg/dLVery High: >500 mg/dL Cardiology Visit Reporton Cardiology Visit Report [facility] [place] [facility] [address] [place] [address] OFFICE VISIT Date of Service: 02/13/25 MR#: [id number] Acct: [id number] Name: VALERIA EMERY Rep #: [id number] : 1945 Provider: Dr. Sushila Roberts MD Age/Sex: 80/M Location: [facility] Status: Signed HPI HPI History of Present Illness Details: This pleasant gentleman has had an anterior VT in 2017, treated with primary percutaneous intervention with a drug-eluting stent. Here for follow-up visit. Patient keeps physically very active. He works out 3 days a week. Denies any chest pains or shortness of breath either at rest or with exertion. No palpitations. No orthopnea or PND. No ankle edema. Tolerating his atorvastatin well. Denies any muscle aches or pains. Intake Vital Signs 03/21/24 09:20 02/13/25 10:49 Height 6 ft 6 ft Weight: 191 lb BMI 25.9 BP 111/69 Blood Pressure Location Lt brachial Position Sitting Respiration 18 Pulse 57 L Pulse Source Monitor Pulse Oximetry (%) 98 Oxygen Delivery Method room air Intake Visit Reasons: 1 Y FU Biometrics Consultant Required: No Accompanied by: Self Is patient in pain?: No Allergies lisinopril Adverse Reaction (Verified 02/13/25 10:50) Dry cough Medications ???Medication ???Instructions ???Recorded ???Confirmed ???Type aspirin 81 mg tablet,delayed 81 mg PO DAILY@0800 #30 tabs 11/1902/13/25 Rx release latanoprost 0.005 % eye drops 1 drp EACH EYE QHS GLAUCOMA 02/13/25 History ascorbic acid (vitamin C) 500 mg 500 mg PO DAILY 01/27/22 02/13/25 History tablet cholecalciferol (vitamin D3) 125 125 mcg PO DAILY 01/27/22 02/13/25 History mcg (5,000 unit) tablet ciusogux-iwe-fafwf 120 mcg-lutein 1 tab PO DAILY 01/27/22 02/13/25 History 150 mcg-herb 50 mg chewable tablet (Alive Men's 50 Plus Multivitamin) zinc sulfate 50 mg zinc (220 mg) 50 mg PO DAILY 01/27/22 02/13/25 H istory capsule losartan 25 mg tablet 25 mg PO DAILY #90 tabs 02/18/24 0 02/13/25 Rx atorvastatin 40 mg tablet 40 mg PO QHS #90 tabs 06/26/24 Rx metoprolol tartrate 25 mg tablet 12.5 mg (1/2 x 25 mg) PO BID #90 0 01/22/25 02/13/25 Rx TABLETS Have you fallen in the past year?: No PFSH Medical History Wears glasses Alcohol use Arthritis High cholesterol History of echocardiogram History of stress test Hypertension Cardiology follow-up encounter History of rheumatic fever Essential hypertension Former smoker Myocardial infarct Pneumonia due to COVID-19 virus Pneumonia due to 2019-nCoV Syncope Hyperlipidemia Old anterior myocardial infarction Atherosclerosis of coronary artery of [place] heart without angina pectoris Surgical History Hx of colonoscopy ( 10/2023) History of esophagogastroduodenoscopy (EGD) History of appendectomy History of coronary artery stent placement History of coronary artery stent placement ( 11/17/16) Family History Mother Breast cancer Social History Smoking Status: Former smoker how long ago did patient quit smokin alcohol intake: current alcohol intake frequency: 0-2 drinks per day Alcohol type: beer substance use type: does not use caffeine: Yes Type: coffee Number of servings: 1 ROS Const Const: Negative for fatigue or weakness ENT ENT: Negative for dizziness or balance problems Cardio Chest Pain: No Palpitations: No Edema: None Muscle aches with walking: None Resp Respiratory: Negative for SOB with activity, SOB at rest or SOB orthopnea SOB lying down GI GI: Negative nausea, vomiting or heartburn Musc Musc: Negative for muscle weakness or balance problems Neuro Neuro: Negative for dizziness, lightheadedness, near syncope, syncope or weakness Endo Endo: Negative for fatigue Cardiology Exam Const Appearance: comfortable and no acute distress Nutritional Appearance: well nourished Neck Neck: no JVD Carotids: Negative bruit Chest Auscultation: Bilateral: Clear to Auscultation Cardio Rate: regular rate Rhythm: regular rhythm Heart sounds: S1 normal and S2 normal Neuro General: patient alert, patient awake and patient oriented x3 Extremities Lower Extremity Edema: None: Bilateral Supplemental Info Supplemental Information Labs: LDL Cholesterol 50 mg/dL (0-130) HDL Cholesterol 45 mg/dL (40-) Cholesterol 107 mg/dL (200) Triglycerides 59 mg/dL (-199) Diagnostics: Stress Test Stress Test Nuclear Medicine Chest X-Ray Pulmonary: No Data to Display Past Visits: Cardiology Visit (more content not included)... Normal [facility] Basic Metabolic Profile (BMP )on 05-04-2024 BUN/CRE 27.0 RATIO High 05-14 [facility] Comment on above: Performed By: #### L 500.2500, L501.9910, L500.4100 #### [facility] [address] [place], [address] CA,Total 9.6 mg/dL Normal 8.5-10.1 [facility] Comment on above: Performed By: #### L 500.2500, L501.9910, L500.4100 #### [facility] [address] [place], [address] Chloride [Moles/Vol] 106 mmol/L Normal 98-107 [facility] Comment on above: Performed By: #### L 500.2500, L501.9910, L500.4100 #### [facility] [address] [place], [address] CO2 [Moles/Vol] 28.0 mmol/L Normal 21.0-32.0 [facility] Comment on above: Performed By: #### L 500.2500, L501.9910, L500.4100 #### [facility] [address] [place], [address] Creatinine [Mass/Vol] 1.15 mg/dL Normal 0.70-1.30 [facility] Comment on above: Result Comment: The validity of the calculated GFR GFRAA in patients over 70 years has not been determined. Clinical correlation is essential. Performed By: #### L 500.2500, L501.9910, L500.4100 #### [facility] [address] [place], [address] EST GFR - AA 79 mL/min Normal >60 [facility] Comment on above: Result Comment: Afri can [place] GFR Calc Performed By: #### L 500.2500, L501.9910, L500.4100 #### [facility] [address] [place], [address] GAP 4 Low 5-15 [facility] Comment on above: Performed By: #### L 500.2500, L501.9910, L500.4100 #### [facility] [address] [place], [address] GFR/1.73 sq M.predicted among non-blacks MDRD (S/P/Bld) [Vol rate/Area] 66 mL/min/{1.73_m2} Normal >60 [facility] Comment on above: Result Comment: Non- GFR Calc Performed By: #### L 500.2500, L501.9910, L500.4100 #### [facility] [address] [place], [address] Glucose [Mass/Vol] 103 mg/dL Normal 74-106 [facility] Comment on above: Result Comment: Fast ing Glucose result from 100 to 125 mg/dL suggests IMPAIRED HOMEOSTASIS per A.D.A. criteria. Performed By: #### L 500.2500, L501.9910, L500.4100 #### [facility] [address] [place], [address] Potassium [Moles/Vol] 4.1 mmol/L Normal 3.5-5.1 [facility] Comment on above: Performed By: #### L 500.2500, L501.9910, L500.4100 #### [facility] [address] [place], [address] Sodium [Moles/Vol] 137 mmol/L Normal 136-145 [facility] Comment on above: Performed By: #### L 500.2500, L501.9910, L500.4100 #### [facility] [address] [place], [address] Urea nitrogen [Mass/Vol] 31 mg/dL High 7-18 [facility] Comment on above: Performed By: #### L 500.2500, L501.9910, L500.4100 #### [facility] [address] [place], [address] Lipid Profileon 05-04-2024 Cholesterol [Mass/Vol] 107 mg/dL Normal 200 [facility] Comment on above: Result Comment: <200 mg/dL Desirable 200-240 mg/dL Borderline >240 mg/dL High Risk Performed By: #### L 500.2500, L501.9910, L500.4100 #### [facility] [address] [place], [address] Cholesterol in HDL [Mass/Vol] 45 mg/dL Normal [facility] Comment on above: Result Comment: The drugs N-Acetylcysteine and Metamizole may falsely depress this assay. Reference Range HDL <40 mg/dL Low HDL Cholesterol HDL >or= 60 mg/dL High HDL Cholesterol Performed By: #### L 500.2500, L501.9910, L500.4100 #### [facility] [address] [place], [address] Cholesterol in LDL [Mass/Vol] 50 mg/dL Normal 0-130 [facility] Comment on above: Performed By: #### L 500.2500, L501.9910, L500.4100 #### [facility] [address] [place], [address] Cholesterol in VLDL [Mass/Vol] 12 mg/dL Normal 5-40 [facility] Comment on above: Performed By: #### L 500.2500, L501.9910, L500.4100 #### [facility] [address] [place], [address] Triglyceride [Mass/Vol] 59 mg/dL Normal [facility] Comment on above: Result Comment: The drugs N-Acetylcysteine and Metamizole may falsely depress this assay. Serum Triglycerides Reference Interval Normal <150 mg/dL Borderline high 150 - 199 mg/dL High 200 - 499 mg/dL Very High > or = 500 mg/dL Performed By: #### L 500.2500, L501.9910, L500.4100 #### [facility] [address] [place], [address] PSA,Total - Annual Screenon 05-04-2024 PSA,TOT SCREEN 0.99 ng/mL Normal 0.00-4.00 [facility] Comment on above: Result Comment: This test was performed using the TPSA assay method for the [employer] chemistry system. Values obtained with different assay methods cannot be used interchangably. When changing PSA assays in the course of monitoring a patient, additional sequential testing should be carried out to confirm baseline values. Performed By: #### L 500.2500, L501.9910, L500.4100 #### [facility] [address] [place], [address] Stress Reporton 04-11-2024 Stress Report [facility] [address] [place] [address] MR#: [id number] Acct: [id number] Name: VALERIA EMERY Rep #: [id number] : 1945 79 From: Sushila Roberts MD Primary Care: Dr. Vincent Rogers MD Status: REG CLI Referring Dr: Jean-Pierre Connors NP [employer]-C Sex: M C Stress Test Report Date: 04/11/2024 Procedure: Pharmacologic stress nuclear imaging study Indications: Coronary artery disease Consent: Per the patient Procedure: The patient underwent pharmacologic (Regadenoson 0.4mg ) evaluation with a peak heart rate of 91 beats per minute (63%predicted maximal heart rate) and a peak blood pressure of 126/76 mmHg. The baseline ECG demonstrated sinus rhythm. The peak pharmacologic ECG demonstrated no ischemic changes. There were no cardiac dysrhythmias pretest, during pharmacologic infusion, or recovery. There was no complaint of chest discomfort during pharmacologic infusion or recovery. The patient was injected with 12.0 millicuries of technetium 99m Cardiolite and subsequently rest SPECT Cardiolite nuclear imaging was obtained in the horizontal long, vertical long, and short axis views. The patient underwent pharmacologic (Regadenoson) evaluation. The patient was injected with 34.5 millicuries of technetium 99m Cardiolite and subsequently stress SPECT Cardiolite nuclear imaging was obtained in the horizontal long, vertical long, and short axis views. A gated Cardiolite study at peak stress was obtained. The examination was stopped secondary to completion of protocol. Rest and stress SPECT Cardiolite nuclear imaging status post realignment, normalization, and attenuation correction demonstrate a small reversible perfusion defect of the mild intensity of the apex. There is end systolic thickening and brightening. The gated Cardiolite study demonstrates myocardial thickening and inward wall motion. The reported LVEF is 72%. Impression: 1. Pharmacologic (Regadenoson) evaluation 2. Peak pharmacologic ECG with no ischemic changes. 3. There were no cardiac dysrhythmias pretest, during pharmacologic infusion, or recovery. 5. Small reversible perfusion defect of the apex of mild intensity suggestive of mild ischemia. 6. The gated Cardiolite study reports an LVEF of 72%. This note was generated with BRIKA dictation software. It may contain incorrect words, spelling, and punctuation that were not noted in checking the note before signing. 04/11/24 1141 Date Sushila Roberts MD CC: BONITA Connors; Dr. Vincent Rogers MD Date Dictated: 04/11/24 1139 Date Transcribed: 04/11/24 113 Quality Assurance Monitor Final: JOHNNY Signed Normal [facility] Cardiology Visit Reporton Cardiology Visit Report [facility] [address] [place] [address] OFFICE VISIT Date of Service: 03/21/24 MR#: [id number] Acct: [id number] Name: VALERIA EMERY Rep #: [id number] : 1945 Provider: BONITA chicas Age/Sex: 79/M Location: [facility] Status: Signed HPI [facility] History of Present Illness Details: This is a 79-year-old white male with a history of underlying CAD, status post VT/STEMI, status post LAD PTCA/ALEXANDRU (2016), hyperlipidemia, syncopal episode (April 2020) who presents for outpatient cardiovascular follow-up. He states he did experience the COVID-19 virus in February 2021. He denies chest, arm, jaw, or neck discomfort. He denies symptoms of shortness of breath with exertion, shortness of breath at rest, orthopnea, PND, sudden weight gain, or bilateral lower extremity edema. He states intermittent cough that he attributes to COVID-19 exposure previously. He denies palpitations, lightheadedness, dizziness, near syncope, or syncopal episodes. He denies claudication issues. He denies fever or chills. He denies blood in urine, blood in stool, or epistaxis. He denies myalgia. He denies unexplainable fatigue. His exercise tolerance is stable via housework getting 4,000-11,000 steps per day and working out/biking 3 days a week upwards to 5 miles per day along with using weights. Intake Vital Signs 03/18/23 10:46 03/21/24 09:20 Height 6 ft 6 ft Weight: 195 lb 195 lb BMI 26.4 26.4 BP 119/75 Blood Pressure Location Lt brachial Position Sitting Respiration 16 Pulse 58 L Pulse Source NIBP Intake Visit Reasons: 1 Y FU Biometrics Consultant Required: No Is patient in pain?: No Allergies lisinopril Adverse Reaction (Verified 03/21/24 09:20) Dry cough Medications ???Medication ???Instructions ???Recorded ???Confirmed ???Type aspirin 81 mg tablet,delayed 81 mg PO DAILY@0800 #30 tabs 11/19/16 03/21/24 Rx release latanoprost 0.005 % eye drops 1 drp EACH EYE QHS GLAUCOMA 02/28/21 03/21/24 History ascorbic acid (vitamin C) 500 mg 500 mg PO DAILY 01/27/22 03/21/24 History tablet cholecalciferol (vitamin D3) 125 125 mcg PO DAILY 01/27/22 03/21/24 History mcg (5,000 unit) tablet emgfiopo-pkp-helwe 120 mcg-lutein 1 tab PO DAILY 01/27/22 03/21/24 History 150 mcg-herb 50 mg chewable tablet (Alive Men's 50 Plus Multivitamin) zinc sulfate 50 mg zinc (220 mg) 50 mg PO DAILY 01/27/22 03/21/24 History capsule atorvastatin 40 mg tablet 40 mg PO QHS #90 tabs 06/14/23 03/21/24 Rx metoprolol tartrate 25 mg tablet 12.5 mg (1/2 x 25 mg) PO BID #90 01/11/24 03/21/24 Rx TABLETS losartan 25 mg tablet 25 mg PO DAILY #90 tabs 02/18/24 03/21/24 Rx pantoprazole 40 mg tablet,delayed 40 mg PO QDAY 03/21/24 03/21/24 History release Ejection fraction %: 60 Have you fallen in the past year?: No Nurse's Note: Would like to talk about stopping plavix. [facility] Medical History Wears glasses Alcohol use Arthritis High cholesterol History of echocardiogram History of stress test Hypertension Cardiology follow-up encounter History of rheumatic fever Essential hypertension Former smoker Myocardial infarct Pneumonia due to COVID-19 virus Pneumonia due to 2019-nCoV Syncope Hyperlipidemia Old anterior myocardial infarction Atherosclerosis of coronary artery of [place] heart without angina pectoris Surgical History Hx of colonoscopy ( 10/2023) History of esophagogastroduodenoscopy (EGD) History of appendectomy History of coronary artery stent placement History of coronary artery stent placement ( 11/17/16) Family History Mother Breast cancer Social History Smoking Status: Former smoker how long ago did patient quit smokin alcohol intake: current alcohol intake frequency: 0-2 drinks per day Alcohol type: beer substance use type: does not use caffeine: Yes Type: coffee Number of servings: 1 ROS Const Const: Negative for fatigue or weakness Eyes Eyes: Negative for change in vision ENT ENT: Negative for dizziness, Nosebleed/epistaxis or balance problems Cardio Chest Pain: No Palpitations: No Edema: None Muscle aches with walking: None Resp Respiratory: Negative for SOB with activity, SOB at rest, SOB orthopnea SOB lying down, Cough or paroxysmal nocturnal dyspnea GI GI: Negative nausea, heartburn or black,tarry stools : Negative for hematuria Musc Musc: Negative for muscle aches/ myalgia, muscle weakness, joint pain or balance problems Skin Skin: Negative rash Neuro Neuro: Negative for dizziness, lightheadedness, near s (more content not included)... Normal [facility] Final Surgical Pathology Rep chidi 10-05-2023 Final Surgical Pathology Report . Pathology Reports Accession: Collected Date/Time: Received Date/Time: Pathologist: [id number] 10/04/2023 08:38 EDT 10/04/2023 14:03 EDT MD DEE LASSITER Final Surgical Pathology Report DIAGNOSIS: GASTRIC PYLORUS, BIOPSY: - FOCAL SURFACE EROSION WITH MILD CHRONIC INFLAMMATION AND REACTIVE CHANGES - NEGATIVE FOR H. PYLORI CLINICAL INFORMATION: PROCEDURE: ESOPHAGOGASTRODUODENOSCOPY WITH BIOPSY PREOPERATIVE DIAGNOSIS: MELENA POSTOPERATIVE DIAGNOSIS: MELENA SPECIMEN: A GASTRIC PYLORUS BIOPSY GROSS DESCRIPTION: All parts labelled with patient name and [id number] Received in formalin labeled gastric pylorus biopsy are 2 huggins-pink tissue fragments measuring less than 0.1 and 0.2 cm. The smallest fragment may not survive processing. TS-1 Yuridia Coelho, Grossing Sexual Assault Counselor/ Dr. Ke Leiva, Pathologist Dictated by Yuridia Coelho MICROSCOPIC DESCRIPTION: The microscopic examination is performed, except in the case of Gross Only. Electronically Signed by Pathology Report verified by [facility] DEE LASSITER MD Sign out Date: 10/05/2023 07:29 Performing Lab: [facility], [address] [place] [address] Pathology Dept Disclaimer If ancillary studies were utilized, the following Laboratory Developed Test (LDT) disclaimer will apply: Under CLIA requirements, [facility] Pathology [facility] is qualified to perform high complexity testing. For all ancillary stains, positive and negative controls stain appropriately. Performance characteristics of immunohistochemical and chromogenic in-situ hybridization tests have been determined by [facility] Path[facility]. These tests are used for clinical purposes, They should not be regarded as investigational or for research. Normal [facility] ([place]) Culture, urineOrdered By: Yamile Manning on 07-26-2022 Bacteria identified Cx Nom (U) Positive [facility] Absolute lymphocyte countOrd ered By: Elaine Manning on 07-24-2022 Lymphocytes Auto (Unsp spec) [#/Vol] 1.54 10*3/uL 0.83-4.51 [facility] Basophil percentageOrdered B y: Elaine Manning on 07-24-2022 Basophils/100 WBC (Bld) 0.4 % 0-1 [facility] Bilirubin [Mass/Vol] 2.30 mg/dL 0.20-1.00 [facility] Comment on above: For patients on eltr ombopag therapy, use of Dimension [place] TBIL is not recommended. Chloride [Moles/Vol] 108 mmol/L 98-107 [facility] Eosinophils/100 WBC (Bld) 4.9 % 0-5 [facility] Glucose [Mass/Vol] 99 mg/dL 74-106 [facility] Neutrophils (Bld) [#/Vol] 2.9 10*3/uL 2.0-7.7 [facility] Neutrophils/100 WBC (Bld) 51.3 % 47-70 [facility] Potassium [Moles/Vol] 4.3 mmol/L 3.5-5.1 [facility] Protein [Mass/Vol] 6.8 g/dL 6.4-8.2 [facility] Sodium [Moles/Vol] 141 mmol/L 136-145 [facility] WBC (Bld) [#/Vol] 5.7 10*3/uL 4.4-11.0 [facility] Bilirubin Test strip Ql (U)O rdered By: Ealine Manning on 07-24-2022 Bilirubin Ql (U) Negative Negative [facility] Blood erythrocytes count (nu mber/volume)Ordered By: Elaine Manning on 07-24-2022 RBC (Bld) [#/Vol] 4.57 10*6/uL 4.6-6.2 [facility] Blood hemoglobin measurement (mass/volume)Ordered By: Elaine Manning on 07-24-2022 Hemoglobin (Bld) [Mass/Vol] 14.6 g/dL 13.0-16.5 [facility] Blood lymphocytes/100 leukoc ytesOrdered By: Elaine Manning on 07-24-2022 Lymphocytes/100 WBC (Bld) 27.2 % 19-41 [facility] Blood monocytes/100 leukocyt esOrdered By: Elainecaleb Manning on 07-24-2022 Monocytes/100 WBC (Bld) 15.7 % 0-10 [facility] Blood platelet mean volumeOr dered By: Elaine Manning on 07-24-2022 Platelet mean volume (Bld) [Entitic vol] 9.0 fL 6.2-12.0 [facility] Cytology report of Body flui d Cyto stainOrdered By: Elaine Manning on 07-24-2022 Cytology report Cyto stain Doc (Body fld) SEE PATHOLOGY REPORT [facility] Comment on above: Specimen submitted t o Anatomical Pathology Department for testing. Determination of erythrocyte mean corpuscular volume (MCV)Ordered By: Elaine Manning on 07-24-2022 MCV (RBC) [Entitic vol] 96.3 fL 80-94 [facility] Erythrocyte sedimentation ra teOrdered By: Elaine Manning on 07-24-2022 ESR (Bld) [Velocity] 11 mm/h 0-20 [facility] Hematocrit Auto (Bld) [Volum e fraction]Ordered By: Elainecaleb Manning on 07-24-2022 Hematocrit (Bld) [Volume fraction] 44.0 % 40-54 [facility] Ketones Test strip Ql (U)Ord ered By: Elainecaleb Manning on 07-24-2022 Ketones Ql (U) 5 mg/dl Negative [facility] Laboratory - Chemistry and C hemistry - challengeOrdered By: Elaine Manning on 07-24-2022 ALP [Catalytic activity/Vol] 102 U/L 45-117 [facility] ALT [Catalytic activity/Vol] 30 U/L 16-61 [facility] CO2 [Moles/Vol] 30.0 mmol/L 21.0-32.0 [facility] Globulin (S) [Mass/Vol] 3.0 g/dL 2.2-4.2 [facility] Urea nitrogen/Creatinine [Mass ratio] 34.7 mg/mg 10-20 [facility] Laboratory - Hematology and Cell countsOrdered By: Elaine Manning on 07-24-2022 Erythrocyte distribution width (RBC) [Entitic vol] 49.3 fL 35.1-43.9 [facility] Erythrocyte distribution width (RBC) [Ratio] 13.9 % 11.6-14.6 [facility] Immature granulocytes/100 WBC (Bld) 0.500 % 0.0-0.9 [facility] Comment on above: IG% - Immature Granu locytes (promyelocytes, myelocytes and metamyelocytes) > 1% indicates that a LEFT SHIFT is Present. MCH (RBC) [Entitic mass] 31.9 pg 27.0-32.0 [facility] Nucleated RBC/100 WBC (Bld) [Ratio] 0 % 0-5 [facility] MCHC Auto (RBC) [Mass/Vol]Or dered By: Elaine Statmaroulos on 07-24-2022 MCHC (RBC) [Mass/Vol] 33.2 g/dL 32-36 [facility] Nitrite Test strip Ql (U)Ord ered By: Elaine Alvarengaos on 07-24-2022 Nitrite Ql (U) Negative Negative [facility] No Panel InformationOrdered By: Elaine Statmaroullópez on 07-24-2022 Estimated GFR (MDRD) Amer 93 mL/min >60 [facility] Comment on above: GFR Calc Estimated GFR (MDRD) Non-Af Amer 76 mL/min >60 [facility] Comment on above: Non- GFR Calc Platelets bldOrdered By: Marvin proctor Statmaroulos on 07-24-2022 Platelets (Bld) [#/Vol] 196 10*3/uL 150-450 [facility] Protein Test strip Ql (U)Ord ered By: Elaine Statmaroulos on 07-24-2022 Protein Ql (U) 100 mg/dl Negative [facility] Serum or plasma albumin zena urement (mass/volume)Ordered By: Elaine Manning on 07-24-2022 Albumin [Mass/Vol] 3.8 g/dL 3.2-5.0 [facility] Serum or plasma albumin/glob ulin mass ratioOrdered By: Elaine Manning on 07-24-2022 Albumin/Globulin [Mass ratio] 1.3 {ratio} 0.9-2.4 [facility] Serum or plasma calcium zena urement (mass/volume)Ordered By: Elaine Manning on 07-24-2022 Calcium [Mass/Vol] 9.5 mg/dL 8.5-10.1 [facility] Serum or plasma creatinine m easurement (mass/volume)Ordered By: Elaine Manning on 07-24-2022 Creatinine [Mass/Vol] 1.01 mg/dL 0.70-1.30 [facility] Comment on above: The validity of the calculated GFR & GFRAA in patients over 70 years has not been determined. Clinical correlation is essential. Serum or plasma urea nitroge n measurement (mass/volume)Ordered By: Elaine Manning on 07-24-2022 Urea nitrogen [Mass/Vol] 35 mg/dL 7-18 [facility] Thin prep Papanicolaou smear with manual screeningOrdered By: Elaine Manning on 07-24-2022 Thin prep Papanicolaou smear with manual screening 29 U/L 15-37 [facility] Thin prep Papanicolaou smear with manual screening 3 5-15 [facility] Urine blood detectionOrdered By: Elaine Manning on 07-24-2022 RBC Ql (U) 250 /ul Negative [facility] Urine clarityOrdered By: Marvin Manning on 07-24-2022 Clarity (U) Cloudy Clear [facility] Urine color determinationOrd ered By: Elaine Manning on 07-24-2022 Color (U) Brown Yellow [facility] Urine glucose detectionOrder ed By: Elaine Manning on 07-24-2022 Glucose Ql (U) Normal mg/dl Normal [facility] Urine leukocyte esterase det ection by dipstickOrdered By: Elaine Manning on 07-24-2022 Leukocyte esterase Test strip Ql (U) 100 /ul Negative [facility] Urine pHOrdered By: Elaine Statsusan on 07-24-2022 pH (U) 5.0 [pH] 5.0 - 8.0 [facility] Urine specific gravity measu rementOrdered By: [facility] Kerri on 07-24-2022 Specific gravity (U) [Rel density] 1.020 1.002-1.03 0 [facility] Urobilinogen Auto test strip Ql (U)Ordered By: Elaine Manning on 07-24-2022 Urobilinogen Ql (U) 4 mg/dl Normal [facility] Basophil percentageon 2021 Bilirubin [Mass/Vol] 3.20 mg/dL 0.20-1.00 [facility] Work Phone: Comment on above: For patients on eltr ombopag therapy, use of Dimension [place] TBIL is not recommended. Chloride [Moles/Vol] 109 mmol/L 98-107 [facility] Work Phone: Glucose [Mass/Vol] 93 mg/dL 74-106 [facility] Work Phone: Potassium [Moles/Vol] 4.0 mmol/L 3.5-5.1 [facility] Work Phone: Protein [Mass/Vol] 6.6 g/dL 6.4-8.2 [facility] Work Phone: Sodium [Moles/Vol] 142 mmol/L 136-145 [facility] Work Phone: Laboratory - Chemistry and C hemistry - challengeon 03-31-2022 ALP [Catalytic activity/Vol] 88 U/L 45-117 [facility] Work Phone: ALT [Catalytic activity/Vol] 35 U/L 16-61 [facility] Work Phone: CO2 [Moles/Vol] 26.0 mmol/L 21.0-32.0 [facility] Work Phone: Globulin (S) [Mass/Vol] 2.8 g/dL 2.2-4.2 [facility] Work Phone: Urea nitrogen/Creatinine [Mass ratio] 36.5 mg/mg 10-20 [facility] Work Phone: No Panel Informationon 03-31 Estimated GFR (MDRD) Amer 98 mL/min >60 [facility] Work Phone: Comment on above: GFR Calc Estimated GFR (MDRD) Non-Af Amer 81 mL/min >60 [facility] Work Phone: Comment on above: Non- GFR Calc Prostate Specific Antigen Screen 0.74 ng/mL 0.00-4.00 [facility] Work Phone: Comment on above: This test was perfor med using the TPSA assay method for [employer] chemistry system. Values obtained with differentassay methods cannot be used interchangably.When changing PSA assays in the course of monitoring apatient, additional sequential testing should be carriedout to confirm baseline values. Serum or plasma albumin zena urement (mass/volume)on 03-31-2022 Albumin [Mass/Vol] 3.8 g/dL 3.2-5.0 [facility] Work Phone: Serum or plasma albumin/glob ulin mass ratioon 03-31-2022 Albumin/Globulin [Mass ratio] 1.4 {ratio} 0.9-2.4 [facility] Work Phone: Serum or plasma calcium zena urement (mass/volume)on 03-31-2022 Calcium [Mass/Vol] 9.5 mg/dL 8.5-10.1 [facility] Work Phone: Serum or plasma creatinine m easurement (mass/volume)on 03-31-2022 Creatinine [Mass/Vol] 0.96 mg/dL 0.70-1.30 [facility] Work Phone: Comment on above: The validity of the calculated GFR & GFRAA in patients over 70 years has not been determined. Clinical correlation is essential. Serum or plasma urea nitroge n measurement (mass/volume)on 03-31-2022 Urea nitrogen [Mass/Vol] 35 mg/dL 7-18 [facility] Work Phone: Thin prep Papanicolaou smear with manual screeningon 03-31-2022 Thin prep Papanicolaou smear with manual screening 57 U/L 15-37 [facility] Work Phone: Thin prep Papanicolaou smear with manual screening 7 5-15 [facility] Work Phone: Basophil percentageon 2021 Bilirubin [Mass/Vol] 2.20 mg/dL 0.20-1.00 [facility] Work Phone: Comment on above: For patients on eltr ombopag therapy, use of Dimension [place] TBIL is not recommended. Cholesterol [Mass/Vol] 113 mg/dL <200 [facility] Work Phone: Comment on above: <200 mg/dL Desirable 200-240 mg/dL Borderline >240 mg/dL High Risk Protein [Mass/Vol] 6.8 g/dL 6.4-8.2 [facility] Work Phone: Triglyceride [Mass/Vol] 45 mg/dL <199 [facility] Work Phone: Comment on above: The drugs N-Acetylcy steine and Metamizole may falsely depress this assay.Serum Triglycerides Reference Interval Normal <150 mg/dL Borderline high 150 - 199 mg/dL High 200 - 499 mg/dL Very High > or = 500 mg/dL Direct bilirubinon 2 Bilirubin.direct [Mass/Vol] 0.32 mg/dL 0.00-0.30 [facility] Work Phone: Laboratory - Chemistry and C hemistry - challengeon 03-03-2022 ALP [Catalytic activity/Vol] 103 U/L 45-117 [facility] Work Phone: ALT [Catalytic activity/Vol] 29 U/L 16-61 [facility] Work Phone: Globulin (S) [Mass/Vol] 3.1 g/dL 2.2-4.2 [facility] Work Phone: Serum or plasma albumin zena urement (mass/volume)on 03-03-2022 Albumin [Mass/Vol] 3.7 g/dL 3.2-5.0 [facility] Work Phone: Serum or plasma cholesterol in HDL measurement (mass/volume)on 03-03-2022 Cholesterol in HDL [Mass/Vol] 56 mg/dL >40 [facility] Work Phone: Comment on above: The drugs N-Acetylcy steine and Metamizole may falsely depress this assay. Reference Range HDL <40 mg/dL Low HDL Cholesterol HDL >or= 60 mg/dL High HDL Cholesterol Serum or plasma cholesterol in VLDL measurement (mass/volume)on 03-03-2022 Cholesterol in VLDL [Mass/Vol] 9 mg/dL 5-40 [facility] Work Phone: Serum or plasma low density lipoprotein (LDL) cholesterol measurement (mass/volume)on 03-03-2022 Cholesterol in LDL [Mass/Vol] 48 mg/dL 0-130 [facility] Work Phone: Thin prep Papanicolaou smear with manual screeningon 03-03-2022 Thin prep Papanicolaou smear with manual screening 26 U/L 15-37 [facility] Work Phone: Office Visiton 04-01-2017 Documentation of current medications (procedure) Done Invalid Interpretation Code [facility] Work Phone: Fall risk assessment No [facility] Work Phone: Protein mass conc Done [facility] Work Phone: Chart Maintenanceon 03-29-20 17 Left ventricular Ejection fraction 50 % [facility] Work Phone: Append: CR Referralon 2016 Clinical consultation report (record artifact) [id number]^12/04/2016 [facility] Work Phone: Lab Report: Lipid Profileon 12-08-2016 Cholesterol 83 mg/dL 200 [facility] Work Phone: HDL Cholesterol 39 mg/dL Low [facility] Work Phone: [phone] LDL Cholesterol 32 mg/dL 0-130 [facility] Work Phone: [phone] Triglyceride 58 mg/dL [facility] Work Phone: [phone] very low density lipoproteins 12 mg/dL 5-40 [facility] Work Phone: [phone] Lab Report: Liver Profileon 12-08-2016 Alanine aminotransferase (ALT) 49 U/L 12-78 [facility] Work Phone: [phone] Albumin 3.8 g/dL 3.4-5.0 [facility] Work Phone: [phone] Alkaline phosphatase (ALP) 113 U/L Invalid Interpretation Code 45-117 [facility] Work Phone: [phone] ALP (Bld) [Catalytic activity/Vol] 113 U/L 45-117 [facility] Work Phone: [phone] Aspartate aminotransferase (AST) 40 U/L High 15-37 [facility] Work Phone: [phone] Bilirubin (direct) 0.19 mg/dL 0.00-0.30 [facility] Work Phone: [phone] Bilirubin (total) 2.60 mg/dL High 0.20-1.00 [facility] Work Phone: [phone] Globulin 3.4 g/dL Invalid Interpretation Code 2.3-3.5 [facility] Work Phone: [phone] Globulin (S) [Mass/Vol] 3.4 g/dL 2.3-3.5 [facility] Work Phone: [phone] Protein 7.2 g/dL 6.4-8.2 [facility] Work Phone: [phone] Office Visit: [facility] 12-05-19 17 Documentation of current medications (procedure) Done Invalid Interpretation Code [facility] Work Phone: [phone] Fall risk assessment No Invalid Interpretation Code [facility] Work Phone: [phone] Protein mass conc Done [facility] Work Phone: [phone] Tobacco smoking status NHIS Never smoker [facility] Work Phone: [phone] Tobacco use CPHS Never smoker Invalid Interpretation Code [facility] Work Phone: [phone] Clinical Lists Update: 11-19-2016 Anion gap 4 mmol/L Low [facility] Work Phone: [phone] Anion gap molar conc 4 mmol/L [facility] Work Phone: [phone] BUN/Creatinine Ratio 27.2 mg/mg [facility] Work Phone: [phone] Calcium 8.3 mg/dL Low [facility] Work Phone: [phone] Chloride 106 mmol/L [facility] Work Phone: [phone] CO2 28.0 mmol/L Invalid Interpretation Code [facility] Work Phone: [phone] CO2 ppres (BldV) 28.0 mmol/L [facility] Work Phone: [phone] Creatinine 0.92 mg/dL [facility] Work Phone: [phone] Glucose 95 mg/dL Invalid Interpretation Code [facility] Work Phone: [phone] Glucose mass conc 95 mg/dL [facility] Work Phone: [phone] Potassium 3.9 mmol/L [facility] Work Phone: [phone] Sodium 138 mmol/L [facility] Work Phone: [phone] Urea nitrogen 25 mg/dL High [facility] Work Phone: [phone] Clinical Lists Update: 11-18-2016 Cholesterol 145 mg/dL Invalid Interpretation Code [facility] Work Phone: [phone] Erythrocyte distribution width Ratio (RBC) 14.5 % [facility] Work Phone: [phone] Erythrocytes (RBC) 4.06 10*6/uL [facility] Work Phone: [phone] HDL Cholesterol 48 mg/dL Invalid Interpretation Code [facility] Work Phone: [phone] Hematocrit (HCT) 38.0 % Low [facility] Work Phone: [phone] Hematocrit Volume Fraction (Bld) 38.0 % Low [facility] Work [phone] Hemoglobin (HGB) 12.8 g/dL Low [facility] Work Phone: [phone] LDL Cholesterol 83 mg/dL Invalid Interpretation Code [facility] Work Phone: [phone] MCH 31.5 pg Invalid Interpretation Code [facility] Work [phone] MCH Entitic mass (RBC) 31.5 pg [facility] Work Phone: [phone] MCHC 33.7 g/dL Invalid Interpretation Code [facility] Work Phone: [phone] MCHC mass conc (RBC) 33.7 g/dL [facility] Work Phone: [phone] MCV 93.6 fL Invalid Interpretation Code [facility] Work Phone: [phone] MCV Entitic volume (RBC) 93.6 fL [facility] Work Phone: [phone] Platelet mean volume Entitic volume (Bld) 9.1 fL [facility] Work Phone: [phone] Platelets 133 10*3/mm3 Low [facility] Work Phone: [phone] Platelets #/vol (Bld) 133 10*3/mm3 Low [facility] Work Phone: [phone] PMV by Gallo 9.1 fL Invalid Interpretation Code [facility] Work Phone: [phone] RBC #/vol (Bld) 4.06 10*6/uL Low [facility] Work Phone: [phone] RDW-CA 14.5 % Invalid Interpretation Code [facility] Work Phone: [phone] Triglyceride 72 mg/dL Invalid Interpretation Code [facility] Work Phone: [phone] very low density lipoproteins 14 mg/dL Invalid Interpretation Code [facility] Work Phone: [phone] WBC #/vol (Bld) 5.8 10*3/uL [facility] Work Phone: [phone] WBC (Leukocytes) 5.8 10*3/uL Invalid Interpretation Code [facility] Work Phone: [phone] Clinical Lists Update: Prelo admission discharge rn 11-17-2016 aPTT 26.9 s [facility] Work Phone: [phone] Coagulation tissue factor induced in platelet poor plasma 13.2 s [facility] Work Phone: [phone] INR Coag RelTime (PPP) 1.0 {INR} [facility] Work Phone: [phone] INR in blood by coagulation 1.0 {INR} Invalid Interpretation Code [facility] Work Phone: [phone] Culture, urine Bacteria identified Cx Nom (U) Positive [facility] Work Phone: Vital Signs Date Time Vital Sign Value Performing Clinician Facility 02-13-2025 10:49-0400 Body height 182.[address] Vincent Rogers MD Work Phone: [facility] 02-13-2025 10:49-0400 Body mass index (BMI) [Ratio] 25.9 kg/m2 Dr. Vincent Rogers MD Work Phone: [facility] 02-13-2025 10:49-0400 Body weight 86.[address] Vincent Rogers MD Work Phone: [facility] 02-13-2025 10:49-0400 Diastolic blood pressure 69 mm[Hg] Dr. Vincent Rogers MD Work Phone: [facility] 02-13-2025 10:49-0400 Heart rate 57 /min Dr. Vincent Rogers MD Work Phone: [facility] 02-13-2025 10:49-0400 Respiratory rate 18 /min Dr. Vincent Rogers MD Work Phone: [facility] 02-13-2025 10:49-0400 SaO2% (BldA) [Mass fraction] 98 % Dr. Vincent Rogers MD Work Phone: [facility] 02-13-2025 10:49-0400 Systolic blood pressure 111 mm[Hg] Dr. Vincent Rogers MD Work Phone: [facility] 10-04-2023 09:02-0400 Diastolic Blood Pressure Non-Invasive 70 mm[Hg] DR JESSE MARIA MD [facility] 10-04-2023 09:02-0400 Heart rate 53 /min DR JESSE MARIA MD [facility] 10-04-2023 09:02-0400 Respiratory rate 15 /min DR JESSE MARIA MD [facility] 10-04-2023 09:02-0400 Systolic Blood Pressure Non-Invasive 117 mm[Hg] DR JESSE MARIA MD [facility] 10-04-2023 08:58-0400 Diastolic Blood Pressure Non-Invasive 74 mm[Hg] DR JESSE MARIA MD [facility] 10-04-2023 08:58-0400 Heart rate 54 /min DR JESSE MARIA MD [facility] 10-04-2023 08:58-0400 Respiratory rate 12 /min DR JESSE MARIA MD [facility] 10-04-2023 08:58-0400 Systolic Blood Pressure Non-Invasive 109 mm[Hg] DR JESSE MARIA MD [facility] 10-04-2023 08:53-0400 Diastolic Blood Pressure Non-Invasive 58 mm[Hg] DR JESSE MARIA MD [facility] 10-04-2023 08:53-0400 Heart rate 57 /min DR JESSE MARIA MD [facility] 10-04-2023 08:53-0400 Respiratory rate 14 /min DR JESSE MARIA MD [facility] 10-04-2023 08:53-0400 Systolic Blood Pressure Non-Invasive 103 mm[Hg] DR JESSE MARIA MD [facility] 10-04-2023 08:47-0400 Heart rate 54 /min DR JESSE MARIA MD [facility] 10-04-2023 08:42-0400 Body temperature 98.06 [degF] DR JESSE MARIA MD [address] [place] [address] 10-04-2023 08:42-0400 Heart rate 68 /min DR JESSE MARIA MD [address] [place] [address] 10-04-2023 08:35-0400 Heart rate 64 /min DR JESSE MARIA MD [address] [place] [address] 10-04-2023 08:35-0400 Respiratory Rate - Anes 22 br/min DR JESSE MARIA MD [facility] 10-04-2023 08:30-0400 Respiratory Rate - Anes 0 br/min DR JESSE MARIA MD [facility] 10-04-2023 07:50-0400 Body height 180.[address] JESSE MARIA MD [facility] 10-04-2023 07:50-0400 Body temperature 97.88 [degF] DR JESSE MARIA MD [facility] 10-04-2023 07:50-0400 Body weight 86.[address] JESSE MARIA MD [facility] 10-04-2023 07:45-0400 Body height 180.[address] JESSE MARIA MD [address] [place] [address] 08-12-2022 14:15-0500 Body temperature 97.6 [degF] [facility] 08-12-2022 14:15-0500 Diastolic blood pressure 76 mm[Hg] [facility] 08-12-2022 14:15-0500 Heart rate 61 /min [facility] 08-12-2022 14:15-0500 Respiratory rate 16 /min [facility] 08-12-2022 14:15-0500 SaO2% (BldA) [Mass fraction] 98 % [facility] 08-12-2022 14:15-0500 Systolic blood pressure 124 mm[Hg] [facility] 08-12-2022 11:19-0500 Body height 182.[address] [facility] 08-12-2022 11:19-0500 Body mass index (BMI) [Ratio] 25.7 kg/m2 [facility] 08-12-2022 11:19-0500 Body weight [address] [facility] 08-07-2022 09:51-0500 Diastolic Blood Pressure Non-Invasive [address] JESSE MARIA MD [facility] 08-07-2022 09:51-0500 Heart rate 61 /min DR JESSE MARIA MD [facility] 08-07-2022 09:51-0500 Respiratory rate 18 /min DR JESSE MARIA MD [facility] 08-07-2022 09:51-0500 Systolic Blood Pressure Non-Invasive [address] JESSE MARIA MD [facility] 08-07-2022 09:41-0500 Diastolic Blood Pressure Non-Invasive [address] JESSE MARIA MD [facility] 08-07-2022 09:41-0500 Heart rate 61 /min DR JESSE MARIA MD [facility] 08-07-2022 09:41-0500 Respiratory rate 16 /min DR JESSE MARIA MD [facility] 08-07-2022 09:41-0500 Systolic Blood Pressure Non-Invasive [address] JESSE MARIA MD [facility] 08-07-2022 09:31-0500 Diastolic Blood Pressure Non-Invasive [address] JESSE MARIA MD [facility] 08-07-2022 09:31-0500 Heart rate 61 /min DR JESSE MARIA MD [facility] 08-07-2022 09:31-0500 Respiratory rate 12 /min DR JESSE MARIA MD [facility] 08-07-2022 09:31-0500 Systolic Blood Pressure Non-Invasive [address] JESSE MARIA MD [facility] 08-07-2022 09:20-0500 Respiratory Rate - Anes 21 br/min DR JESSE MARIA MD [facility] 08-07-2022 09:15-0500 Respiratory Rate - Anes 27 br/min DR JESSE MARIA MD [facility] 08-07-2022 09:10-0500 Respiratory Rate - Anes 27 br/min DR JESSE MARIA MD [facility] 08-07-2022 07:59-0500 Body height 180.[address] JESSE MARIA MD [facility] 08-07-2022 07:59-0500 Body temperature 96.8 [degF] DR JESSE MARIA MD [facility] 08-07-2022 07:59-0500 Body weight 86.[address] JESSE MARIA MD [facility] 08-07-2022 07:59-0500 Heart rate 78 /min DR JESSE MARIA MD [facility] 01-27-2022 08:33-0400 Body height 182.[address] Jean-Pierre Wright Work Phone: [facility] Work Phone: 01-27-2022 08:33-0400 Body mass index (BMI) [Ratio] 25.6 kg/m2 Dr. Jean-Pierre Wright Work Phone: [facility] Work Phone: 01-27-2022 08:33-0400 Body weight 85.[address] Jean-Pierre Wright Work Phone: [facility] Work Phone: 01-27-2022 08:33-0400 Diastolic blood pressure 57 mm[Hg] Dr. Jean-Pierre Wright Work Phone: [facility] Work Phone: 01-27-2022 08:33-0400 Heart rate 54 /min Dr. Jean-Pierre Wright Work Phone: [facility] Work Phone: 01-27-2022 08:33-0400 Respiratory rate 14 /min Dr. Jean-Pierre Wright Work Phone: [facility] Work Phone: 01-27-2022 08:33-0400 Systolic blood pressure 102 mm[Hg] Dr. Jean-Pierre Wright Work Phone: [facility] Work Phone: 04-01-2017 12:37-0400 BMI (Body Mass Index) 25[facility]9 [facility] Work Phone: 04-01-2017 12:37-0400 BP Diastolic 62 mm[Hg] Fabiana Stacy [facility] Work Phone: 04-01-2017 12:37-0400 BP Systolic 96 mm[Hg] Fabiana Regis [facility] Work Phone: 04-01-2017 12:37-0400 Height 182.88 cm [facility] Work Phone: 04-01-2017 12:37-0400 Pulse (Heart Rate) 58 /min [facility] Work Phone: 04-01-2017 12:37-0400 Respiratory Rate 16 /min [facility] Work Phone: 04-01-2017 12:37-0400 Weight 86.64 kg [facility] Work Phone: 12-04-2016 14:04-0400 BMI (Body Mass Index) 27.01 kg/m2 [facility] Work Phone: 12-04-2016 14:04-0400 Body weight 90.36 kg Alonso Jackson [facility] Work Phone: 12-04-2016 14:04-0400 BP Diastolic 74 mm[Hg] Fabiana Stacy [facility] Work Phone: 12-04-2016 14:04-0400 BP Systolic 110 mm[Hg] Fabiana Stayc [facility] Work Phone: 12-04-2016 14:04-0400 Height 182.88 cm [facility] Work Phone: 12-04-2016 14:04-0400 Pulse (Heart Rate) 60 /min [facility] Work Phone: 12-04-2016 14:04-0400 Respiratory Rate 18 /min [facility] Work Phone: 12-04-2016 14:04-0400 Weight 90.36 kg [facility] Work Phone: Encounters Encounter Date Encounter Type Care Provider Facility Start: 03-13-2025 ambulatory Sushila Armando Facility:[facility] Start: 02-20-2025 End: 02-20-[address] Vincent Rogers MD Work Phone: -Laboratory Start: 02-20-2025 End: 02-20-[address] Sushila Roberts MD -Laboratory Work Phone: Start: 02-20-2025 End: 02-20-2025 ambulatory Sushila Roberts Facility:[facility] Start: 02-13-2025 End: 02-13-[address] Sushila Roberts MD -[facility] Work Phone: Start: 02-13-2025 End: 02-13-[address] Vincent Rogers MD Work Phone: -[facility] Start: 05-25-2024 Encounter for genera l adult medical examination without abnormal findings Vincent Rogers [facility] Start: 05-04-2024 End: 05-04-2024 ambulatory Vincent Rogers Facility:[facility] Start: 04-17-2024 ambulatory Vincent Rogers Facility:[facility] Start: 04-11-2024 ambulatory Sushila Roberts Facility:[facility] Start: 04-11-2024 End: 04-11-2024 ambulatory Jean-Pierre Connors [employer] Facility:[facility] Start: 03-21-2024 End: 03-21-2024 ambulatory Jean-Pierre H Waylon [employer] Facility:[facility] Start: 10-04-2023 End: 10-04-[address] JESSE MARIA MD Facility:[facility] Start: 10-04-2023 End: 10-04-[address] JESSE MARIA MD [facility] Start: 08-16-2023 End: 08-16-2023 ambulatory [facility] Work Phone: Start: 08-16-2023 End: 08-16-2023 Patient encounter procedure [facility] [place] Work Phone: Start: 08-12-2022 End: 08-12-2022 Admission to same day surgery center [facility] Start: 08-12-2022 End: 08-12-2022 ambulatory [facility] Work Phone: Start: 08-07-2022 End: 08-07-[address] JESSE MARIA MD [facility] Start: 07-24-2022 End: 07-24-2022 ambulatory [facility] Work Phone: Start: 07-24-2022 End: 07-24-2022 Patient encounter procedure [facility] Start: 03-31-2022 End: 03-31-[address] Jean-Pierre Wright Work Phone: [facility] Work Phone: Start: 03-31-2022 End: 03-31-[address] Jean-Pierre [facility] Phone[facility] Start: 03-03-2022 End: 03-03-[address] Jean-Pierre Wright Work Phone: [facility] Start: 01-27-2022 End: 01-27-[address] Jean-Pierre Wright Work Phone: [facility] Procedures Date Procedure Procedure Detail Performing Clinician Start: 08-16-2023 Plain chest X-ray Start: 08-12-2022 Circumcision Start: 08-12-2022 Cystoscopy Start: 03-31-2022 Radiologic examinati on of knee Dr. Jean-Pierre Wright Work Phone: Start: 04-01-2017 End: 04-01-2017 SUSAN Goldberg MD Work Phone: Start: 04-01-2017 End: 04-01-2017 Follow Up Appt 6 months Ke Goldberg MD Work Phone: Start: 12-04-2016 End: 12-04-2016 Documentation of current medications Alonso Jackson Start: 12-04-2016 End: 12-08-2016 *Hepatic Function Panel Lauren woodard PA-C Work Phone: Start: 12-04-2016 End: 12-04-2016 DJN Lauren Horton PA-C Work Phone: Start: 12-04-2016 End: 12-04-2016 Follow Up Appt 3 months Lauren woodard PA-C Work Phone: Start: 12-04-2016 End: 12-08-2016 Lipid panel [AGGREGATE] Lauren woodard PA-C Work Phone: Start: 12-04-2016 End: 02-08-2017 Referral to laminate floor installer Lauren lópez PA-C Work Phone: Start: 11-26-2016 End: 12-04-2016 Referral to laminate floor installer Ke Goldberg MD Work Phone: Start: 11-24-2016 Placement of stent i n coronary artery Status post cardiac stent placement Fabiana Stacy Start: 10-24-2016 History of placement of stent for coronary artery disease History of coronary artery stent placement Dr. Sushila Roberts MD Comment on above: PCI-ALEXANDRU-Mid LAD 3.5 x 20 mm Synergy 11/17/2016 Start: 07-26-[address] Ayden MARIA MD Appendectomy DR JESSE PAL MD Colonoscopy DR JESSE PAL MD Tonsillectomy DR JESSE NARANJO MD Urine culture Urine culture Plan of Treatment Date Care Activity Detail Author Start: 08-12-2022 Patient discharge [facility] Start: 08-12-2022 Ambulation without limitation [facility] Start: 08-12-2022 Medication education [facility] Start: 08-12-2022 Taking patient vital signs [facility] Start: 08-12-2022 [facility] Start: 10-04-2017 End: 10-04-2017 Appointment Appointment [facility] Work Phone: Start: 06-11-2017 End: 12-12-2016 *Hepatic Function Panel *Hepatic Function Panel [facility] Work Phone: Start: 06-11-2017 End: 12-12-2016 Lipid panel [AGGREGATE] *Lipid Profile CC PCP [facility] Work Phone: Start: 04-01-2017 End: 04-01-2017 Appointment Appointment [facility] Work Phone: Start: 04-01-2017 End: 04-01-2017 Appointment Appointment [facility] Work Phone: Start: 04-01-2017 End: 04-01-2017 SUSAN DAVIS [facility] Work Phone: Start: 04-01-2017 End: 04-01-2017 Follow Up Appt 6 months Follow Up Appt 6 months [facility] Work Phone: Start: 12-04-2016 End: 12-04-2016 Appointment Appointment [facility] Work Phone: Start: 12-04-2016 End: 12-04-2016 Appointment Appointment [facility] Work Phone: Start: 12-04-2016 End: 12-08-2016 *Hepatic Function Panel *Hepatic Function Panel [facility] Work Phone: Start: 12-04-2016 End: 01-04-2017 Cardiac Rehab [facility] [address] [place], [address] [facility] Work Phone: Start: 12-04-2016 End: 12-04-2016 SUSAN DAVIS [facility] Work Phone: Start: 12-04-2016 End: 12-04-2016 Follow Up Appt 3 months Follow Up Appt 3 months [facility] Work Phone: Start: 12-04-2016 End: 12-08-2016 Lipid panel [AGGREGATE] *Lipid Profile CC PCP [facility] Work Phone: Start: 11-26-2016 End: 12-04-2016 Cardiac Rehab [facility] [address] [place], [address] [facility] Work Phone: Comprehensive metabo lic 1999 panel - Serum or Plasma [facility] Lipid 1996 panel - S leonard or Plasma [facility] Patient Education HEART%20HEALTHY%20DIET [facility] Work Phone: Patient referral [facility] Work Phone: Heart [facility] Payers Date Payer Category Payer Self-pay [id number] 2016 Medicare [id number] 1945 Unknown [id number] 2.16.8 [id number] Unknown [id number] 2.16.8 [id number] Unknown [id number] 2.16.8 [id number] Unknown [id number] 2.16.8 [id number] Unknown [id number] 2.16.8 [id number] Unknown [id number] 2.16.8 [id number] Unknown [id number] 2.16.8 [id number] Unknown [id number] 2.16.8 [id number] Unknown [id number] 2.16.8 [id number] Social History Date Type Detail Facility Start: 01-27-2022 End: 03-18-2023 Tobacco smoking status NHIS Unknown if ever smoked [facility] Start: 1945 Sex Assigned At Male A [facility] Tobacco smoking status No Smokin g Status Entered [facility] Start: 03-18-2023 Tobacco smoking stat us NHIS Ex-smoker (finding) [facility] Goals Date Patient Goal Desired Activity /State Functional Status Date Assessment Result Facility 10-04-2023 Functional Status Awake [facility] 10-04-2023 Functional Status Maintained [facility] 08-07-2022 Functional Status Maintained [facility] 08-07-2022 Functional Status [facility] Mental Status Date Assessment Result Facility 10-04-2023 Mental Status Oriented x 4 [facility] 08-12-2022 Cognitive function Voice/Name [facility] Work Phone: 08-07-2022 Mental Status Orientation Oriented x 4 [facility] 08-07-2022 Mental Status [facility] Clinical Notes 10-24-2016 to 02-13-2025 Note Date & Type Note Facility 02-13-2025 Evaluation note Diagnosis Onset Date Resolution Coronary artery disease chronic February 13, 2025 10:38am Dyslipidemia chronic February 13 10:38am Essential hypertension chronic February 13, 2025 10:38am History of coronary artery stent placement October, chronic February 13, 2025 10:38am [facility] Work Phone: 1(499) 268-686107-22-2025 Progress [facility] [address] [place] [address] OFFICE VISIT Date of Service: 02/13/25 MR#: [id number] Acct: [id number] Name: VALERIA EMERY Rep #: [id number] : 1945 Provider: Dr. Terry Roberts MD Age/Sex: 80/M Location: [facility] Status: Signed HPI HPI History of Present Illness Details: This pleasant gentleman has had an anterior VT in 2016, treated with primary percutaneous intervention with a drug-eluting stent. Here for follow-up visit. Patient keeps physically very active. He works out 3 days a week. Denies any chest pains or shortness of breath either at rest or with exertion. No palpitations. No orthopnea or PND. No ankle edema. Tolerating his atorvastatin well. Denies any muscle aches or pains. Intake Vital Signs 03/21/24 09:20 02/13/25 10:49 Height 6 ft 6 ft Weight: 191 lb BMI 25.9 BP 111/69 Blood Pressure Location Lt brachial Position Sitting Respiration 18 Pulse 57 L Pulse Source Monitor Pulse Oximetry (%) 98 Oxygen Delivery Method room air Intake Visit Reasons: 1 Y FU Biometrics Consultant Required: No Accompanied by: Self Is patient in pain?: No Allergies lisinopril Adverse Reaction (Verified 02/13/25 10:50) Dry cough Medications ?Medication ?Instructions ?Recorded ?Confirmed ?Type aspirin 81 mg tablet,delayed 81 mg PO DAILY@0800 #30 t abs 11/19/16 02/13/25 Rx release latanoprost 0.005 % eye drops 1 drp EACH EYE QHS GLAUC AQUILES 02/28/21 02/13/25 History ascorbic acid (vitamin C) 500 mg 500 mg PO DAILY 01/2702/13/25 History tablet cholecalciferol (vitamin D3) 125 125 mcg PO DAILY 12/1402/13/25 History mcg (5,000 unit) tablet vxpgyyct-eyb-tetay 120 mcg-lutein 1 tab PO DAILY 01/2702/13/25 History 150 mcg-herb 50 mg chewable tablet (Alive Men's 50 Plus Multivitamin) zinc sulfate 50 mg zinc (220 mg) 50 mg PO DAILY 02/13/25 History capsule losartan 25 mg tablet 25 mg PO DAILY #90 tabs 01/2402/13/25 Rx atorvastatin 40 mg tablet 40 mg PO QHS #90 tabs 02/13/25 Rx metoprolol tartrate 25 mg tablet 12.5 mg (1/2 x 25 mg) PO BID #90 01/22/25 02/13/25 Rx TABLETS Have you fallen in the past year?: No PFSH Medical History Wears glasses Alcohol use Arthritis High cholesterol History of echocardiogram History of stress test Hypertension Cardiology follow-up encounter History of rheumatic fever Essential hypertension Former smoker Myocardial infarct Pneumonia due to COVID-19 virus Pneumonia due to 2019-nCoV Syncope Hyperlipidemia Old anterior myocardial infarction Atherosclerosis of coronary artery of [place] heart without angina pectoris Surgical History Hx of colonoscopy (~10/2023) History of esophagogastroduodenoscopy (EGD) History of appendectomy History of coronary artery stent placement History of coronary artery stent placement (~11/17/16) Family History Mother Breast cancer Social History Smoking Status: Former smoker how long ago did patient quit smokin alcohol intake: current alcohol intake frequency: 0-2 drinks per day Alcohol type: beer substance use type: does not use caffeine: Yes Type: coffee Number of servings: 1 ROS Const Const: Negative for fatigue or weakness ENT ENT: Negative for dizziness or balance problems Cardio Chest Pain: No Palpitations: No Edema: None Muscle aches with walking: None Resp Respiratory: Negative for SOB with activity, SOB at rest or SOB orthopnea\SOB lying down GI GI: Negative nausea, vomiting or heartburn Musc Musc: Negative for muscle weakness or balance problems Neuro Neuro: Negative for dizziness, lightheadedness, near syncope, syncope or weakness Endo Endo: Negative for fatigue Cardiology Exam Const Appearance: comfortable and no acute distress Nutritional Appearance: well nourished Neck Neck: no JVD Carotids: Negative bruit Chest Auscultation: Bilateral: Clear to Auscultation Cardio Rate: regular rate Rhythm: regular rhythm Heart sounds: S1 normal and S2 normal Neuro General: patient alert, patient awake and patient oriented x3 Extremities Lower Extremity Edema: None: Bilateral Supplemental Info Supplemental Information Labs: LDL Cholesterol 50 mg/dL (0-130) HDL Cholesterol 45 mg/dL (40-) Cholesterol 107 mg/dL (200) Triglycerides 59 mg/dL (-199) Diagnostics: Stress Test Stress Test Nuclear Medicine Chest X-Ray Pulmonary: No Data to Display Past Visits: Cardiology Visit 02/13/25 Assessment and Plan Assessment and Plan (1) Coronary artery disease: Status: Chronic Plan: History of anterior VT. Status post ALEXANDRU to the LAD in 2017. Continue aspirin. Beta-blockers. Risk factor modification. Check echocardiogram. (2) History of coronary artery stent placement: Status: Chronic Comment: PCI-ALEXANDRU-Mid LAD 3.5 x 20 mm Synergy 11/17/2016 Plan: Aspirin. (3) Essential hypertension: Status: Chronic Plan: Losartan and metoprolol. (4) Dyslipidemia: Status: Chronic Plan: Atorvastatin. Check lipid profile. Plan Details Follow Up: 12 Months Coding Level of Care Code Off vis,est,level 4 Diagnoses Coronary artery disease I25.10 History of coronary artery stent placement Z95.5 Essential hypertension I10 Dyslipidemia E78.5 Coding Level of Care Code Off vis,est,level 4 Diagnoses Coronary artery disease I25.10 History of coronary artery stent placement Z95.5 Essential hypertension I10 Dyslipidemia E78.5 Clinical Quality Measures Falls Risk Screening/Assistive Devices Have you fallen in the past year?: No 02/13/25 1113 MD> Date _ Sushila Roberts MD Cosign Signature: Date (if applicable) CC: Dr. Vincent Rogers MD ~ [facility]07-22-2025 Progress note Author Sushila Roberts [facility] Note Date/Time February 13, 2025 11:1 [facility] [address] [place] [address]. [address] [place] [address] OFFICE VISIT Date of Service: 02/13/25 MR#: [id number] Acct: [id number] Name: VALERIA EMERY Rep #: [id number] : 1945 Provider: Dr. Terry Roberts MD Age/Sex: 80/M Location: [facility] Status: Signed HPI HPI History of Present Illness Details: This pleasant gentleman has had an anterior VT in 2016, treated with primary percutaneous intervention with a drug-eluting stent. Here for follow-up visit. Patient keeps physically very active. He works out 3 days a week. Denies any chest pains or shortness of breath either at rest or with exertion. No palpitations. No orthopnea or PND. No ankle edema. Tolerating his atorvastatin well. Denies any muscle aches or pains. Intake Vital Signs 03/21/24 09:20 02/13/25 10:49 Height 6 ft 6 ft Weight: 191 lb BMI 25.9 BP 111/69 Blood Pressure Location Lt brachial Position Sitting Respiration 18 Pulse 57 L Pulse Source Monitor Pulse Oximetry (%) 98 Oxygen Delivery Method room air Intake Visit Reasons: 1 Y FU Biometrics Consultant Required: No Accompanied by: Self Is patient in pain?: No Allergies lisinopril Adverse Reaction (Verified 02/13/25 10:50) Dry cough Medications ?Medication ?Instructions ?Recorded ?Confirmed ?Type aspirin 81 mg tablet,delayed 81 mg PO DAILY@0800 #30 t abs 11/19/16 02/13/25 Rx release latanoprost 0.005 % eye drops 1 drp EACH EYE QHS GLAUC AQUILES 02/28/21 02/13/25 History ascorbic acid (vitamin C) 500 mg 500 mg PO DAILY 01/2702/13/25 History tablet cholecalciferol (vitamin D3) 125 125 mcg PO DAILY 12/1402/13/25 History mcg (5,000 unit) tablet sstsivlg-dkg-swglg 120 mcg-lutein 1 tab PO DAILY 01/2702/13/25 History 150 mcg-herb 50 mg chewable tablet (Alive Men's 50 Plus Multivitamin) zinc sulfate 50 mg zinc (220 mg) 50 mg PO DAILY 02/13/25 History capsule losartan 25 mg tablet 25 mg PO DAILY #90 tabs 01/2402/13/25 Rx atorvastatin 40 mg tablet 40 mg PO QHS #90 tabs 02/13/25 Rx metoprolol tartrate 25 mg tablet 12.5 mg (1/2 x 25 mg) PO BID #90 01/22/25 02/13/25 Rx TABLETS Have you fallen in the past year?: No PFSH Medical History Wears glasses Alcohol use Arthritis High cholesterol History of echocardiogram History of stress test Hypertension Cardiology follow-up encounter History of rheumatic fever Essential hypertension Former smoker Myocardial infarct Pneumonia due to COVID-19 virus Pneumonia due to 2019-nCoV Syncope Hyperlipidemia Old anterior myocardial infarction Atherosclerosis of coronary artery of [place] heart without angina pectoris Surgical History Hx of colonoscopy (~10/2023) History of esophagogastroduodenoscopy (EGD) History of appendectomy History of coronary artery stent placement History of coronary artery stent placement (~11/17/16) Family History Mother Breast cancer Social History Smoking Status: Former smoker how long ago did patient quit smokin alcohol intake: current alcohol intake frequency: 0-2 drinks per day Alcohol type: beer substance use type: does not use caffeine: Yes Type: coffee Number of servings: 1 ROS Const Const: Negative for fatigue or weakness ENT ENT: Negative for dizziness or balance problems Cardio Chest Pain: No Palpitations: No Edema: None Muscle aches with walking: None Resp Respiratory: Negative for SOB with activity, SOB at rest or SOB orthopnea\SOB lying down GI GI: Negative nausea, vomiting or heartburn Musc Musc: Negative for muscle weakness or balance problems Neuro Neuro: Negative for dizziness, lightheadedness, near syncope, syncope or weakness Endo Endo: Negative for fatigue Cardiology Exam Const Appearance: comfortable and no acute distress Nutritional Appearance: well nourished Neck Neck: no JVD Carotids: Negative bruit Chest Auscultation: Bilateral: Clear to Auscultation Cardio Rate: regular rate Rhythm: regular rhythm Heart sounds: S1 normal and S2 normal Neuro General: patient alert, patient awake and patient oriented x3 Extremities Lower Extremity Edema: None: Bilateral Supplemental Info Supplemental Information Labs: LDL Cholesterol 50 mg/dL (0-130) HDL Cholesterol 45 mg/dL (40-) Cholesterol 107 mg/dL (200) Triglycerides 59 mg/dL (-199) Diagnostics: Stress Test Stress Test Nuclear Medicine Chest X-Ray Pulmonary: No Data to Display Past Visits: Cardiology Visit 02/13/25 Assessment and Plan Assessment and Plan (1) Coronary artery disease: Status: Chronic Plan: History of anterior VT. Status post ALEXANDRU to the LAD in 2017. Continue aspirin. Beta-blockers. Risk factor modification. Check echocardiogram. (2) History of coronary artery stent placement: Status: Chronic Comment: PCI-ALEXANDRU-Mid LAD 3.5 x 20 mm Synergy 11/17/2016 Plan: Aspirin. (3) Essential hypertension: Status: Chronic Plan: Losartan and metoprolol. (4) Dyslipidemia: Status: Chronic Plan: Atorvastatin. Check lipid profile. Plan Details Follow Up: 12 Months Coding Level of Care Code Off vis,est,level 4 Diagnoses Coronary artery disease I25.10 History of coronary artery stent placement Z95.5 Essential hypertension I10 Dyslipidemia E78.5 Coding Level of Care Code Off vis,est,level 4 Diagnoses Coronary artery disease I25.10 History of coronary artery stent placement Z95.5 Essential hypertension I10 Dyslipidemia E78.5 Clinical Quality Measures Falls Risk Screening/Assistive Devices Have you fallen in the past year?: No 02/13/25 1113 <Electronically signed by Sushila Roberts MD> Date _ Sushila Roberts MD Cosigner Signature: Date (if applicable) CC: Dr. Vincent Rogers MD ~ [facility] Work Phone: 1(801) 533-546503-11-2024 Evaluation + Plan noteExtracted from: Title:Clinical Document Author:JESSE MARIA Date:10/04/23 [place] ADMISSION HISTORY AN D PHYSICIAL CHIEF COMPLAINT: HISTORY OF PRESENT ILLNESS: REVIEW OF SYSTEMS: ACTIVE PROBLEMS: (5) CAD (coronary artery disease) (71545706) Colon polyps (674661117) GERD (gastroesophageal reflux disease) (123548915) Hypertension (0109386437) Melena ([id number]) MEDICATIONS: Active Inpt Meds: None Active PRN Meds: None One Time Meds: None Active IV Meds: Lactated Ringers Infusion 1,000 mL (LR 1,000 mL) Start: 10/04/23 7:38:00 EDT, Rate: 50 mL/hr, 10/04/23 7:38:00 EDT ALLERGIES: (1) NKA FAMILY HISTORY: SOCIAL HISTORY: PHYSICAL EXAM: VITALS: [id number](kg) 10/03 07:5036.6--337267VO18/11 86.3 24 Hr Tmax: 36.6 at 10/03 07:50 36 Hr Tmax: 36.6 at 10/03 07:50 Vital Signs are the last 5 in the past 48 hours. Weights display the last 5 within 7 days. Initial Wt: 10/03 86.3 kg 190 lb Current Wt: 10/03 86.3 kg 190 lb GENERAL: HEENT: CARDIOVASCULAR: RESPIRATORY: ABDOMEN: EXREMETIES: NEUROLOGICAL: PSYCHIATRIC: LABS: No 36hr Lab Data DIAGNOSTICS: IMPRESSION: PLAN: History and Physical Update I have examined the patient; reviewed the H&P and there are no changes to the H&P unless noted below. [facility] 03-11-2024 Hospital Discharge instructions Patient Education 10/04/2023 08:51:26 Monitored Anesthesia Care, Care After Monitored Anesthesia Care, Care After These instructions provide you with information about caring for yourself after your procedure. Your health care provider may also give you more specific instructions. Your treatment has been plannedaccording to current medical practices, but problems sometimes occur. Call your health care provider if you have any problems or questions after your procedure. What can I expect after the procedure? After your procedure, you may: Feel sleepy for several hours. Feel clumsy and have poor balance for several hours. Feel forgetful about what happened after the procedure. Have poor judgment for several hours. Feel nauseous or vomit. Have a sore throat if you had a breathing tube during the procedure. Follow these instructions at home: For at least 24 hours after the procedure: Have a responsible adult stay with you. It is important to have someone help care for you until youare awake and alert. Rest as needed. Do not: ?Participate in activities in which you could fall or become injured. ?Drive. ?Use heavy machinery. ?Drink alcohol. ?Take sleeping pills or medicines that cause drowsiness. ?Make important decisions or sign legal documents. ?Take care of children on your own. Eating and drinking Follow the diet that is recommended by your health care provider. If you vomit, drink water, juice, or soup when you can drink without vomiting. Make sure you have little or no nausea before eating solid foods. General instructions Take ozon-yci-xbuebom and prescription medicines only as told by your health care provider. If you have sleep apnea, surgery and certain medicines can increase your risk for breathing problems. Follow instructions from your health care provider about wearing your sleep device: ?Anytime you are sleeping, including during daytime naps. ?While taking prescription pain medicines, sleeping medicines, or medicines that make you drowsy. If you smoke, do not smoke without supervision. Keep all follow-up visits as told by your health care provider. This is important. Contact a health care provider if: You keep feeling nauseous or you keep vomiting. You feel light-headed. You develop a rash. You have a fever. Get help right away if: You have trouble breathing. Summary For several hours after your procedure, you may feel sleepy and have poor judgment. Have a responsible adult stay with you for at least 24 hours or until you are awake and alert. This information is not intended to replace advice given to you by your health care provider. Make sure you discuss any questions you have with your health care provider. Document Released: 11/01/2016 Document Revised: 10/10/2018 Document Reviewed: 11/01/2016 [employer] Patient Education 2020 [employer]. 10/04/2023 08:51:22 9 - AO Minor Esophagogastroduodenoscopy (10/06) (CUSTOM) Esophagogastroduodenoscopy This is an endoscopic procedure (a procedure that uses a device like a flexible telescope) that allows your caregiver to view the upper stomach and small bowel. This test allows your caregiver to look at the esophagus. The esophagus carries food from your mouth to your stomach. They can also look at your duodenum. This is the first part of the small intestine that attaches to the stomach. This gopal t is used to detect problems in the bowel such as ulcers and inflammation. MEANING OF TEST Your caregiver will go over the test results with you and discuss the importance and meaning of your results, as well as treatment options and the need for additional tests if necessary. OBTAINING THE TEST RESULTS Your caregiver s office will call you with the results of the test. POST SEDATION INSTRUCTIONS Rest at home today. Since your coordination may be impaired, be cautious on stairways, do not drive any vehicle or operate any heavy machinery, or use any sharp instruments for the remainder of the day. Do not drink any alcoholic beverages or make any major decisions for 24 hours. POST PROCEDURE INSTRUCTIONS Progress slowly with full liquids then resume previous diet and medications. Belching or passing of gas is to be expected. Notify the physician if you have severe chest pain, fever, or if difficulty when swallowing persists. 10/03/13 Custom Follow Up Care 09/14/2023 07:48:48 With:JESSE MARIA MD Address: [address] [place], [place] [address] [address] [place], [place] [id number]- [phone] When: Unknown [facility] 03-11-2024 Note Discharge Instructions Thank you for allowing [facility] to assist you with your healthcare needs. The following is importantdischarge information regarding your hospital visit. Your Care Team AKIN MIDDLETON DO Dr. Maria What to do next Follow Up Appointments Follow Up with JESSE MARIA MD When Where: [address] [facility] [address] [place] [address] [phone] Allergies NKA Medications Please ask your primary doctor or pharmacist before taking any other medication not listed, including over the counter drugs, herbal medications, vitamins and or supplements as they may interact withyour home medications. What How Much When Instructions Last Dose Unchanged atorvastatin (atorvastatin 40 mg oral tablet) 2tab(s) Unchanged clopidogrel (clopidogrel 75 mg oral tablet) 1 tab(s) by mouth Every day Unchanged losartan (losartan 25 mg oral tablet) 1 tab(s) Unchanged metoprolol (Lopressor 25mg--USE metoprolol tartrate 25 mg oral tablet) 1 tab(s) Unchanged pantoprazole (pantoprazole 40 mg oral enteric coated tablet) 1 tab(s) Please take this list to your next doctor s visit. Bring all medications you take, including over the counter medications, herbals and other supplements with you to your doctor s visit. Patients and families are reminded to discard old lists and to update any records with all medication providers or retail pharmacies. Education Materials Monitored Anesthesia Care, Care After These instructions provide you with information about caring for yourself after your procedure. Your health care provider may also give you more specific instructions. Your treatment has been plannedaccording to current medical practices, but problems sometimes occur. Call your health care provider if you have any problems or questions after your procedure. What can I expect after the procedure? After your procedure, you may: Feel sleepy for several hours. Feel clumsy and have poor balance for several hours. Feel forgetful about what happened after the procedure. Have poor judgment for several hours. Feel nauseous or vomit. Have a sore throat if you had a breathing tube during the procedure. Follow these instructions at home: For at least 24 hours after the procedure: Have a responsible adult stay with you. It is important to have someone help care for you until youare awake and alert. Rest as needed. Do not: ? Participate in activities in which you could fall or become injured. ? Drive. ? Use heavy machinery. ? Drink alcohol. ? Take sleeping pills or medicines that cause drowsiness. ? Make important decisions or sign legal documents. ? Take care of children on your own. Eating and drinking Follow the diet that is recommended by your health care provider. If you vomit, drink water, juice, or soup when you can drink without vomiting. Make sure you have little or no nausea before eating solid foods. General instructions Take qspc-ihw-rntagzz and prescription medicines only as told by your health care provider. If you have sleep apnea, surgery and certain medicines can increase your risk for breathing problems. Follow instructions from your health care provider about wearing your sleep device: ? Anytime you are sleeping, including during daytime naps. ? While taking prescription pain medicines, sleeping medicines, or medicines that make you drowsy. If you smoke, do not smoke without supervision. Keep all follow-up visits as told by your health care provider. This is important. Contact a health care provider if: You keep feeling nauseous or you keep vomiting. You feel light-headed. You develop a rash. You have a fever. Get help right away if: You have trouble breathing. Summary For several hours after your procedure, you may feel sleepy and have poor judgment. Have a responsible adult stay with you for at least 24 hours or until you are awake and alert. This information is not intended to replace advice given to you by your health care provider. Make sure you discuss any questions you have with your health care provider. Document Released: 11/01/2016 Document Revised: 10/10/2018 Document Reviewed: 11/01/2016 Else[employer]Class Patient Education 2020 [employer] Esophagogastroduodenoscopy This is an endoscopic procedure (a procedure that uses a device like a flexible telescope) that allows your caregiver to view the upper stomach and small bowel. This test allows your caregiver to look at the esophagus. The esophagus carries food from your mouth to your stomach. They can also look at your duodenum. This is the first part of the small intestine that attaches to the stomach. This gopal t is used to detect problems in the bowel such as ulcers and inflammation. MEANING OF TEST Your caregiver will go over the test results with you and discuss the importance and meaning of your results, as well as treatment options and the need for additional tests if necessary. OBTAINING THE TEST RESULTS Your caregiver s office will call you with the results of the test. POST SEDATION INSTRUCTIONS Rest at home today. Since your coordination may be impaired, be cautious on stairways, do not drive any vehicle or operate any heavy machinery, or use any sharp instruments for the remainder of the day. Do not drink any alcoholic beverages or make any major decisions for 24 hours. POST PROCEDURE INSTRUCTIONS Progress slowly with full liquids then resume previous diet and medications. Belching or passing of gas is to be expected. Notify the physician if you have severe chest pain, fever, or if difficulty when swallowing persists. 10/03/13 Custom Additional Information VACCINATE! IT SAVES LIVES! Members of the community who have not yet received the COVID-19 vaccine and would like to receive it can visit one of [facility] vaccine clinics. There are many vaccine clinic locations within the [facility]. For locations and available times, please visit https://gettheshot.coronavirus.[place].gov/. It is important to note that some COVID mobile vaccine clinics are held outdoors and may be canceled in rainy or stormy conditions. To learn more about pediatric vaccinations (ages 5-11), we invite you to visit the [facility] webpage. https://www.[facility].org/pages/5670-Niprl-Dcvxscyykyy-Glcmweuivp-Uykjy-Itl stions.htmlTo learn more about the COVID-19 vaccine, we invite you to visit the CDC website for a list of frequently asked questions.https://www.cdc.gov/coronavirus/2019-ncov/vaccines/faq.html [facility] Patient Portal Access Instructions: Stay connected with your healthcare team and access your personal medical information anytime with the [facility] Patient Portal. Please follow the directions below to create your [facility] account: 1.Access the email account you provided upon registration to the hospital/physician office.2.Look for an invitation email from [facility].3.Open the email and access the invitation link: AcceptInvitation to [facility].4.Fill in the required gavin to create your account. To access your account, visit [facility]. Click the blue button labeled Access Patient Portal and then log in with the username and password that you created in the steps above. You will be able to view your test results, lab results, a summary of your visits, upcoming appointments and more. There is also a convenient messaging option where you can send secure messages to your [employer]. In addition, you will have the ability to download any documents or summaries to your computer and/or send the information securely to a physician. Remember that your healthcare information is confidential, so carefully consider who you will allowto register on the [facility] Patient Portal for access to your information. You can also access the [facility] Patient Portal on the [facility] danny. Simply click on Patient Portal and then log into your account. If you would like to receive a full copy of your medical records, please contact the [facility] Medical Records Department by calling [phone], Wednesday through Wednesday between 8 a.m. and 4:30 p.m. HOW TO SAFELY DISPOSE OF PRESCRIPTION MEDICATIONS Please use one of the following methods to safely dispose of your unused medications. 1.Use a drug disposal kit: the drug disposal pouch allows you to safely discard your old and unuseddrugs. Ask your nurse to give you one when you are discharged.2.Visit a local take-back location: Many local pharmacies and police departments have programs that collect old and unwanted prescriptiondrugs. Call your local pharmacy or go to http://bit.Barre/8Y3Jy4c to find one close to you.3.Make use of household items: Use cat litter or old coffee grounds to dispose medications if other options arenot available. Mix your drugs with these household products, seal them in an airtight container andthrow it into the garbage. Call [facility]: [phone] to be sure your drugs can be [...] a CHART COPY. Signatures Patient Education Materials Monitored Anesthesia Care, Care After 9 - AO Minor Esophagogastroduodenoscopy (10/06) (CUSTOM) Medication Leaflets My discharge plan and instructions have been reviewed and explained to me and I,VALERIA EMERY understand my current condition and have read and understand these discharge instructions. I have received a written copy of the plan/instructions. If I have questions, I am aware that I should contact my doctor. Patient/Resource Management Planner Signature: Date/Time: Relationship to Patient: Witness Name/Signature: Date/Time: [facility]03-11-2024 Anesthesiology Consult note Patient: VALERIA EMERY Age: 78 years Sex: Male : 1945 Associated Diagnoses: None Author: HUONG GUSMAN Assessment Postanesthesia assessment Mental status: alert & oriented x 4. Respiratory function: lungs are clear to auscultation. Respiratory support: none. CV function: Normal rate. Cardiovascular support: none. Pain. Nausea status: denies nausea. Postoperative hydration status: within normal limits. Digitally Signed by HUONG GUSMAN on 10/04/2023 08:39 AM [facility]03-11-2024 Note [facility] ADMISSION HISTORY AND PHYSICIAL CHIEF COMPLAINT: HISTORY OF PRESENT ILLNESS: REVIEW OF SYSTEMS: ACTIVE PROBLEMS: (5) CAD (coronary artery disease) (11861031) Colon polyps (849956030) GERD (gastroesophageal reflux disease) (163021536) Hypertension (8818014077) Melena (3045806) MEDICATIONS: Active Inpt Meds: None Active PRN Meds: None One Time Meds: None Active IV Meds: Lactated Ringers Infusion 1,000 mL (LR 1,000 mL) Start: 10/04/23 7:38:00 EDT, Rate: 50 mL/hr, 10/04/23 7:38:00 EDT ALLERGIES: (1) NKA FAMILY HISTORY: SOCIAL HISTORY: PHYSICAL EXAM: VITALS: HgwdsuGowsNZEdxfhITXuI9MAR0LwmnFs(kg) 10/03 07:5036.6--794281LF46/11 86.3 24 Hr Tmax: 36.6 at 10/03 07:50 36 Hr Tmax: 36.6 at 10/03 07:50 Vital Signs are the last 5 in the past 48 hours. Weights display the last 5 within 7 days. Initial Wt: 10/03 86.3 kg 190 lb Current Wt: 10/03 86.3 kg 190 lb GENERAL: HEENT: CARDIOVASCULAR: RESPIRATORY: ABDOMEN: EXREMETIES: NEUROLOGICAL: PSYCHIATRIC: LABS: No 36hr Lab Data DIAGNOSTICS: IMPRESSION: PLAN: History and Physical Update I have examined the patient; reviewed the H&P and there are no changes to the H&P unless noted below. Digitally Signed by JESSE MARIA MD on 10/04/2023 08:32 AM [facility]03-11-2024 Anesthesiology Consult note Patient: VALERIA EMERY Age: 78 years Sex: Male : 1945 Associated Diagnoses: None Author: HUONG GUSMAN Preoperative Information Time of last food or liquid consumption: 10/04/2023 00:00:00 Anesthesia history Patient's history: negative. Family's history: negative. Review of Systems Ear/Nose/Mouth/Throat: Negative. Respiratory: Negative. Cardiovascular: CAD, htn. Gastrointestinal: Reflux, obese. Genitourinary: Negative. Endocrine: Negative. Musculoskeletal: Negative. Integumentary: Negative. Neurologic: Negative. Health Status Allergies: Allergic Reactions (Selected) NKA, Allergies (1) ActiveReaction NKANone Documented Current medications: (Selected) Inpatient Medications Ordered LR 1,000 mL: 50 mL/hr, Intravenous Documented Medications Documented Lopressor 25mg--USE metoprolol tartrate 25 mg oral tablet: 25 mg, 1 tab(s), 0 Refill(s) atorvastatin 40 mg oral tablet: 80 mg, 2 tab(s), 0 Refill(s) clopidogrel 75 mg oral tablet: 75 mg, 1 tab(s), Oral, Daily, 0 Refill(s) losartan 25 mg oral tablet: 25 mg, 1 tab(s), 0 Refill(s) pantoprazole 40 mg oral enteric coated tablet: 40 mg, 1 tab(s), 0 Refill(s), Medications (1) Active Scheduled: (0) Continuous: (1) Lactated Ringers 1,000 mL 1,000 mL, Intravenous, 50 mL/hr PRN: (0) Problem list: Active Problems (5) CAD (coronary artery disease) Colon polyps GERD (gastroesophageal reflux disease) Hypertension Melena Histories Past Medical History: No active or resolved past medical history items have been selected or recorded. Family History: COPD - Chronic obstructive pulmonary disease Father Breast cancer Mother Alzheimer disease Mother Procedure history: Stent placement (882611044) in 2017 at 72 Years. Tonsillectomy (426612224). Appendectomy (019106544). Colonoscopy (025773018). Social History Social & Psychosocial Habits No Data Available . Physical Examination Vital Signs 10/04/2023 7:50 EDT Temperature Temporal Artery 36.6 DegC Peripheral Pulse Rate 52 bpm LOW Respiratory Rate 12 br/min LOW Systolic Blood Pressure Non-Invasive 117 mmHg Diastolic Blood Pressure Non-Invasive 76 mmHg Vital Signs(last 24 hrs) Last Charted AVM234 mmHg (OCT 03 07:50) DBP76 mmHg (OCT 03 07:50) Measurements from flowsheet : Measurements 10/04/2023 7:50 EDT Height 180.3 cm Admission Weight 86.3 kg [place] Body Weight 75.26 kg Admission Body Mass Index 26.55 m2 10/04/2023 7:45 EDT Height 180.3 cm [place] Body Weight 75.26 kg Pain assessment: Pain Assessment 10/04/2023 7:50 EDT Primary Pain Intensity 0 Pain Scale Type 0-10 Pain scale . General: Alert and oriented. Airway: Normal temporomandibular joint mobility. Mallampati classification: II (soft palate, fauces, uvula visible). Head: Normocephalic. Dentition Evaluation: Own teeth. Neck: Supple. Respiratory: Lungs are clear to auscultation. Cardiovascular: Normal rate. Heart Sounds: Normal. Gastrointestinal: Soft. Musculoskeletal Normal range of motion. Integumentary: Intact. Neurologic: Alert, Oriented. Review / Management Results review: No qualifying data available , Lab results 10/04/2023 8:00 EDT Lactated Ringers Injection Begin Bag 1,000 mL mL 10/04/2023 7:58 EDT Antecubital Right 22 gauge Peripheral IV Activity: Insert new site Peripheral IV Dressing Condition: Clean, Dry, Intact Peripheral IV Dressing Activity: Transparent dressing Peripheral IV Line Status/Patency: Continuous infusion Peripheral IV Site Condition: No complications Peripheral IV Number of Attempts: 1 10/04/2023 7:50 EDT Height 180.3 cm Admission Weight 86.3 kg [place] Body Weight 75.26 kg Admission Body Mass Index 26.55 m2 Temperature Temporal Artery 36.6 DegC Peripheral Pulse Rate 52 bpm LOW Respiratory Rate 12 br/min LOW Systolic Blood Pressure Non-Invasive 117 mmHg Diastolic Blood Pressure Non-Invasive 76 mmHg Primary Pain Intensity 0 Pain Scale Type 0-10 Pain scale Heart Rhythm Regular Respirations Unlabored Oxygen Therapy Room air Oxygen Saturation 97 % Abdomen Description Non-distended, Soft Bowel Sounds All Quadrants Present Skin Temperature Warm Skin Description Avella, Normal for ethnicity, Dry Skin Integrity Intact Mucous Membrane Color Avella Neurological Symptoms Patient denies Level of Consciousness Alert Strength All Extremities Strong Affect/Behavior Appropriate, Calm, Cooperative Orientation Oriented x 4 Standard Safety ID band on, Call device within reach, Bed in low position, Wheels locked 10/04/2023 7:45 EDT Designated Person #1 We May Share EMILY SMITH [phone] Designated Person #1 Relationship Spouse Privacy Restrictions Requested None Height 180.3 cm [place] Body Weight 75.26 kg Status N/A Sensory Deficits None Infectious Disease Symptoms Patient states no symptoms [...] > 3 Weeks No Weight Loss No Barriers to Learning None evident Teaching Method Demonstration Preferred Spoken Language Martiniquais Preferred Written Language Martiniquais Information Given by Unable to obtain Patient's Current Physicians Ila OLIVA) Discharge To, Anticipated Home Health Care Prev Test Positive/Diagnosis w/COVID-19 Yes Previous COVID-19 Positive 2018 Current Quarantine/Isolated any Illness No Any Contact with Sick Animals/Birds No Traveled Anywhere in Last 30 Days No N/A Personal Devices, Patient Valuables Glasses Admission Note-Nursing Procedure/Therapy Intake 10/04/2023 7:40 EDT IV Present Present Allergies Yes Anesthesia Extension Set Applied Yes Consent Form Signed Yes Patient Dressed In Hospital gown History & Physical Update On Chart Yes History & Physical On Chart Yes Obstructive Sleep Apnea Assess Completed Yes Belongings At Bedside Pants, Shirt, Shoes Personal Home Medications Received No home medications were brought in NPO Status Maintained Patient ID Band on and Verified Yes Implants Verified Yes Pacemaker/AICD Verified Yes Site Verified by Patient/Family Yes Anesthesia Consent Signed Yes Last Fluid Intake 10/03/2023 22:00 Last Food Intake 10/03/2023 22:00 . Assessment and Plan [place] [employer] Anesthesiologists (ASA) physical status classification: Class III. Anesthetic Preoperative Plan Anesthetic technique: MAC. Postoperative pain management: Per surgeon. Informed consent: signed by patient. Digitally Signed by HUONG GUSMAN APRN-OFFICE SERVICE COORDINATOR on 10/04/2023 08:03 AM [facility]01-18-[address] Stearns [facility] August 12, 2022 12:31pm Note Date/Time August 12, 2022 1 2:31pm [facility] Medical Records Department [address] [place] [address] Instructions for Home/Discharge Instructions 08/12/22 1230 MR#: [id number] Acct: [id number] Name: VALERIA EMERY Rep #:[id number] : 1945 77 From: Salvador Stearns MD PCP: Akin Middleton DO Status:REG S DC Discharge Instructions Diet Discharge Diet: No restrictions Activity Discharge Activity: Return to Normal Activity Dressing / Incision Call your doctor if your incision/area has: Sudden Increased Bleeding Follow Up Care Please Follow Up With: Salvador Stearns MD When: appt in two weeks Test Results: Test results from this visit will be discussed in further detail at your follow- up appointment, if applicable. Discharge Plan Admission Primary Reason for Your Visit: Circumcision Attending Provider: Salvador Stearns Primary Care Provider: Akin Middleton Discharge Orders/Prescriptions Prescriptions: New oxycodone-acetaminophen [Endocet] 5-325 mg tablet 1 tab PO Q6H PRN (Reason: pain) 7 Days Qty: 14 0RF Continued cholecalciferol (vitamin D3) 125 mcg (5,000 unit) tablet 125 mcg PO DAILY ascorbic acid (vitamin C) 500 mg tablet 500 mg PO DAILY zinc sulfate 50 mg zinc (220 mg) capsule 50 mg PO DAILY Alive Men's 50 Plus Multivit 120 mcg-150 mcg -50 mg tablet,chewable 1 tab PO DAILY latanoprost 0.005 % drops 1 drp EACH EYE QHS metoprolol tartrate 25 mg tablet 12.5 mg PO BID Qty: 90 4RF losartan 25 mg tablet 25 mg PO DAILY Qty: 90 3RF atorvastatin 40 mg tablet 40 mg PO QHS Qty: 90 4RF Held aspirin 81 MG tablet 81 mg PO DAILY@0800 Qty: 30 11RF Hold Instructions: Resume on 08/19/22. clopidogrel [Plavix] 75 mg tablet 75 mg PO DAILY Qty: 90 3RF Hold Instructions: Resume on 08/19/22. Referrals / Follow Up: Salvador Stearns MD [Med Staff - Active Staff] - Akin Middleton DO [Primary Care Provider] - Disposition Disposition (needs filled in before D/C Order can be placed): Home, Self Care 08/12/22 1231<Electronically signed by Salvador Stearns MD>Salvador Stearns MD CC: Akin Middleton DO ~ Signed [facility] Work Phone: 1(370) 324-475301-18-2023 History and physical note Author Dr. Stearns [facility] August 12, 2022 12:31pm Note Date/Time August 12, 2022 1 2:31pm [facility] Medical Records Department [address] [place] [address] History & Physical Exam 08/12/22 1230 MR#: [id number] Acct: [id number] Name: VALERIA EMERY Rep #:[id number] : 1945 77 From: Salvador Stearns MD PCP: Akin Middleton DO Status:REG S DC Location: [place] [address] HPI - General General Date of Service: 08/12/22 Chief Complaint: Phimosis HPI Narrative VALERIA EMERY, is a 77 M who presents for a circumcision because he has severephimosis of the foreskin also has BPH with obstruction we will do a cystoscopy at the same time. [facility] Medical History (Updated 08/12/22 @ 12:[address] Salvador Stearns MD) Alcohol use Arthritis Atherosclerosis of coronary artery of [place] heart without angina pectoris Cardiology follow-up encounter Essential hypertension Former smoker High cholesterol History of echocardiogram History of rheumatic fever History of stress test Hyperlipidemia Hypertension Myocardial infarct Old anterior myocardial infarction Pneumonia due to 2019-nCoV Pneumonia due to COVID-19 virus Syncope Wears glasses Home Medications aspirin 81 mg tablet,delayed release 81 mg PO DAILY@0800 #30 tabs 11/19/16 [Rx Last Taken 03/03/21] latanoprost 0.005 % eye drops 1 drp EACH EYE QHS GLAUCOMA 02/28/21 [History Last Taken 03/02/21] metoprolol tartrate 25 mg tablet 12.5 mg PO BID #90 tabs 01/05/22 [Rx Last Taken Unknown] ascorbic acid (vitamin C) 500 mg tablet 500 mg PO DAILY 01/27/22 [History Last Taken Unknown] cholecalciferol (vitamin D3) 125 mcg (5,000 unit) tablet 125 mcg PO DAILY 01/27/22 [History Last Taken Unknown] vitsesoo-mpw-yemes 120 mcg-lutein 150 mcg-herb 50 mg chewable tablet (Alive Men's 50 Plus Multivitamin) 1 tab PO DAILY 01/27/22 [History Last Taken Unknown] zinc sulfate 50 mg zinc (220 mg) capsule 50 mg PO DAILY 01/27/22 [History Last Taken Unknown] clopidogrel 75 mg tablet (Plavix) 75 mg PO DAILY #90 tabs 02/03/22 [Rx Last Taken 08/02/22] losartan 25 mg tablet 25 mg PO DAILY #90 tabs 02/12/22 [Rx Last Taken Unknown] atorvastatin 40 mg tablet 40 mg PO QHS #90 tabs 03/05/22 [Rx Last Taken Unknown] oxycodone-acetaminophen 5 mg-325 mg tablet (Endocet) 1 tab PO Q6H PRN pain 7 days #14 tabs 08/12/22 [Rx Last Taken Unknown] Allergy/AdvReac Type Severity Reaction Status Date / Time lisinopril AdvReac Dry cough Verified 08/12/22 11:17 Family History Mother Breast cancer Surgical History (Updated 08/06/22 @ 15:52 by Melanie Zhou) History of appendectomy History of appendectomy History of coronary artery stent placement (~11/17/16) History of coronary artery stent placement History of esophagogastroduodenoscopy (EGD) Hx of colonoscopy Social History (Updated 01/27/22 @ 08:45 by Margoth Cruz Smoking Status: Former smoker how long ago did patient quit smokin alcohol intake: current alcohol intake frequency: 0-2 drinks per day Alcohol type: beer substance use type: does not use caffeine: Yes Type: coffee Number of servings: 1 Vital Signs Vital Signs Vital Signs: 08/12/22 11:19 08/12/22 11:19 Temperature 98.6 F Temperature Source Temporal Pulse Rate 56 L Respiratory Rate 16 Respiratory Pattern Normal Blood Pressure 122/78 H Blood Pressure Mean 92 Blood Pressure Source Monitor Blood Pressure Position Semi-Fowlers Blood Pressure Location Left Arm Pulse Ox 98 Oxygen Delivery Method Room Air Weight Weight: 86 kg Body Mass Index (BMI) 25.7 08/12/22 1231 <Electronically signed by Salvador Stearns MD> Cosigner Signature (if applicable): CC: Dr. Salvador Stearns MD; Akin Middleton DO~ Signed [facility] Work Phone: 1(419) 898-989101-18-2023 Procedure [facility] 08-07-2022 Evaluation + Plan noteExtracted from: Title:Clinical Document Author:JESSE MARIA Date:08/07/22 [place] ADMISSION HISTORY AN D PHYSICIAL CHIEF COMPLAINT: HISTORY OF PRESENT ILLNESS: REVIEW OF SYSTEMS: ACTIVE PROBLEMS: (1) Hypertension (5956465225) MEDICATIONS: Active Inpt Meds: None Active PRN Meds: None One Time Meds: None Active IV Meds: Lactated Ringers Infusion 1,000 mL (LR 1,000 mL) Start: 08/07/22 8:02:00 EST, Rate: 50 mL/hr, 08/07/22 8:02:00 EST ALLERGIES: (1) NKA FAMILY HISTORY: SOCIAL HISTORY: PHYSICAL EXAM: VITALS: LzdlboJdvbJTIrldsELSoC9MJL9GkvvYu(kg) 08/07 07:5936.0--[id number]/13 86.4 24 Hr Tmax: 36.0 at 08/07 [...] changes to the H&P unless noted below. [facility] 01-13-2023 Hospital Discharge instructions Patient Education 08/07/2022 09:36:47 Diverticulosis Diverticulosis Diverticulosis is a condition that develops when small pouches (diverticula) form in the wall of the large intestine (colon). The colon is where water is absorbed and stool is formed. The pouches form when the inside layer of the colon pushes through weak spots in the outer layers of the colon. Youmay have a few pouches or many of [...] overweight. Not getting enough exercise. Smoking. Taking mqil-bgk-oliiiip pain medicines, like aspirin and ibuprofen. Having [...] health care provider or your diet and fire support specialist (dietitian). ?Take a fiber supplement or probiotic, if your health care provider approves. Take rbje-yts-gfnhpzb and prescription medicines only as told by [...] 04/08/2005 Document Revised: 06/24/2018 Document Reviewed: 05/31/2017 [employer] Patient Education 2020 [employer]. 08/07/2022 09:36:29 Colonoscopy, Adult, Care After, Olql-of-Squa Colonoscopy, Adult, Care After This sheet gives [...] are soft and easy to digest. Take ebps-lro-xblbpku or prescription medicines only as told by [...] 08/14/2011 Document Revised: 05/12/2018 Document Reviewed: 04/05/2017 [employer] Patient Education 2020 [employer]. Follow Up Care 06/17/2022 07:38:29 With:JESSE MARIA MD [address] [facility] [address] [place], [place] [phone]- [phone] When: Unknown Comments:Follow up as needed with PCP. [facility] 01-13-2023 Anesthesiology Consult note Patient: VALERIA EMERY Age: 77 years Sex: Male : 1945 Associated Diagnoses: None Author: REGAN GUTIERREZ Assessment Postanesthesia assessment Vitals: Reviewed Results: Vital signs from flowsheet : Vital Signs(Date Range: 08/06/2022 0:00 EST -08/07/2022 9:48 EST) . Mental status: at preoperative baseline, alert & oriented x 4. Respiratory function: lungs are clear to auscultation. Respiratory support: none. CV function: Normal rate. Cardiovascular support: none. Pain. Nausea status: denies nausea. Postoperative hydration status: within normal limits. Digitally Signed by REGAN GUTIERREZ on 08/07/2022 09:49 AM [facility]01-13-2023 Summary of episode note Discharge Instructions Thank you for allowing [facility] to assist you with your healthcare needs. The following is importantdischarge information regarding your hospital visit. Your Care Team AKIN MIDDLETON DO Your Diagnosis Clogged artery (heart) Glaucoma What to do next Follow Up Appointments Follow Up with JESSE MARIA MD When Why: Follow up as needed with PCP. Where: [address] [facility] [address] [place] [address] [phone] The Following Activity and Diet Have Been [...] and or supplements as they may interact withyour home medications. Please take this list to [...] in the outer layers of the colon. Youmay have a few pouches or many of [...] overweight. Not getting enough exercise. Smoking. Taking glwq-ntp-brtfxrw pain medicines, like aspirin and ibuprofen. Having [...] health care provider or your diet and fire support specialist (dietitian). ? Take a fiber supplement or probiotic, if your health care provider approves. Take qauq-mnm-yfemroe and prescription medicines only as told by [...] 04/08/2005 Document Revised: 06/24/2018 Document Reviewed: 05/31/2017 [employer] Patient Education 2020 [employer]. Colonoscopy, Adult, Care After This sheet gives [...] are soft and easy to digest. Take objy-phu-qloshsn or prescription medicines only as told by [...] 08/14/2011 Document Revised: 05/12/2018 Document Reviewed: 04/05/2017 [employer] Patient Education 2020 [employer] Additional Information VACCINATE! IT SAVES LIVES! Members of the community who have not yet received the COVID-19 vaccine and would like to receive it can visit one of [facility] vaccine clinics. There are many vaccine clinic locations within the [facility]. For locations and available times, please visit [email or web address]/. It is important to note that some COVID mobile vaccine clinics are held outdoors and may be canceled in rainy or stormy conditions. To learn more about pediatric vaccinations (ages 5-11), we invite you to visit the [facility] webpage. https://www.[facility].org/pages/1977-Vcfxs-Axvloghaezg-Ojggveoxuz-Vqmwk-Uxf stions.htmlTo learn more about the COVID-19 vaccine, we invite you to visit the [facility] website for a list of frequently asked questions. [email or web address]/assets/Vlevimat-vtj-Idfyvksr/dmsgn-Hipufeu-Cfiljiqdoy _Asked-Questions.pdf [facility] Patient Portal Access Instructions: Stay connected with your healthcare team and access your personal medical information anytime with the [facility] Patient Portal.If you would like a full copy of your medical records, please contact the [facility] Medical Records Department, Wednesday through Wednesday between 8a.m. and 4:30p.m. Please follow the directions below to access the portal: 1.Access the email account you provided upon registration to the hospital.2.Look for an invitation email from [facility].3.Open the email and access the invitation link: Accept Invitation to [facility].Fill in the required gavin to create your account. Sign into www.[employer] with your username and password that you [...] you will allow to register on the [facility] Patient Portal for access to your information. You can also access the [facility] Patient Portal on the [employer]. Simply click on Health Records under [employer] and then click on the [employer].com logo. HOW TO SAFELY DISPOSE OF PRESCRIPTION MEDICATIONS Please use one of the following methods to safely dispose of your unused medications. 1.Use a drug disposal kit: the drug disposal pouch allows you to safely discard your old and unuseddrugs. Ask your nurse to give you one when you are discharged.2.Visit a local take-back location: Many local pharmacies and police departments have programs that collect old and unwanted prescriptiondrugs. Call your local pharmacy or go to http://[employer].Barre/9J6Hh7t to find one close to you.3.Make use of household items: Use cat litter or old coffee grounds to dispose medications if other options arenot available. Mix your drugs with these household products, seal them in an airtight container andthrow it into the garbage. Call [facility]: [phone] to be sure your drugs can be [...] Education Materials Diverticulosis Colonoscopy, Adult, Care After, Ycay-xv-Edbw Medication Leaflets My discharge plan and instructions have been reviewed and explained to me and IYULY CHARLES R understand my current condition and have read and understand these discharge instructions. I have received a written copy of the plan/instructions. If I have questions, I am aware that I should contact my doctor. Patient/Resource Management Planner Signature: Date/Time: Relationship to Patient: Witness Name/Signature: Date/Time: [facility]01-13-2023 Note [place] ADMISSION HISTORY AND PHYSICIAL CHIEF COMPLAINT: HISTORY OF PRESENT ILLNESS: REVIEW OF SYSTEMS: ACTIVE PROBLEMS: (1) Hypertension ([id number]) MEDICATIONS: Active Inpt Meds: None Active PRN Meds: None One Time Meds: None Active IV Meds: Lactated Ringers Infusion 1,000 mL (LR 1,000 mL) Start: 08/07/22 8:02:00 EST, Rate: 50 mL/hr, 08/07/22 8:02:00 EST ALLERGIES: (1) NKA FAMILY HISTORY: SOCIAL HISTORY: PHYSICAL EXAM: VITALS: VxwyufLndoQRGeqggZKOaU3PNU5ZxlqCb(kg) 08/07 07:5936.0--473374YA91/13 86.4 24 Hr Tmax: 36.0 at 08/07 [...] JESSE MARIA MD on 08/07/2022 08:55 AM [facility]01-13-2023 Anesthesiology Consult note Patient: VALERIA EMERY Age: [...] selected or recorded., HTN, CAD stent placed 2016, [place] Family History: COPD - Chronic obstructive pulmonary disease Father Breast cancer Mother Alzheimer disease Mother Procedure history: Stent placement ([id number]) in 2017 at 72 Years. Tonsillectomy (208142342). Appendectomy (336246087). Social History Social & Psychosocial Habits No Data Available . Physical Examination No qualifying data available Measurements from flowsheet : Measurements 08/07/2022 7:59 EST Height 180.3 cm Admission Weight 86.4 kg Weight Method Stated [place] Body Weight 75.26 kg General: Alert and [...] Person #1 We May Share EMILY SMITH [phone] Designated Person #1 Relationship Spouse Privacy Restrictions Requested None Height 180.3 cm Admission Weight 86.4 kg Weight Method Stated [place] Body Weight 75.26 kg Status N/A Sensory Deficits None Sleep Apnea Snore No Sleep Apnea Tired No Sleep Apnea Obstruction No Sleep Apnea Pressure Yes Sleep Apnea BMI No Sleep Apnea Age Yes Sleep Apnea Neck No Sleep Apnea Gender Yes Sleep Apnea Score 3 High Risk for Sleep Apnea No Diagnosed With Sleep Apnea No Advanced Directives Yes Advance Directive Type Barnes Declaration (Living Will) Advance Directive Location Patient [...] Safety Brochure Information Reviewed Unable to complete [facility] Video Viewed No Barriers to Learning None evident Teaching Method Explanation Teaching Evaluation No further teaching needed Preferred Written Language Martiniquais Preferred Spoken Language Martiniquais Information Given by Patient Patient's Current Physicians dr. MIDDLETON ([place]) Discharge To, Anticipated Home with family care [...] Day Patient History . Assessment and Plan [place] [employer] Anesthesiologists (ASA) physical status classification: Class III. Anesthetic Preoperative Plan Premedication: None. Anesthetic technique: MAC. Induction: intravenously. Postoperative pain management: Per surgeon. Risks discussed: nausea, vomiting, headache, sore throat, dental injury, hypotension, allergic reaction, serious complications. Informed consent: signed by patient. Digitally Signed by REGAN GUTIERREZ on 08/07/2022 08:07 AM [facility]04-01-2017 Evaluation note* Diagnosis Onset Date Resolution Status Atherosclerosis of coronary artery of [place] heart without angina pectoris chronic History of coronary artery stent placement October, chronic Hyperlipidemia chronic Syncope resolved [facility] Work Phone: Evaluation noteNo assessment information available [facility] Work Phone: Evaluation note* Diagnosis Onset Date Resolution Status Admit Date Coronary artery disease chronic J cory 2024 10:38am Dyslipidemia chronic February 13 10:38am Essential hypertension chronic Ju ly 2024 10:38am History of coronary artery stent placement October, chronic February 13, 2025 10:38am [facility] [employer] Work Phone: Hospital course Narrative No data available for this section [facility] Hospital Discharge instructions Additional Instructions Implant Used?: [facility] Work Phone: Reason for referral (narrative)No reason for [facility]: Chief Complaint and Reason for Visit Chief Complaint Admit Date 1 Y FU February 13, 2025 10:3 8am INT LABS February 20, 2025 9:10 am Reason for Visit Admit Date Coronary artery disease February 13, 2025 10:38am Dyslipidemia February 13, 2025 10:3 8am Essential hypertension February 13, 2025 1 0:38am History of coronary artery stent placeme nt February 13, 2025 10:38am Chief Complaint 6 M FU E-ORDER Reason for Visit 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 History of coronary artery stent placement Hyperlipidemia Syncope Chief Complaint 6 M FU E-ORDER EORDERS Reason for Visit 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 History of coronary artery stent placement Hyperlipidemia Syncope Chief Complaint CIRCUMCISION,CYSTO Chief Complaint CHEST XRAY Chief Complaint Admit Date 1 Y FU February 13, 2025 10:3 8am Advance Directives No Advanced Directives Records Found Advance Directive Response Recorded Date/ Time Advance Directives Yes October 23 7:52am Living Will No March 05 2:32pm Power of Rice Field Worker No March 05 2:32pm Advance Directive Response Recorded Date/ Time Advance Directives Yes October 23 6:52am Living Will No March 05 1:32pm Power of [employer] Worker No March 05 1:32pm Advance Directive Response Recorded Date/ Time Name of Medical Power of Rice Field Worker August 06, 2022 3:45pm Advance Directives Yes October 23 016 6:52am Living Will Yes August 06 3:45pm Power of [employer] Field Worker Yes August 06, 2022 3:45pm Advance Directive Response Recorded Date/ Time Advance Directives Yes October 23 016 6:52am Living Will Yes August 06 3:45pm Power of Rice Field Worker Yes August 06, 2022 3:45pm Advance Directive Response Recorded Date/ Time Advance Directives Yes October 23 016 7:52am Summary Purpose Family History No Family History Records Found Additional Source Comments Goals (unrecognized section and content) Goals may be documented in a n alternate sectionGoals may be documented in an alternate sectionGoals may be documented in an alternate section No data available for this sectionGoals may be documented in an alternate section No data available for this sectionGoals may be documented in an alternate sectionGoals may be documented in an alternate section Care Team (unrecognized sect ion and content) Care Team Personnel Name: AKIN MIDDLETON DO Member Role: Primary Care Physician Address: Address: [address] [place] [address] Care Team Related Persons Name: SARAH EMERY Address: [address] [place] [address] Care Teams (unrecognized sec tion and content) Team Status: Active Member Role Status Dates Dr. Jean-Pierre Seymour MD Family Provider Active Akin Middleton DO Primary Care Provider Active Team Status: Inactive Member Role Status Dates Akin Middleton DO Primary Care Provider Active BONITA Rivers Attending Provider Active Team Status: Inactive Member Role Status Dates Akin Middleton DO Primary Care Provider Active Dr. Salvador Stearns MD Attending Provider, Referr ing Provider Active Team Status: Active Member Role Status Dates Dr. Jean-Pierre Seymour MD Family Provider Active Dr. Vincent Rogers MD Primary Care Provider Active Team Status: Inactive Member Role Status Dates Dr. Vincent Rogers MD Primary Care Provi bernice, Attending Provider, Referring Provider Active Team Status: Active Member Role/Relationship Status Dates Dr. Jean-Pierre Seymour MD Family Provider Active Dr. Vincent Rogers MD Primary Care Provider Active Team Status: Inactive Member Role/Relationship Status Dates Dr. Vincent Rogers MD Primary Care Provider Active Start: February 13, 2025 End: February 13, 2025 Dr. Vincent Rogers MD Referring Provider Active Start: February 13, 2025 End: February 13, 2025 Dr. Sushila Roberts MD Attending Provider Active Start: February 13, 2025 End: February 13, 2025 Team Status: Active Member Role/Relationship Status Dates Dr. Vincent Rogers MD Primary Care Provider Active Team Status: Inactive Member Role/Relationship Status Dates Dr. Vincent Rogers MD Primary Care Provider Active Start: February 20, 2025 End: February 20, 2025 Dr. Sushila Roberts MD Attending Provider Active Start: February 20, 2025 End: February 20, 2025 Dr. Sushila Roberts MD Referring Provider Active Start: February 20, 2025 End: February 20, 2025 (unrecognized sect ion and content) No Status Records FoundNo Status Records Found INFORMATION SOURCE (unrecogn ized section and content) DATE CREATED AUTHOR 10/11/2023 [facility] DATE CREATED AUTHOR AUTHOR'S ORGANIZ ATION 03/12/[address] [facility] FOR RECORDS PERTAINING TO PATIENTS WHO ARE [...] BE BASED ON THE PRIMARY CLINICAL RECORDS. [employer] [facility]. provides no warranty or guarantee of the accuracy or completeness of information in this document.
== END | disposition home or self-care (01) ==
LOC: CVS 12:47
PROVIDERS: PCP Family Medicine; Referring Provider Internal Medicine Cardiovascular Disease; Visit Provider Internal Medicine Cardiovascular Disease
DX: R55 Syncope and collapse (principal)
CPT/HCPCS: 93306

== ENCOUNTER → 2025-05-04 | Outpatient (CLI) | payer MEDICARE, SELFPAY ==
[2016-11-18 08:42] VITALS: BMI 29.2
[2025-05-04 19:00] LABS: Anion Gap 16 (5-15); BUN 28 mg/dL (4-19); BUN/Creat Ratio 24.0 RATIO (10-20); Calcium,Total 9.8 mg/dL (7.6-11.0); Carbon Dioxide 20.1 mmol/L (21.0-32.0); Chloride 103 mmol/L (98-108); Glucose 105 mg/dL (70-99); PSA,Total - Annual Screen 1.16 ng/mL (0.02-4.00); Potassium 4.2 mmol/L (3.3-5.1)
== END | disposition home or self-care (01) ==
LOC: MFPLAB 13:59
PROVIDERS: PCP Family Medicine; Visit Provider Family Medicine
DX: Z00.00 Encounter for general adult medical examination without abnormal findings (principal); Z12.5 Encounter for screening for malignant neoplasm of prostate
CPT/HCPCS: 36415; 80048; 84153; G0103